=== PATIENT | female | born 1995 | race African-American/Black ===

== ENCOUNTER 2016-11-23 00:49 | Inpatient (IN) | payer OTHER ==
[~2016-11-23] VITALS: Ht 167.6 cm; Wt 67.6 kg
[~2016-11-23 00:49] MED LIST: ACET325T9 PO; AMOX1TAB61 PO; CIPR500T94 PO; DIPH25CA58 PO; FOLI1TAB16 PO; HYDR2TAB13 PO; HYDR4TAB; HYDR4TAB13 PO; HYDR500C3 PO; HYDR8TAB29 PO; IBUP-1007 PO; IBUP200T77 PO; METH10TA2 PO; METH5TAB2 PO; OXYC30TA PO; OXYC80TA16 PO; PRED-220 PO; ZOLP5TAB PO; ZOLP5TAB5
[2016-11-23] MEDS ORDERED: PROMETHAZINE 12.5 MG in IV NORMAL SALINE 50ML 50 ML IV PRN (01:30)
[2016-11-23] MEDS ORDERED: IV NORMAL SALINE 1000ML BAG 1,000 ML IV ONE (01:30)
--- NOTE | 2016-11-23 01:40 | PHYS DOC ---
Past Medical History Past Medical History: Sickle Cell Disease Additional Past Medical Histor: sickle cell anemia Past Surgical History: Alcohol Use: None Drug Use: None Adult General Chief Complaint Chief Complaint: PAIN CONTROL HPI HPI 21-year-old female who's having ongoing sickle cell pain for the last day area patient was recently admitted for sickle cell pain crisis and discharged several days ago. At that time she had anemia of sickle cell disease that required one unit of packed red blood cells. Currently the patient states she feels similar to her prior admission. She complains of generalized body aches. She denies any significant chest pain or shortness of breath. Patient does not follow up with a network systems operator. She has not yet found a network systems operator for her sickle cell pain. She does not have any other significant health problems. Currently she rates her pain a 10/10 on the pain scale. Pt is in no acute distress at this time. Review of Systems Review of Systems Constitutional: Denies fever or chills [] Eyes: Denies change in visual acuity, redness, or eye pain [] HENT: Denies nasal congestion or sore throat [] Respiratory: Denies cough or shortness of breath [] Cardiovascular: No additional information not addressed in HPI [] GI: Denies abdominal pain, nausea, vomiting, bloody stools or diarrhea [] : Denies dysuria or hematuria [] Musculoskeletal: Denies back pain, has joint pain [] Integument: Denies rash or skin lesions [] Neurologic: Denies headache, focal weakness or sensory changes [] Endocrine: Denies polyuria or polydipsia [] Current Medications Current Medications Current Medications Medications (Trade) Dose Ordered Sig/[facility] Start Time Stop Time Status Last Admin Dose Admin Hydromorphone HCl (Dilaudid) 1 mg Q2H 11/23/16 05:00 11/23/16 05:19 1 MG Hydromorphone HCl 1 mg 1 mg 1X ONCE 11/23/16 01:45 11/23/16 01:46 DC 11/23/16 02:18 1 MG Promethazine HCl (Phenergan Im) 12.5 mg 1X ONCE 11/23/16 02:15 11/23/16 02:16 DC 11/23/16 02:15 12.5 MG Promethazine HCl 12.5 mg/Sodium Chloride 50.5 ml @ 151.5 mls/ hr PRN Q6HRS PRN 11/23/16 01:30 Sodium Chloride (Iv Sodium Chloride 0.9% 1000ml Bag) 1,000 ml @ 1,000 mls/hr 1X ONCE 11/23/16 01:30 11/23/16 02:29 DC 11/23/16 01:50 1,000 MLS/HR Allergies Allergies Allergies Coded Allergies Type Severity Reaction Last Updated Verified acetaminophen Allergy Intermediate ITCHING 09/02/16 Yes I S O L A T I O N *CONTACT* Allergy Unknown 09/02/16 Yes Physical Exam Physical Exam Constitutional: Well developed, well nourished, no acute distress, non-toxic appearance. [] HENT: Normocephalic, atraumatic, bilateral external ears normal, oropharynx moist, no oral exudates, nose normal. [] Eyes: PERRLA, EOMI, conjunctiva normal, no discharge. [] Neck: Normal range of motion, no tenderness, supple, no stridor. [] Cardiovascular:Heart rate regular rhythm, no murmur [] Lungs & Thorax: Bilateral breath sounds clear to auscultation [] Abdomen: Bowel sounds normal, soft, no tenderness, no masses, no pulsatile masses. [] Skin: Warm, dry, no erythema, no rash. [] Back: No tenderness, no CVA tenderness. [] Extremities: No tenderness, no cyanosis, no clubbing, ROM intact, no edema. [] Neurologic: Alert and oriented X 3, normal motor function, normal sensory function, no focal deficits noted. [] Psychologic: Affect normal, judgement normal, mood normal. [] Current Patient Data Vital Signs Vital Signs Date Time Temp Pulse Resp B/P Pulse Ox O2 Delivery O2 Flow Rate FiO2 11/23/16 04:00 76 96 11/23/16 03:48 16 11/23/16 00:53 98.3 113/58 Room Air 98.3 Lab Values Laboratory Tests Test 11/23/16 02:40 White Blood Count 15.1x10^3/uL (4.0-11.0) H Red Blood Count 2.25x10^6/uL (3.50-5.40) L Hemoglobin 7.7g/dL (12.0-15.5) L Hematocrit 21.3% (36.0-47.0) L Mean Corpuscular Volume 95fL (79-100) Mean Corpuscular Hemoglobin 34pg (25-35) Mean Corpuscular Hemoglobin Concent 36g/dL (31-37) Red Cell Distribution Width 22.5% (11.5-14.5) H Platelet Count 341x10^3/uL (140-400) Neutrophils (%) (Auto) 51% (31-73) Lymphocytes (%) (Auto) 32% (24-48) Monocytes (%) (Auto) 13% (0-9) H Eosinophils (%) (Auto) 3% (0-3) Basophils (%) (Auto) 1% (0-3) Neutrophils # (Auto) 7.7x10^3uL (1.8-7.7) Lymphocytes # (Auto) 4.8x10^3/uL (1.0-4.8) Monocytes # (Auto) 2.0x10^3/uL (0.0-1.1) H Eosinophils # (Auto) 0.5x10^3/uL (0.0-0.7) Basophils # (Auto) 0.1x10^3/uL (0.0-0.2) Platelet Estimate Adequate (ADEQUATE) Giant Platelets Occ Polychromasia Mod Anisocytosis Mod Microcytosis Mod Sickle Cells Many Target Cells Few Reticulocyte Count (auto) 3.7% (0.5-2.5) H Sodium Level 141mmol/L (136-145) Potassium Level 4.3mmol/L (3.5-5.1) Chloride Level 108mmol/L (98-107) H Carbon Dioxide Level 26mmol/L (21-32) Anion Gap 7 (6-14) Blood Urea Nitrogen 5mg/dL (7-20) L Creatinine 0.5mg/dL (0.6-1.0) L Estimated GFR (Cockcroft-Gault) 185.0 Glucose Level 86mg/dL (70-99) Calcium Level 8.5mg/dL (8.5-10.1) Laboratory Tests 11/23/16 02:40 Laboratory Tests 11/23/16 02:40 EKG EKG [] Radiology/Procedures Radiology/Procedures [] Course & Med Decision Making Course & Med Decision Making Pertinent Labs and Imaging studies reviewed. (See chart for details) This 21-year-old female with ongoing sickle cell pain crisis will have blood work drawn to rule out any anemia. The patient will be given a dose of IV Dilaudid, IV fluid bolus, IV Phenergan and reassessed. If her pain is not controlled I will be admitting her again to the hospital pending her laboratory workup. Laboratory workup at this hospital stay was improved from previous lab draws that she had upon last admission. Her hemoglobin today is 7.7 and her reticulocyte count is 3.7. I discussed the need to admit her for sickle cell pain crisis that she has had no improvement after several doses of Dilaudid. Case was discussed the hospitalist, Dr. Mendoza, who agreed to admit for further evaluation and treatment. Dragon Disclaimer Dragon Disclaimer This electronic medical record was generated, in whole or in part, using a voice recognition dictation system. Departure Departure Impression: Primary Impression: Sickle cell pain crisis Admitting Physician: Tyrese Mendoza Condition: STABLE Referrals: NO PCP (PCP) LUIS ENRIQUE GARCIA DO Nov 23, 2016 01:40
[2016-11-23] MEDS ORDERED: HYDROMORPHONE 2 MG/ML VIAL. IV ONE ×2 (01:45→03:45)
[2016-11-23] MEDS ORDERED: PROMETHAZINE IM 25 MG/ML VIAL IM ONE (02:15)
[2016-11-23 02:54] LABS: BASO # 0.1 x10^3/uL (0.0-0.2); BASO % 1 % (0-3); EOS % 3 % (0-3); HEMATOCRIT 21.3 % (36.0-47.0); HEMOGLOBIN 7.7 g/dL (12.0-15.5); LYMPH # 4.8 x10^3/uL (1.0-4.8); LYMPH % 32 % (24-48); MEAN CORPUSCULAR HEMOGLOBIN 34 pg (25-35); MEAN CORPUSCULAR HGB CONC 36 g/dL (31-37); MEAN CORPUSCULAR VOLUME 95 fL (79-100); MONO % 13 % (0-9); NEUT % 51 % (31-73); PLATELET COUNT 341 x10^3/uL (140-400); RED BLOOD COUNT 2.25 x10^6/uL (3.50-5.40); RED CELL DISTRIBUTION WIDTH 22.5 % (11.5-14.5); WHITE BLOOD COUNT 15.1 x10^3/uL (4.0-11.0)
[2016-11-23 03:21] LABS: CALCIUM 8.5 mg/dL (8.5-10.1); CREATININE 0.5 mg/dL (0.6-1.0); POTASSIUM 4.3 mmol/L (3.5-5.1)
[2016-11-23] MEDS ORDERED: ACETAMINOPHEN 325 MG TABLET. PO PRN ×2 (05:15→22:15)
[2016-11-23] MEDS ORDERED: ONDANSETRON PF 4 MG/2 ML VIAL. IV PRN (05:15)
[2016-11-23] MEDS: HYDROMORPHONE 2 MG/ML VIAL. IV SCH ×10 (05:19→22:53)
[2016-11-23 05:22] LABS: PLT ESTIMATE ADEQUATE (ADEQUATE)
[2016-11-23 05:23] LABS: ANISOCYTOSIS MOD; MICROCYTOSIS MOD; POLYCHROMASIA MOD; SICKLE CELLS MANY; TARGET CELLS FEW
--- NOTE | 2016-11-23 06:11 | ACF ---
Admission Forms Criteria SICKLE CELL DISEASE Clinical Indications for Admission to Inpatient Care (Place 'X' for any and all applicable criteria): Admission is indicated for ANY ONE of the following(1)(2)(3)(4)(5): [X ]I. Inpatient admission required rather than observation care because of ANY ONE of the following: [ ]a) Altered mental status [ ]b) High fever or infection requiring inpatient admission as indicated by ANY ONE of the following: [ ]A. Appropriate outpatient observation care antimicrobial treatment unavailable, not effective, or not appropriate for infection [ ]B. Documented bacteremia [ ]C. Temp >104.9F (40.5C) (oral) [ ]D. Temp >103.1F (oral) or <96.8F(rectal) that does not respond to all emergency treatment measures [ ]c) Supplemental O2 or respiratory therapy for over 24 h that are performable only in acute inpatient setting [X ]d) Continuous parenteral narcoticsother major pain intervention for >24 h performable only in acute inpatient setting. [ ]e) Exchange transfusion [ ]f) Other condition, treatment or monitoring requiring inpatient admission [ ]II. Acute chest syndrome indicated by ALL of the following (10): [ ]a) New alveolar infiltrate involving at least one lung segment [ ]b) Associated pulmonary symptoms or findings as indicated by ANY ONE of the following: [ ]i) Chest pain [ ]ii) Hypoxemia [ ]iii) Tachypnea/dyspnea [ ]iv) Wheezing [ ]v) Cough [ ]vi) Sputum production [ ]III. Significant hypoxemia or acidosis (more severe than baseline) [ ]IV. Emergent surgery needed (eg, acute cholecystitis) [ ]V. -related complication(11) [ ]. Splenic or hepatic sequestration(12) [ ]VII. Aplastic crisis [ ]VIII. Priapism or other vascular complication(13) [ ]IX. Traumatic hyphema [A](14) [ ]X. Underlying condition requiring hospitalization (eg, osteomyelitis) [ ]XI. Signs or symptoms of central nervous system injury indicated by ANY ONE of the following: [ ]a) Stroke(9) [ ]b) Seizure [ ]c) Other significant central nervous system symptom or event [ ]XII. Acute renal failure Extended stay beyond goal length of stay may be needed for: [ ]a) Inadequate pain control [ ]b) Acute chest syndrome [ ]c) Sequestration or aplastic crisis (12) [ ]d) Pneumonia and asthma exacerbation [ ]e) Neurologic or vascular complications (25) [ ]f) Infection (eg, osteomyelitis) that requires ongoing treatment) The original [facility] content created by [facility] has been revised. The portions of the content which have been revised are identified through the use of italic text or in bold, and [facility] has neither reviewed nor approved the modified material. All other unmodified content is copyright [facility]. Please see references footnoted in the original [facility] edition 2016 Admission Criteria Met?: Yes YOKASTA MURRELL Nov 23, 2016 06:11
[2016-11-23] MEDS: IV NORMAL SALINE 1000ML BAG 1,000 ML IV SCH ×3 (09:43→22:53)
[2016-11-23 11:36] VITALS: BP 100/45
[2016-11-23 15:30] VITALS: BP 105/63
[2016-11-23] MEDS ORDERED: ZOLPIDEM 5 MG TABLET. PO PRN (19:30)
[2016-11-23 19:55] VITALS: BP 110/53
[2016-11-23] MEDS ORDERED: HYDROMORPHONE 4 MG TABLET. PO PRN (22:15)
[2016-11-23] MEDS: CEFTRIAXONE SODIUM 1 GM in IV NORMAL SALINE 50ML 50 ML IV SCH (22:50)
[2016-11-23 23:26] VITALS: BP 113/67
[2016-11-24] MEDS: DIPHENHYDRAMINE HCL 25 MG CAPSULE PO PRN ×2 (01:15→23:32)
[2016-11-24] MEDS: HYDROMORPHONE 2 MG/ML VIAL. IV SCH ×8 (01:17→15:00)
--- NOTE | 2016-11-24 02:28 | HP ---
ADMIT DATE: 11/23/2016 CHIEF COMPLAINT: Diffuse pain. HISTORY OF PRESENT ILLNESS: The patient is a pleasant middle-aged -[place] female who has sickle cell disease. She is well known to our service. She once again presents with her sickle cell crisis, has hemoglobin of 7.7. Retic count is high at 3.7. I have discussed the case with the ER physician. We are going to admit the patient, give her appropriate sickle cell crisis therapy. PAST MEDICAL HISTORY: Sickle cell disease, chronic pain, narcotic dependence. ALLERGIES: TYLENOL. FAMILY HISTORY: Sickle cell disease. SOCIAL HISTORY: She does not drink, smoke or take drugs. She is disabled. MEDICATIONS: Reviewed, please refer to the MRAD. REVIEW OF SYSTEMS: GENERAL: No history of weight change, weakness or fevers. She complains of diffuse pain. SKIN: No bruising, hair changes or rashes. EYES: No blurred, double or loss of vision. NOSE AND THROAT: No history of nosebleeds, hoarseness or sore throat. HEART: No history of palpitations, chest pain or shortness of breath on exertion. LUNGS: Denies cough, hemoptysis, wheezing or shortness of breath. GASTROINTESTINAL: Denies changes in appetite, nausea, vomiting, diarrhea or constipation. GENITOURINARY: No history of frequency, urgency, hesitancy or nocturia. NEUROLOGIC: Denies history of numbness, tingling, tremor or weakness. PSYCHIATRIC: No history of panic, anxiety or depression. ENDOCRINE: No history of heat or cold intolerance, polyuria or polydipsia. EXTREMITIES: Denies muscle weakness, joint pain, pain on walking or stiffness. PHYSICAL EXAMINATION: VITAL SIGNS: Temperature is afebrile, pulse 74, respirations 16, blood pressure 110/53. GENERAL: She is sleeping. She awakened. She is pleasant. HEART: Normal S1, S2. LUNGS: Clear. ABDOMEN: Soft, positive bowel sounds, tender. EXTREMITIES: Trace edema. SKIN: No rashes. PSYCHIATRIC: She is depressed. VASCULAR: Slow capillary refill. ENDOCRINE: No thyromegaly. LYMPHATICS: No cervical nodes. HEMATOPOIETIC: No bruising. LABORATORY DATA: White count 15, hemoglobin 7.7, platelets 341. Electrolytes: Sodium 141, potassium 4.3, chloride ____, bicarbonate 26, BUN 5, creatinine 0.5, glucose 86. ASSESSMENT AND PLAN: Sickle cell crisis. The patient has been admitted. We will give her vitamins, narcotics, IV fluids, p.r.n. oxygen, daily retic count. Continue her home medicines. Consult Dr. Brooks. OFELIA VAZQUEZ DO DR: KAILEY/rachel JOB#: [id number] / [id number]
[2016-11-24 03:21] VITALS: BP 106/67
[2016-11-24 07:03] VITALS: BP 94/49
[2016-11-24] MEDS: PREDNISONE 20 MG TABLET PO SCH (08:46)
[2016-11-24] MEDS: FOLIC ACID 1 MG TABLET PO SCH (08:46)
[2016-11-24] MEDS: HYDROXYUREA 500 MG CAPSULE PO SCH (08:54)
--- NOTE | 2016-11-24 08:57 | PDOC ---
Provider Note Provider Note onc consult dictated- [id number] SCD with repeated crises, 5 admits in last 3 month due to noncompliance, ran out of hydrea this time. Autoantibody devt from previous transfusions- Limit transfusions for hgb < 6 As retic count normalizes can DC NCM help with any interventions that can help limit admissions, ensure f/u. The hospital has become her PCP. RADHA ALSTON DO Nov 24, 2016 08:57
[2016-11-24 09:27] LABS: BASO # 0.1 x10^3/uL (0.0-0.2); BASO % 1 % (0-3); EOS % 3 % (0-3); HEMOGLOBIN 7.4 g/dL (12.0-15.5); LYMPH % 30 % (24-48); MEAN CORPUSCULAR HEMOGLOBIN 33 pg (25-35); MEAN CORPUSCULAR HGB CONC 35 g/dL (31-37); MEAN CORPUSCULAR VOLUME 94 fL (79-100); MONO % 12 % (0-9); NEUT % 54 % (31-73); PLATELET COUNT 377 x10^3/uL (140-400); RED BLOOD COUNT 2.23 x10^6/uL (3.50-5.40); WHITE BLOOD COUNT 13.3 x10^3/uL (4.0-11.0)
[2016-11-24] MEDS: IV NORMAL SALINE 1000ML BAG 1,000 ML IV SCH (09:30)
[2016-11-24 10:48] VITALS: BP 96/53
[2016-11-24] MEDS: HYDROMORPHONE STANDARD PCA 30 ML IV PRN (11:08)
--- NOTE | 2016-11-24 11:55 | PDOC ---
PROGRESS NOTES Chief Complaint Chief Complaint CC: Diffuse Pain 1. Sickle cell disease 2. Chronic pain 3. Narcotic dependence 4. Anemia History of Present Illness History of Present Illness Pt lying in bed today Pt takes Dilaudid at home, she says this is the only thing that helps her pain Pt said Dilaudid PURCHASING ANALYST is what controlled her pain during previous hospitalizations Discussed pain control and low Hgb with RN VSS Vitals Vitals Vital Signs Date Time Temp Pulse Resp B/P Pulse Ox O2 Delivery O2 Flow Rate FiO2 11/24/16 11:08 Room Air 11/24/16 10:48 98.1 89 17 96/53 95 98.1 Physical Exam General: Alert, Oriented X3 Heart: Regular rate, No murmurs Lungs: Clear, Other (No wheezing) Abdomen: Soft, No tenderness Extremities: No cyanosis, No edema Skin: No rashes, No breakdown Labs LABS Laboratory Tests Test 11/24/16 08:30 White Blood Count 13.3x10^3/uL (4.0-11.0) Red Blood Count 2.23x10^6/uL (3.50-5.40) Hemoglobin 7.4g/dL (12.0-15.5) Hematocrit 21.0% (36.0-47.0) Mean Corpuscular Volume 94fL (79-100) Mean Corpuscular Hemoglobin 33pg (25-35) Mean Corpuscular Hemoglobin Concent 35g/dL (31-37) Red Cell Distribution Width 22.0% (11.5-14.5) Platelet Count 377x10^3/uL (140-400) Neutrophils (%) (Auto) 54% (31-73) Lymphocytes (%) (Auto) 30% (24-48) Monocytes (%) (Auto) 12% (0-9) Eosinophils (%) (Auto) 3% (0-3) Basophils (%) (Auto) 1% (0-3) Neutrophils # (Auto) 7.2x10^3uL (1.8-7.7) Lymphocytes # (Auto) 4.0x10^3/uL (1.0-4.8) Monocytes # (Auto) 1.6x10^3/uL (0.0-1.1) Eosinophils # (Auto) 0.4x10^3/uL (0.0-0.7) Basophils # (Auto) 0.1x10^3/uL (0.0-0.2) Reticulocyte Count (auto) 6.3% (0.5-2.5) Ferritin 1224ng/mL (8-252) Review of Systems Review of Systems Complains of generalized pain Complains of weakness Complains of insomnia Assessment and Plan Assessmemt and Plan Problems Medical Problems: (1) Sickle cell pain crisis Status: Acute Assessment: CC: Diffuse Pain 1. Sickle cell disease 2. Chronic pain 3. Narcotic dependence Plan: Pain control with PURCHASING ANALYST Dilaudid Heme/Onc following - Possible DC as retic count normalizes Daily retic count Vitamins Continue fluids Start Ambien Monitor O2 sats Monitor Hgb level Recheck labs in am PTOT Appreciate subspecialty input Problems: Comment Review of Relevant I have reviewed the following items chris (where applicable) has been applied. Labs Laboratory Tests Test 11/23/16 02:40 11/24/16 08:30 White Blood Count 15.1x10^3/uL (4.0-11.0) 13.3x10^3/uL (4.0-11.0) Red Blood Count 2.25x10^6/uL (3.50-5.40) 2.23x10^6/uL (3.50-5.40) Hemoglobin 7.7g/dL (12.0-15.5) 7.4g/dL (12.0-15.5) Hematocrit 21.3% (36.0-47.0) 21.0% (36.0-47.0) Mean Corpuscular Volume 95fL (79-100) 94fL (79-100) Mean Corpuscular Hemoglobin 34pg (25-35) 33pg (25-35) Mean Corpuscular Hemoglobin Concent 36g/dL (31-37) 35g/dL (31-37) Red Cell Distribution Width 22.5% (11.5-14.5) 22.0% (11.5-14.5) Platelet Count 341x10^3/uL (140-400) 377x10^3/uL (140-400) Neutrophils (%) (Auto) 51% (31-73) 54% (31-73) Lymphocytes (%) (Auto) 32% (24-48) 30% (24-48) Monocytes (%) (Auto) 13% (0-9) 12% (0-9) Eosinophils (%) (Auto) 3% (0-3) 3% (0-3) Basophils (%) (Auto) 1% (0-3) 1% (0-3) Neutrophils # (Auto) 7.7x10^3uL (1.8-7.7) 7.2x10^3uL (1.8-7.7) Lymphocytes # (Auto) 4.8x10^3/uL (1.0-4.8) 4.0x10^3/uL (1.0-4.8) Monocytes # (Auto) 2.0x10^3/uL (0.0-1.1) 1.6x10^3/uL (0.0-1.1) Eosinophils # (Auto) 0.5x10^3/uL (0.0-0.7) 0.4x10^3/uL (0.0-0.7) Basophils # (Auto) 0.1x10^3/uL (0.0-0.2) 0.1x10^3/uL (0.0-0.2) Platelet Estimate Adequate (ADEQUATE) Giant Platelets Occ Polychromasia Mod Anisocytosis Mod Microcytosis Mod Sickle Cells Many Target Cells Few Reticulocyte Count (auto) 3.7% (0.5-2.5) 6.3% (0.5-2.5) Sodium Level 141mmol/L (136-145) Potassium Level 4.3mmol/L (3.5-5.1) Chloride Level 108mmol/L (98-107) Carbon Dioxide Level 26mmol/L (21-32) Anion Gap 7 (6-14) Blood Urea Nitrogen 5mg/dL (7-20) Creatinine 0.5mg/dL (0.6-1.0) Estimated GFR (Cockcroft-Gault) 185.0 Glucose Level 86mg/dL (70-99) Calcium Level 8.5mg/dL (8.5-10.1) Ferritin 1224ng/mL (8-252) Laboratory Tests Test 11/24/16 08:30 White Blood Count 13.3x10^3/uL (4.0-11.0) Red Blood Count 2.23x10^6/uL (3.50-5.40) Hemoglobin 7.4g/dL (12.0-15.5) Hematocrit 21.0% (36.0-47.0) Mean Corpuscular Volume 94fL (79-100) Mean Corpuscular Hemoglobin 33pg (25-35) Mean Corpuscular Hemoglobin Concent 35g/dL (31-37) Red Cell Distribution Width 22.0% (11.5-14.5) Platelet Count 377x10^3/uL (140-400) Neutrophils (%) (Auto) 54% (31-73) Lymphocytes (%) (Auto) 30% (24-48) Monocytes (%) (Auto) 12% (0-9) Eosinophils (%) (Auto) 3% (0-3) Basophils (%) (Auto) 1% (0-3) Neutrophils # (Auto) 7.2x10^3uL (1.8-7.7) Lymphocytes # (Auto) 4.0x10^3/uL (1.0-4.8) Monocytes # (Auto) 1.6x10^3/uL (0.0-1.1) Eosinophils # (Auto) 0.4x10^3/uL (0.0-0.7) Basophils # (Auto) 0.1x10^3/uL (0.0-0.2) Reticulocyte Count (auto) 6.3% (0.5-2.5) Ferritin 1224ng/mL (8-252) Medications Current Medications Hydromorphone HCl 1 mg 1 mg 1X ONCE IV Last administered on 11/23/16 02:18; Start 11/23/16 at 01:45; Stop 11/23/16 at 01:46; Status DC Promethazine HCl 12.5 mg/Sodium Chloride 50.5 ml @ 151.5 mls/ hr PRN Q6HRS PRN IV NAUSEA/VOMITING; Start 11/23/16 at 01:30 Sodium Chloride (Iv Sodium Chloride 0.9% 1000ml Bag) 1,000 ml @ 1,000 mls/hr 1X ONCE IV Last administered on 11/23/16 01:50; Start 11/23/16 at 01:30; Stop 11/23/16 at 02:29; Status DC Promethazine HCl (Phenergan Im) 12.5 mg 1X ONCE IM Last administered on 02:15; Start 11/23/16 at 02:15; Stop 11/23/16 at 02:16; Status DC Hydromorphone HCl (Dilaudid) 1 mg 1X ONCE IV Last administered on 11/23/16 03 :48; Start 11/23/16 at 03:45; Stop 11/23/16 at 03:46; Status DC Ondansetron HCl 4 mg 4 mg PRN Q8HRS PRN IV NAUSEA/VOMITING; Start 11/23/16 at 05:15; Stop 11/24/16 at 05:14; Status DC Sodium Chloride (Iv Sodium Chloride 0.9% 1000ml Bag) 1,000 ml @ 125 mls/hr Q8H IV Last administered on 11/23/16 22:53; Start 11/23/16 at 05:15; Stop at 05:14; Status DC Acetaminophen (Tylenol) 650 mg PRN Q4HRS PRN PO FEVER; Start 11/23/16 at 05:15 ; Stop 11/24/16 at 05:14; Status DC Hydromorphone HCl (Dilaudid) 1 mg Q2H IV Last administered on 11/24/16 08:47; Start 11/23/16 at 05:00 Zolpidem Tartrate (Ambien) 5 mg PRN QHS PRN PO sleep Last administered on 20:41; Start 11/23/16 at 19:30 Acetaminophen (Tylenol) 325 mg PRN QID PRN PO PAIN; Start 11/23/16 at 22:15 Diphenhydramine HCl (Benadryl) 50 mg PRN Q6HRS PRN PO ANXIETY / AGITATION Last administered on 11/24/16 01:15; Start 11/23/16 at 22:15 Folic Acid (Folic Acid) 1 mg DAILY PO Last administered on 11/24/16 08:46; Start 11/24/16 at 09:00 Hydromorphone HCl (Dilaudid) 4 mg PRN Q4HRS PRN PO PAIN; Start 11/23/16 at 22: 15 Hydroxyurea (Hydrea) 1,000 mg DAILY PO Last administered on 11/24/16 08:54; Start 11/24/16 at 09:00 Ibuprofen (Motrin) 200 mg PRN Q6HRS PRN PO INFLAMMATION; Start 11/23/16 at 22: 15 Prednisone 20 mg 20 mg DAILY PO Last administered on 11/24/16 08:46; Start at 09:00 Ceftriaxone Sodium 1 gm/ Sodium Chloride 50 ml @ 100 mls/hr Q24H IV Last administered on 11/23/16 22:50; Start 11/23/16 at 22:30 Sodium Chloride 1,000 ml @ 25 mls/hr Q24H IV ; Start 11/24/16 at 09:30 Hydromorphone HCl (Dilaudid Standard PURCHASING ANALYST) 30 ml @ 0 mls/hr CONT PRN PRN IV PROTOCOL Last administered on 11/24/16 11:08; Start 11/24/16 at 09:30 Active Scripts Active Dilaudid (Hydromorphone Hcl) 4 Mg Tablet 1 Tab PO Q4HRS PRN Tylenol (Acetaminophen) 325 Mg Tablet 2 Tab PO QID PRN Benadryl (Diphenhydramine Hcl) 25 Mg Capsule 50 Mg PO Q6HRS PRN Ambien (Zolpidem Tartrate) 5 Mg Tablet 1 Tab PO QHS PRN Prednisone 10 Mg Tablet 10 Mg PO UD Take 3 tablets by mouth daily for 3 days, then take 2 tablets by mouth daily for 3 days, then take 1 tablet by mouth daily for 3 days, then stop. Ibuprofen 200 Mg Tablet 200 Mg PO PRN Q6HRS PRN Folic Acid 1 Mg Tablet 1 Tab PO DAILY Hydroxyurea 500 Mg Capsule 1,000 Mg PO DAILY Vitals/I & O Vital Sign - Last 24 Hours 11/23/16 11/23/16 11/23/16 11/23/16 11:56 12:26 14:04 15:30 Temp 97.1 97.1 Pulse 85 Resp 17 B/P 105/63 Pulse Ox 96 96 96 94 O2 Delivery Room Air Room Air Room Air Room Air 11/23/16 11/23/16 11/23/16 11/23/16 16:39 18:32 19:55 20:20 Temp 97.9 97.9 Pulse 74 Resp 16 B/P 110/53 Pulse Ox 94 94 96 O2 Delivery Room Air Room Air Room Air Room Air 11/23/16 11/24/16 11/24/16 11/24/16 23:26 03:21 07:03 08:47 Temp 98.1 97.9 97.9 98.1 97.9 97.9 Pulse 83 77 78 Resp 16 18 17 B/P 113/67 106/67 94/49 Pulse Ox 93 96 95 O2 Delivery Room Air Room Air Room Air Room Air 11/24/16 11/24/16 10:48 11:08 Temp 98.1 98.1 Pulse 89 Resp 17 B/P 96/53 Pulse Ox 95 O2 Delivery Room Air Room Air Intake and Output 11/23/16 11/23/16 11/24/16 15:00 23:00 07:00 Intake Total 500 ml 540 ml Balance 500 ml 540 ml OFELIA VAZQUEZ III DO Nov 24, 2016 11:55
[2016-11-24] MEDS ORDERED: ZOLPIDEM 5 MG TABLET. PO PRN (12:00)
[2016-11-24 14:52] VITALS: BP 117/64
[2016-11-24 19:25] VITALS: BP 105/54
[2016-11-24] MEDS: CEFTRIAXONE SODIUM 1 GM in IV NORMAL SALINE 50ML 50 ML IV SCH (21:48)
[2016-11-24 23:13] VITALS: BP 110/59
--- NOTE | 2016-11-25 02:55 | CONS ---
DATE OF CONSULTATION: 11/24/2016 REFERRING PROVIDER: Dr. Mendoza. REASON FOR CONSULTATION: Sickle cell. HISTORY OF PRESENT ILLNESS: The patient is a 21-year-old female who has been admitted to the hospital now 5 times in the last 2 months. She has a history of sickle cell disease with pain crises when she runs out of pain medications are Hydrea, although she has an insurance, she does not seek the care of a PCP or outpatient subway operator in fact she has denied seen several different institutions in the [place] area. She again presented overnight with worsening diffuse pain. She has not had any fevers, chills, sore throat, cough, nausea, vomiting or diarrhea. She states that she ran out of Hydrea 1 week ago. Typically her hospital admissions are rather prolonged that she continues to have diffuse pain sometimes for up to two weeks. Her hemoglobin is roughly at her baseline at 7.7. Retic count 3.7. PAST MEDICAL HISTORY: Sickle cell disease, iron overload, transfuse and associated antibodies making finding compatible blood difficult. PAST SURGICAL HISTORY: . FAMILY HISTORY: Sickle cell disease in both her parents. SOCIAL HISTORY: She smokes 1 pack a day. ALLERGIES: TYLENOL. CURRENT MEDICATIONS: Prednisone, Hydrea, folic acid, Rocephin, ibuprofen p.r.n., Dilaudid p.r.n., Benadryl p.r.n., Ambien p.r.n., Dilaudid p.r.n., Compazine rather p.r.n. REVIEW OF SYSTEMS: Ten point review of systems completed and unremarkable right now with the exception of the diffuse arthralgias, which are typical for her during her admission. PHYSICAL EXAMINATION: VITAL SIGNS: Temperature 97.9, pulse 78, respiratory rate 17, blood pressure 94/49, 95% O2 on room air. GENERAL: She is alert and oriented. She is fatigued. She is not in any distress, this appears to be her baseline functional status compared to previous admission. HEENT: Extraocular muscles are intact. Sclerae are without icterus. Mucous membranes are dry. CARDIOVASCULAR: Heart is regular in rhythm and rate. LUNGS: Clear to auscultation bilaterally. ABDOMEN: Soft, nontender. EXTREMITIES: No edema. NEUROLOGIC: No focal deficits. IMAGING AND LABORATORY DATA: Labs appear at her baseline with CBC and retic count as above. BMP unremarkable. ASSESSMENT AND PLAN: The patient is a 21-year-old female with the following medical problems: 1. Sickle cell disease with noncompliance with Hydrea and pain medications as an outpatient. Despite having an insurance, she refuses to establish care with a PCP or subway operator and has refused to follow both in the [facility] and system. Our hospital has essentially become her primary care and when she runs out of pain medication, she returns with complications and for refills. I have asked the nurse case management assistance and possibly developing some sort of a better plan. She should continue on her Hydrea and folic acid. Her labs really do not appear that different from her baseline and hopefully this admission will be much shorter. I would recommend following her reticulocyte count and as it begins to normalize, we can plan for discharge. Please limit blood transfusions for unless her hemoglobin drops less than 6. 2. Iron overload. due to previous transfusions, repeat ferritin is pending. She would not be compliant with outpatient iron chelation therapy. 3. Medical noncompliance. Nurse case management consult as above. Although I doubt if she would see them, I would also recommend a psychiatric consult for depression or other reasons that seemed to contribute to her repeated noncompliance. 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 Last admission, we had special genotyping performed with the [facility]; however, it is difficult to obtain compatible units of blood for her. She also sometimes has mild transfusion reactions, therefore, it is imperative that we limit transfusions as the above. Thank you again for alerting us of her admission. RADHA ALSTON DO DR: Jose JOB#: [id number] / [id number] LINDA
[2016-11-25 03:20] VITALS: BP 112/69
[2016-11-25 05:56] LABS: BASO # 0.1 x10^3/uL (0.0-0.2); BASO % 1 % (0-3); EOS % 2 % (0-3); HEMOGLOBIN 7.2 g/dL (12.0-15.5); LYMPH # 4.8 x10^3/uL (1.0-4.8); LYMPH % 28 % (24-48); MEAN CORPUSCULAR HEMOGLOBIN 33 pg (25-35); MEAN CORPUSCULAR HGB CONC 35 g/dL (31-37); MEAN CORPUSCULAR VOLUME 95 fL (79-100); MONO % 12 % (0-9); NEUT % 58 % (31-73); PLATELET COUNT 414 x10^3/uL (140-400); RED BLOOD COUNT 2.17 x10^6/uL (3.50-5.40); RED CELL DISTRIBUTION WIDTH 22.3 % (11.5-14.5); WHITE BLOOD COUNT 17.4 x10^3/uL (4.0-11.0)
[2016-11-25 05:58] LABS: CREATININE 0.5 mg/dL (0.6-1.0); POTASSIUM 4.2 mmol/L (3.5-5.1)
[2016-11-25 06:43] LABS: HEMATOCRIT 20.5 % (36.0-47.0)
[2016-11-25 07:00] VITALS: BP 100/66
[2016-11-25] MEDS: PREDNISONE 20 MG TABLET PO SCH (09:04)
[2016-11-25] MEDS: FOLIC ACID 1 MG TABLET PO SCH (09:04)
--- NOTE | 2016-11-25 09:11 | PDOC ---
Subjective: Subjective: Onc f/u- SCD Pt with diffuse arthralgias, unchanged. No SOB, CP, abd pain. Concerned about sleep meds. Objective: Vital Signs: Vital Signs Date Time Temp Pulse Resp B/P Pulse Ox O2 Delivery O2 Flow Rate FiO2 11/25/16 07:00 98.5 72 18 100/66 96 Room Air 98.5 Physical Exam: Heart: Regular rate Extremities: No edema General: Alert, Oriented X3, Cooperative, No acute distress Lungs: Normal air movement Psych/Mental Status: Mental status NL, Mood NL Labs/Imaging: CBC stable, hgb 7.2 Retuc upt o 6.3 Ferritin 1200 Assessment/Plan A/P: 1. Sickle cell disease with noncompliance with Hydrea and pain medications as an outpatient. - Refuses to establish outpt care, comes to hospital when she runs out of meds - Continue hydrea, folic acid - Hold transfusions until hgb < 6 due to iron overload, autoantibodies causing difficulty finding blood and h/o transfusion reactions 2. Iron overload due to previous transfusions, - Ferritin 1200 - She would not be compliant with outpatient iron chelation therapy. 3. Medical noncompliance. Behavior, not financial 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 Limit transfusions as able. Ok to DC when retic count trends down. RADHA ALSTON DO Nov 25, 2016 09:11
[2016-11-25] MEDS: HYDROXYUREA 500 MG CAPSULE PO SCH (09:16)
[2016-11-25] MEDS: IV NORMAL SALINE 1000ML BAG 1,000 ML IV SCH ×2 (09:30→17:52)
[2016-11-25 10:45] VITALS: BP 111/64
--- NOTE | 2016-11-25 11:35 | PDOC ---
PROGRESS NOTES Chief Complaint Chief Complaint CC: Diffuse Pain 1. Sickle cell disease 2. Chronic pain 3. Narcotic dependence 4. Anemia History of Present Illness History of Present Illness Pt lying in bed today Pt says Dilaudid [employer] is not helping her pain at all, will increase dose Pt rates pain as 10/10 especially in her back Pt says she is unable to walk more than a few steps Discussed pain control and low Hgb with RN Pt denies opiate induced constipation Pt had difficulty sleeping last night Pt says she only got one 5mg Ambien last night even though the med orders indicate she can have two by an hour Called pharmacology to clarify that she can have a total of 10mg tonight. VSS Vitals Vitals Vital Signs Date Time Temp Pulse Resp B/P Pulse Ox O2 Delivery O2 Flow Rate FiO2 11/25/16 10:45 98.4 88 18 111/64 97 Room Air 98.4 Physical Exam General: Alert, Oriented X3, Cooperative, No acute distress Heart: Regular rate, No murmurs Lungs: Clear, Other (No wheezing) Abdomen: Soft, No tenderness Extremities: No edema Skin: No rashes, No breakdown Labs LABS Laboratory Tests Test 11/25/16 04:12 White Blood Count 17.4x10^3/uL (4.0-11.0) Red Blood Count 2.17x10^6/uL (3.50-5.40) Hemoglobin 7.2g/dL (12.0-15.5) Hematocrit 20.5% (36.0-47.0) Mean Corpuscular Volume 95fL (79-100) Mean Corpuscular Hemoglobin 33pg (25-35) Mean Corpuscular Hemoglobin Concent 35g/dL (31-37) Red Cell Distribution Width 22.3% (11.5-14.5) Platelet Count 414x10^3/uL (140-400) Neutrophils (%) (Auto) 58% (31-73) Lymphocytes (%) (Auto) 28% (24-48) Monocytes (%) (Auto) 12% (0-9) Eosinophils (%) (Auto) 2% (0-3) Basophils (%) (Auto) 1% (0-3) Neutrophils # (Auto) 10.1x10^3uL (1.8-7.7) Lymphocytes # (Auto) 4.8x10^3/uL (1.0-4.8) Monocytes # (Auto) 2.1x10^3/uL (0.0-1.1) Eosinophils # (Auto) 0.3x10^3/uL (0.0-0.7) Basophils # (Auto) 0.1x10^3/uL (0.0-0.2) Reticulocyte Count (auto) 4.1% (0.5-2.5) Sodium Level 141mmol/L (136-145) Potassium Level 4.2mmol/L (3.5-5.1) Chloride Level 108mmol/L (98-107) Carbon Dioxide Level 22mmol/L (21-32) Anion Gap 11 (6-14) Blood Urea Nitrogen 6mg/dL (7-20) Creatinine 0.5mg/dL (0.6-1.0) Estimated GFR (Cockcroft-Gault) 185.0 Glucose Level 75mg/dL (70-99) Calcium Level 9.0mg/dL (8.5-10.1) Review of Systems Review of Systems Complains of diffuse pain Complains of insomnia Assessment and Plan Assessmemt and Plan Problems Medical Problems: (1) Sickle cell pain crisis Status: Acute Assessment: CC: Diffuse Pain 1. Sickle cell disease 2. Chronic pain 3. Narcotic dependence 4. Anemia Plan: Increase dose of pain medication Ambien for insomnia Recheck retic count in am Heme/onc following - continue hydrea, folic acid, hold transfusions until hgb < 6, OK to DC when retic count trends down PTOT Recheck labs in am Continue home meds Problems: Comment Review of Relevant I have reviewed the following items chris (where applicable) has been applied. Labs Laboratory Tests Test 11/24/16 08:30 11/25/16 04:12 White Blood Count 13.3x10^3/uL (4.0-11.0) 17.4x10^3/uL (4.0-11.0) Red Blood Count 2.23x10^6/uL (3.50-5.40) 2.17x10^6/uL (3.50-5.40) Hemoglobin 7.4g/dL (12.0-15.5) 7.2g/dL (12.0-15.5) Hematocrit 21.0% (36.0-47.0) 20.5% (36.0-47.0) Mean Corpuscular Volume 94fL (79-100) 95fL (79-100) Mean Corpuscular Hemoglobin 33pg (25-35) 33pg (25-35) Mean Corpuscular Hemoglobin Concent 35g/dL (31-37) 35g/dL (31-37) Red Cell Distribution Width 22.0% (11.5-14.5) 22.3% (11.5-14.5) Platelet Count 377x10^3/uL (140-400) 414x10^3/uL (140-400) Neutrophils (%) (Auto) 54% (31-73) 58% (31-73) Lymphocytes (%) (Auto) 30% (24-48) 28% (24-48) Monocytes (%) (Auto) 12% (0-9) 12% (0-9) Eosinophils (%) (Auto) 3% (0-3) 2% (0-3) Basophils (%) (Auto) 1% (0-3) 1% (0-3) Neutrophils # (Auto) 7.2x10^3uL (1.8-7.7) 10.1x10^3uL (1.8-7.7) Lymphocytes # (Auto) 4.0x10^3/uL (1.0-4.8) 4.8x10^3/uL (1.0-4.8) Monocytes # (Auto) 1.6x10^3/uL (0.0-1.1) 2.1x10^3/uL (0.0-1.1) Eosinophils # (Auto) 0.4x10^3/uL (0.0-0.7) 0.3x10^3/uL (0.0-0.7) Basophils # (Auto) 0.1x10^3/uL (0.0-0.2) 0.1x10^3/uL (0.0-0.2) Reticulocyte Count (auto) 6.3% (0.5-2.5) 4.1% (0.5-2.5) Ferritin 1224ng/mL (8-252) Sodium Level 141mmol/L (136-145) Potassium Level 4.2mmol/L (3.5-5.1) Chloride Level 108mmol/L (98-107) Carbon Dioxide Level 22mmol/L (21-32) Anion Gap 11 (6-14) Blood Urea Nitrogen 6mg/dL (7-20) Creatinine 0.5mg/dL (0.6-1.0) Estimated GFR (Cockcroft-Gault) 185.0 Glucose Level 75mg/dL (70-99) Calcium Level 9.0mg/dL (8.5-10.1) Laboratory Tests Test 11/25/16 04:12 White Blood Count 17.4x10^3/uL (4.0-11.0) Red Blood Count 2.17x10^6/uL (3.50-5.40) Hemoglobin 7.2g/dL (12.0-15.5) Hematocrit 20.5% (36.0-47.0) Mean Corpuscular Volume 95fL (79-100) Mean Corpuscular Hemoglobin 33pg (25-35) Mean Corpuscular Hemoglobin Concent 35g/dL (31-37) Red Cell Distribution Width 22.3% (11.5-14.5) Platelet Count 414x10^3/uL (140-400) Neutrophils (%) (Auto) 58% (31-73) Lymphocytes (%) (Auto) 28% (24-48) Monocytes (%) (Auto) 12% (0-9) Eosinophils (%) (Auto) 2% (0-3) Basophils (%) (Auto) 1% (0-3) Neutrophils # (Auto) 10.1x10^3uL (1.8-7.7) Lymphocytes # (Auto) 4.8x10^3/uL (1.0-4.8) Monocytes # (Auto) 2.1x10^3/uL (0.0-1.1) Eosinophils # (Auto) 0.3x10^3/uL (0.0-0.7) Basophils # (Auto) 0.1x10^3/uL (0.0-0.2) Reticulocyte Count (auto) 4.1% (0.5-2.5) Sodium Level 141mmol/L (136-145) Potassium Level 4.2mmol/L (3.5-5.1) Chloride Level 108mmol/L (98-107) Carbon Dioxide Level 22mmol/L (21-32) Anion Gap 11 (6-14) Blood Urea Nitrogen 6mg/dL (7-20) Creatinine 0.5mg/dL (0.6-1.0) Estimated GFR (Cockcroft-Gault) 185.0 Glucose Level 75mg/dL (70-99) Calcium Level 9.0mg/dL (8.5-10.1) Medications Current Medications Hydromorphone HCl 1 mg 1 mg 1X ONCE IV Last administered on 11/23/16 02:18; Start 11/23/16 at 01:45; Stop 11/23/16 at 01:46; Status DC Promethazine HCl 12.5 mg/Sodium Chloride 50.5 ml @ 151.5 mls/ hr PRN Q6HRS PRN IV NAUSEA/VOMITING; Start 11/23/16 at 01:30 Sodium Chloride (Iv Sodium Chloride 0.9% 1000ml Bag) 1,000 ml @ 1,000 mls/hr 1X ONCE IV Last administered on 11/23/16 01:50; Start 11/23/16 at 01:30; Stop 11/23/16 at 02:29; Status DC Promethazine HCl (Phenergan Im) 12.5 mg 1X ONCE IM Last administered on 02:15; Start 11/23/16 at 02:15; Stop 11/23/16 at 02:16; Status DC Hydromorphone HCl (Dilaudid) 1 mg 1X ONCE IV Last administered on 11/23/16 03 :48; Start 11/23/16 at 03:45; Stop 11/23/16 at 03:46; Status DC Ondansetron HCl 4 mg 4 mg PRN Q8HRS PRN IV NAUSEA/VOMITING; Start 11/23/16 at 05:15; Stop 11/24/16 at 05:14; Status DC Sodium Chloride (Iv Sodium Chloride 0.9% 1000ml Bag) 1,000 ml @ 125 mls/hr Q8H IV Last administered on 11/23/16 22:53; Start 11/23/16 at 05:15; Stop at 05:14; Status DC Acetaminophen (Tylenol) 650 mg PRN Q4HRS PRN PO FEVER; Start 11/23/16 at 05:15 ; Stop 11/24/16 at 05:14; Status DC Hydromorphone HCl (Dilaudid) 1 mg Q2H IV Last administered on 11/24/16 08:47; Start 11/23/16 at 05:00; Stop 11/24/16 at 15:06; Status DC Zolpidem Tartrate (Ambien) 5 mg PRN QHS PRN PO sleep Last administered on 20:41; Start 11/23/16 at 19:30; Stop 11/24/16 at 15:12; Status DC Acetaminophen (Tylenol) 325 mg PRN QID PRN PO PAIN; Start 11/23/16 at 22:15 Diphenhydramine HCl (Benadryl) 50 mg PRN Q6HRS PRN PO ANXIETY / AGITATION Last administered on 11/24/16 23:32; Start 11/23/16 at 22:15 Folic Acid (Folic Acid) 1 mg DAILY PO Last administered on 11/25/16 09:04; Start 11/24/16 at 09:00 Hydromorphone HCl (Dilaudid) 4 mg PRN Q4HRS PRN PO PAIN; Start 11/23/16 at 22: 15; Stop 11/24/16 at 15:12; Status DC Hydroxyurea (Hydrea) 1,000 mg DAILY PO Last administered on 11/25/16 09:16; Start 11/24/16 at 09:00 Ibuprofen (Motrin) 200 mg PRN Q6HRS PRN PO INFLAMMATION; Start 11/23/16 at 22: 15 Prednisone 20 mg 20 mg DAILY PO Last administered on 11/25/16 09:04; Start at 09:00 Ceftriaxone Sodium 1 gm/ Sodium Chloride 50 ml @ 100 mls/hr Q24H IV Last administered on 11/24/16 21:48; Start 11/23/16 at 22:30 Sodium Chloride 1,000 ml @ 25 mls/hr Q24H IV ; Start 11/24/16 at 09:30 Hydromorphone HCl (Dilaudid Standard [employer]) 30 ml @ 0 mls/hr CONT PRN PRN IV PROTOCOL Last administered on 11/24/16 11:08; Start 11/24/16 at 09:30 Zolpidem Tartrate (Ambien) 5 mg PRN QHS PRN PO INSOMNIA Last administered on t 20:25; Start 11/24/16 at 12:00; Stop 11/25/16 at 08:23; Status DC Zolpidem Tartrate (Ambien) 5 mg PRN QHS PRN PO INSOMNIA, MAY REPEAT IN 1HR; Start 11/25/16 at 08:30 Active Scripts Active Dilaudid (Hydromorphone Hcl) 4 Mg Tablet 1 Tab PO Q4HRS PRN Tylenol (Acetaminophen) 325 Mg Tablet 2 Tab PO QID PRN Benadryl (Diphenhydramine Hcl) 25 Mg Capsule 50 Mg PO Q6HRS PRN Ambien (Zolpidem Tartrate) 5 Mg Tablet 1 Tab PO QHS PRN Prednisone 10 Mg Tablet 10 Mg PO UD Take 3 tablets by mouth daily for 3 days, then take 2 tablets by mouth daily for 3 days, then take 1 tablet by mouth daily for 3 days, then stop. Ibuprofen 200 Mg Tablet 200 Mg PO PRN Q6HRS PRN Folic Acid 1 Mg Tablet 1 Tab PO DAILY Hydroxyurea 500 Mg Capsule 1,000 Mg PO DAILY Vitals/I & O Vital Sign - Last 24 Hours 11/24/16 11/24/16 11/24/16 11/24/16 11:38 14:52 19:25 20:00 Temp 98.4 98.1 98.4 98.1 Pulse 88 78 Resp 17 16 B/P 117/64 105/54 Pulse Ox 96 95 O2 Delivery Room Air Room Air Room Air Room Air 11/24/16 11/25/16 11/25/16 11/25/16 23:13 03:20 07:00 10:45 Temp 98.2 98.1 98.5 98.4 98.2 98.1 98.5 98.4 Pulse 78 86 72 88 Resp 18 18 18 18 B/P 110/59 112/69 100/66 111/64 Pulse Ox 95 96 96 97 O2 Delivery Room Air Room Air Room Air Room Air Intake and Output 11/24/16 11/24/16 11/25/16 15:00 23:00 07:00 Intake Total 800 ml 1060 ml Output Total 3700 ml Balance 800 ml -2640 ml CASTLE,NIAL K III DO Nov 25, 2016 11:35
[2016-11-25] MEDS: HYDROMORPHONE STANDARD PCA 30 ML IV PRN (14:48)
[2016-11-25 15:00] VITALS: BP 121/80
[2016-11-25 19:10] VITALS: BP 103/48
[2016-11-25] MEDS: ZOLPIDEM 5 MG TABLET. PO PRN ×2 (20:01→21:00)
[2016-11-25] MEDS: CEFTRIAXONE SODIUM 1 GM in IV NORMAL SALINE 50ML 50 ML IV SCH (21:31)
[2016-11-25 23:10] VITALS: BP 112/79
[2016-11-26] MEDS: IBUPROFEN 200 MG TABLET PO PRN (05:55)
[2016-11-26 07:00] VITALS: BP 120/71
--- NOTE | 2016-11-26 08:59 | PDOC ---
Subjective: Subjective: Onc f/u- SCD Pt with increased pain overnight, states it started when IVF rate decreased. Slept better. Could not get labs drawn this AM. Arthralgias unchanged. Objective: Vital Signs: Vital Signs Date Time Temp Pulse Resp B/P Pulse Ox O2 Delivery O2 Flow Rate FiO2 11/26/16 07:00 98.1 69 18 120/71 96 Room Air 98.1 Physical Exam: Heart: Regular rate Extremities: No edema General: Alert, Oriented X3, Cooperative, No acute distress Lungs: Normal air movement Psych/Mental Status: Mental status NL, Mood NL Labs/Imaging: Not able to draw labs. Assessment/Plan A/P: 1. Sickle cell disease with noncompliance with Hydrea and pain medications as an outpatient. - Refuses to establish outpt care, comes to hospital when she runs out of meds - Continue hydrea, folic acid - Hold transfusions until hgb < 6 due to iron overload, autoantibodies causing difficulty finding blood and h/o transfusion reactions - Increased IVF back to 100 ml/hr. - Check labs tomorrow if possible; QOD is fine, not able to obtain labs today. 2. Iron overload due to previous transfusions, - Ferritin 1200 - She would not be compliant with outpatient iron chelation therapy. 3. Medical noncompliance. Behavior, not financial 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 Limit transfusions as able. Ok to DC when retic count trends down. I will see again on Thu. RADHA ALSTON DO Nov 26, 2016 08:59
[2016-11-26] MEDS: FOLIC ACID 1 MG TABLET PO SCH (09:08)
[2016-11-26] MEDS: PREDNISONE 20 MG TABLET PO SCH (09:08)
[2016-11-26] MEDS: HYDROXYUREA 500 MG CAPSULE PO SCH (09:20)
[2016-11-26 09:36] LABS: BASO # 0.1 x10^3/uL (0.0-0.2); BASO % 1 % (0-3); EOS % 2 % (0-3); HEMATOCRIT 21.7 % (36.0-47.0); HEMOGLOBIN 7.7 g/dL (12.0-15.5); LYMPH # 5.2 x10^3/uL (1.0-4.8); LYMPH % 26 % (24-48); MEAN CORPUSCULAR HEMOGLOBIN 33 pg (25-35); MEAN CORPUSCULAR HGB CONC 35 g/dL (31-37); MEAN CORPUSCULAR VOLUME 94 fL (79-100); MONO % 11 % (0-9); NEUT % 61 % (31-73); PLATELET COUNT 439 x10^3/uL (140-400); RED CELL DISTRIBUTION WIDTH 22.2 % (11.5-14.5); WHITE BLOOD COUNT 19.8 x10^3/uL (4.0-11.0)
[2016-11-26 09:56] LABS: CREATININE 0.6 mg/dL (0.6-1.0); GFR 149.9; POTASSIUM 4.2 mmol/L (3.5-5.1)
[2016-11-26 10:52] VITALS: BP 106/69
[2016-11-26] MEDS: HYDROMORPHONE STANDARD PCA 30 ML IV PRN ×2 (11:25→23:18)
[2016-11-26 11:59] LABS: % EOS 2 % (0-5); PLT ESTIMATE INCREASED (ADEQUATE)
[2016-11-26 12:00] LABS: POLYCHROMASIA PRESENT
[2016-11-26 12:01] LABS: ANISOCYTOSIS MOD; POIKILOCYTOSIS MARKED; SICKLE CELLS PRESENT; TARGET CELLS PRESENT
[2016-11-26 12:03] LABS: SCHISTOCYTES OCC
[2016-11-26 12:04] LABS: HOWELL-JOLLY BODIES PRESENT
[2016-11-26 12:05] LABS: SPHEROCYTES FEW
[2016-11-26 15:05] VITALS: BP 108/55
--- NOTE | 2016-11-26 15:24 | PDOC ---
PROGRESS NOTES Chief Complaint Chief Complaint CC: sickle cell crisis 1. Sickle cell disease, acute pain and disease 2. Chronic pain 3. Narcotic dependence and tolerance 4. Anemia 5. 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40) Hemoglobin 7.7g/dL (12.0-15.5) Hematocrit 21.7% (36.0-47.0) Mean Corpuscular Volume 94fL (79-100) Mean Corpuscular Hemoglobin 33pg (25-35) Mean Corpuscular Hemoglobin Concent 35g/dL (31-37) Red Cell Distribution Width 22.2% (11.5-14.5) Platelet Count 439x10^3/uL (140-400) Neutrophils (%) (Auto) 61% (31-73) Lymphocytes (%) (Auto) 26% (24-48) Monocytes (%) (Auto) 11% (0-9) Eosinophils (%) (Auto) 2% (0-3) Basophils (%) (Auto) 1% (0-3) Neutrophils # (Auto) 12.0x10^3uL (1.8-7.7) Lymphocytes # (Auto) 5.2x10^3/uL (1.0-4.8) Monocytes # (Auto) 2.1x10^3/uL (0.0-1.1) Eosinophils # (Auto) 0.3x10^3/uL (0.0-0.7) Basophils # (Auto) 0.1x10^3/uL (0.0-0.2) Segmented Neutrophils % 60% (35-66) Band Neutrophils % 5% (0-9) Lymphocytes % 23% (24-48) Monocytes % 10% (0-10) Eosinophils % 2% (0-5) Platelet Estimate Increased (ADEQUATE) Polychromasia Present Poikilocytosis Marked Anisocytosis Mod Spherocytes Few Sickle Cells Present Target Cells Present [employer] Bodies Present Schistocytes Occ Reticulocyte Count (auto) 5.3% (0.5-2.5) Sodium Level 143mmol/L (136-145) Potassium Level 4.2mmol/L (3.5-5.1) Chloride Level 107mmol/L (98-107) Carbon Dioxide Level 26mmol/L (21-32) Anion Gap 10 (6-14) Blood Urea Nitrogen 7mg/dL (7-20) Creatinine 0.6mg/dL (0.6-1.0) Estimated GFR (Cockcroft-Gault) 149.9 Glucose Level 87mg/dL (70-99) Calcium Level 9.0mg/dL (8.5-10.1) Review of Systems Review of Systems pain no n.v.'d Assessment and Plan Assessmemt and Plan Problems Medical Problems: (1) Sickle cell pain crisis Status: Acute Problems: Comment Review of Relevant I have reviewed the following items chris (where applicable) has been applied. Labs Laboratory Tests Test 11/25/16 04:12 11/26/16 09:10 White Blood Count 17.4x10^3/uL (4.0-11.0) 19.8x10^3/uL (4.0-11.0) Red Blood Count 2.17x10^6/uL (3.50-5.40) 2.30x10^6/uL (3.50-5.40) Hemoglobin 7.2g/dL (12.0-15.5) 7.7g/dL (12.0-15.5) Hematocrit 20.5% (36.0-47.0) 21.7% (36.0-47.0) Mean Corpuscular Volume 95fL (79-100) 94fL (79-100) Mean Corpuscular Hemoglobin 33pg (25-35) 33pg (25-35) Mean Corpuscular Hemoglobin Concent 35g/dL (31-37) 35g/dL (31-37) Red Cell Distribution Width 22.3% (11.5-14.5) 22.2% (11.5-14.5) Platelet Count 414x10^3/uL (140-400) 439x10^3/uL (140-400) Neutrophils (%) (Auto) 58% (31-73) 61% (31-73) Lymphocytes (%) (Auto) 28% (24-48) 26% (24-48) Monocytes (%) (Auto) 12% (0-9) 11% (0-9) Eosinophils (%) (Auto) 2% (0-3) 2% (0-3) Basophils (%) (Auto) 1% (0-3) 1% (0-3) Neutrophils # (Auto) 10.1x10^3uL (1.8-7.7) 12.0x10^3uL (1.8-7.7) Lymphocytes # (Auto) 4.8x10^3/uL (1.0-4.8) 5.2x10^3/uL (1.0-4.8) Monocytes # (Auto) 2.1x10^3/uL (0.0-1.1) 2.1x10^3/uL (0.0-1.1) Eosinophils # (Auto) 0.3x10^3/uL (0.0-0.7) 0.3x10^3/uL (0.0-0.7) Basophils # (Auto) 0.1x10^3/uL (0.0-0.2) 0.1x10^3/uL (0.0-0.2) Reticulocyte Count (auto) 4.1% (0.5-2.5) 5.3% (0.5-2.5) Sodium Level 141mmol/L (136-145) 143mmol/L (136-145) Potassium Level 4.2mmol/L (3.5-5.1) 4.2mmol/L (3.5-5.1) Chloride Level 108mmol/L (98-107) 107mmol/L (98-107) Carbon Dioxide Level 22mmol/L (21-32) 26mmol/L (21-32) Anion Gap 11 (6-14) 10 (6-14) Blood Urea Nitrogen 6mg/dL (7-20) 7mg/dL (7-20) Creatinine 0.5mg/dL (0.6-1.0) 0.6mg/dL (0.6-1.0) Estimated GFR (Cockcroft-Gault) 185.0 149.9 Glucose Level 75mg/dL (70-99) 87mg/dL (70-99) Calcium Level 9.0mg/dL (8.5-10.1) 9.0mg/dL (8.5-10.1) Segmented Neutrophils % 60% (35-66) Band Neutrophils % 5% (0-9) Lymphocytes % 23% (24-48) Monocytes % 10% (0-10) Eosinophils % 2% (0-5) Platelet Estimate Increased (ADEQUATE) Polychromasia Present Poikilocytosis Marked Anisocytosis Mod Spherocytes Few Sickle Cells Present Target Cells Present [employer] Bodies Present Schistocytes Occ Laboratory Tests Test 11/26/16 09:10 White Blood Count 19.8x10^3/uL (4.0-11.0) Red Blood Count 2.30x10^6/uL (3.50-5.40) Hemoglobin 7.7g/dL (12.0-15.5) Hematocrit 21.7% (36.0-47.0) Mean Corpuscular Volume 94fL (79-100) Mean Corpuscular Hemoglobin 33pg (25-35) Mean Corpuscular Hemoglobin Concent 35g/dL (31-37) Red Cell Distribution Width 22.2% (11.5-14.5) Platelet Count 439x10^3/uL (140-400) Neutrophils (%) (Auto) 61% (31-73) Lymphocytes (%) (Auto) 26% (24-48) Monocytes (%) (Auto) 11% (0-9) Eosinophils (%) (Auto) 2% (0-3) Basophils (%) (Auto) 1% (0-3) Neutrophils # (Auto) 12.0x10^3uL (1.8-7.7) Lymphocytes # (Auto) 5.2x10^3/uL (1.0-4.8) Monocytes # (Auto) 2.1x10^3/uL (0.0-1.1) Eosinophils # (Auto) 0.3x10^3/uL (0.0-0.7) Basophils # (Auto) 0.1x10^3/uL (0.0-0.2) Segmented Neutrophils % 60% (35-66) Band Neutrophils % 5% (0-9) Lymphocytes % 23% (24-48) Monocytes % 10% (0-10) Eosinophils % 2% (0-5) Platelet Estimate Increased (ADEQUATE) Polychromasia Present Poikilocytosis Marked Anisocytosis Mod Spherocytes Few Sickle Cells Present Target Cells Present [employer] Bodies Present Schistocytes Occ Reticulocyte Count (auto) 5.3% (0.5-2.5) Sodium Level 143mmol/L (136-145) Potassium Level 4.2mmol/L (3.5-5.1) Chloride Level 107mmol/L (98-107) Carbon Dioxide Level 26mmol/L (21-32) Anion Gap 10 (6-14) Blood Urea Nitrogen 7mg/dL (7-20) Creatinine 0.6mg/dL (0.6-1.0) Estimated GFR (Cockcroft-Gault) 149.9 Glucose Level 87mg/dL (70-99) Calcium Level 9.0mg/dL (8.5-10.1) Medications Current Medications Hydromorphone HCl 1 mg 1 mg 1X ONCE IV Last administered on 11/23/16 02:18; Start 11/23/16 at 01:45; Stop 11/23/16 at 01:46; Status DC Promethazine HCl 12.5 mg/Sodium Chloride 50.5 ml @ 151.5 mls/ hr PRN Q6HRS PRN IV NAUSEA/VOMITING; Start 11/23/16 at 01:30 Sodium Chloride (Iv Sodium Chloride 0.9% 1000ml Bag) 1,000 ml @ 1,000 mls/hr 1X ONCE IV Last administered on 11/23/16 01:50; Start 11/23/16 at 01:30; Stop 11/23/16 at 02:29; Status DC Promethazine HCl (Phenergan Im) 12.5 mg 1X ONCE IM Last administered on 02:15; Start 11/23/16 at 02:15; Stop 11/23/16 at 02:16; Status DC Hydromorphone HCl (Dilaudid) 1 mg 1X ONCE IV Last administered on 11/23/16 03 :48; Start 11/23/16 at 03:45; Stop 11/23/16 at 03:46; Status DC Ondansetron HCl 4 mg 4 mg PRN Q8HRS PRN IV NAUSEA/VOMITING; Start 11/23/16 at 05:15; Stop 11/24/16 at 05:14; Status DC Sodium Chloride (Iv Sodium Chloride 0.9% 1000ml Bag) 1,000 ml @ 125 mls/hr Q8H IV Last administered on 11/23/16 22:53; Start 11/23/16 at 05:15; Stop at 05:14; Status DC Acetaminophen (Tylenol) 650 mg PRN Q4HRS PRN PO FEVER; Start 11/23/16 at 05:15 ; Stop 11/24/16 at 05:14; Status DC Hydromorphone HCl (Dilaudid) 1 mg Q2H IV Last administered on 11/24/16 08:47; Start 11/23/16 at 05:00; Stop 11/24/16 at 15:06; Status DC Zolpidem Tartrate (Ambien) 5 mg PRN QHS PRN PO sleep Last administered on 20:41; Start 11/23/16 at 19:30; Stop 11/24/16 at 15:12; Status DC Acetaminophen (Tylenol) 325 mg PRN QID PRN PO PAIN; Start 11/23/16 at 22:15 Diphenhydramine HCl (Benadryl) 50 mg PRN Q6HRS PRN PO ANXIETY / AGITATION Last administered on 11/24/16 23:32; Start 11/23/16 at 22:15 Folic Acid (Folic Acid) 1 mg DAILY PO Last administered on 11/26/16 09:08; Start 11/24/16 at 09:00 Hydromorphone HCl (Dilaudid) 4 mg PRN Q4HRS PRN PO PAIN; Start 11/23/16 at 22: 15; Stop 11/24/16 at 15:12; Status DC Hydroxyurea (Hydrea) 1,000 mg DAILY PO Last administered on 11/26/16 09:20; Start 11/24/16 at 09:00 Ibuprofen (Motrin) 200 mg PRN Q6HRS PRN PO INFLAMMATION Last administered on 05:55; Start 11/23/16 at 22:15 Prednisone 20 mg 20 mg DAILY PO Last administered on 11/26/16 09:08; Start at 09:00 Ceftriaxone Sodium 1 gm/ Sodium Chloride 50 ml @ 100 mls/hr Q24H IV Last administered on 11/25/16 21:31; Start 11/23/16 at 22:30 Sodium Chloride 1,000 ml @ 100 mls/hr Q10H IV Last administered on 11/25/16 17:52; Start 11/24/16 at 09:30 Hydromorphone HCl (Dilaudid Standard BICYCLE INSPECTOR) 30 ml @ 0 mls/hr CONT PRN PRN IV PROTOCOL Last administered on 11/26/16 11:25; Start 11/24/16 at 09:30; Stop at 14:37; Status DC Zolpidem Tartrate (Ambien) 5 mg PRN QHS PRN PO INSOMNIA Last administered on 20:25; Start 11/24/16 at 12:00; Stop 11/25/16 at 08:23; Status DC Zolpidem Tartrate 5 mg 5 mg PRN QHS PRN PO INSOMNIA, MAY REPEAT IN 1HR Last administered on 11/25/16 21:00; Start 11/25/16 at 08:30 Hydromorphone HCl (Dilaudid Standard BICYCLE INSPECTOR) 30 ml @ 0 mls/hr CONT PRN PRN IV PROTOCOL; Start 11/26/16 at 14:45 Active Scripts Active Dilaudid (Hydromorphone Hcl) 4 Mg Tablet 1 Tab PO Q4HRS PRN Tylenol (Acetaminophen) 325 Mg Tablet 2 Tab PO QID PRN Benadryl (Diphenhydramine Hcl) 25 Mg Capsule 50 Mg PO Q6HRS PRN Ambien (Zolpidem Tartrate) 5 Mg Tablet 1 Tab PO QHS PRN Prednisone 10 Mg Tablet 10 Mg PO UD Take 3 tablets by mouth daily for 3 days, then take 2 tablets by mouth daily for 3 days, then take 1 tablet by mouth daily for 3 days, then stop. Ibuprofen 200 Mg Tablet 200 Mg PO PRN Q6HRS PRN Folic Acid 1 Mg Tablet 1 Tab PO DAILY Hydroxyurea 500 Mg Capsule 1,000 Mg PO DAILY Vitals/I & O Vital Sign - Last 24 Hours 11/25/16 11/25/16 11/25/16 11/26/16 19:10 20:00 23:10 07:00 Temp 99.0 98.5 98.1 99.0 98.5 98.1 Pulse 87 67 69 Resp 16 18 18 B/P 103/48 112/79 120/71 Pulse Ox 97 96 96 O2 Delivery Room Air Room Air Room Air Room Air 11/26/16 11/26/16 11/26/16 11/26/16 08:00 10:52 11:25 11:55 Temp 99.0 99.0 Pulse 76 Resp 18 18 B/P 106/69 Pulse Ox 98 98 O2 Delivery Room Air Room Air Room Air Room Air Intake and Output 11/25/16 11/25/16 11/26/16 14:59 22:59 06:59 Intake Total 800 ml 900 ml 1300 ml Output Total 5000 ml 1600 ml Balance 800 ml -4100 ml -300 ml LINDSEY PETTIT MD Nov 26, 2016 15:24
[2016-11-26] MEDS: IV NORMAL SALINE 1000ML BAG 1,000 ML IV SCH ×2 (17:38→19:30)
[2016-11-26 19:20] VITALS: BP 95/52
[2016-11-26] MEDS: ZOLPIDEM 5 MG TABLET. PO PRN ×2 (20:40→23:06)
[2016-11-26] MEDS: CEFTRIAXONE SODIUM 1 GM in IV NORMAL SALINE 50ML 50 ML IV SCH (23:09)
[2016-11-26 23:47] VITALS: BP 110/66
[2016-11-27 03:45] VITALS: BP 113/77
[2016-11-27] MEDS: IBUPROFEN 200 MG TABLET PO PRN (04:10)
[2016-11-27] MEDS: IV NORMAL SALINE 1000ML BAG 1,000 ML IV SCH ×4 (04:10→22:50)
[2016-11-27 07:00] VITALS: BP 107/61
[2016-11-27] MEDS: FOLIC ACID 1 MG TABLET PO SCH (08:48)
[2016-11-27] MEDS: PREDNISONE 20 MG TABLET PO SCH (08:48)
[2016-11-27] MEDS: HYDROXYUREA 500 MG CAPSULE PO SCH (08:55)
[2016-11-27 09:24] LABS: BASO # 0.1 x10^3/uL (0.0-0.2); BASO % 1 % (0-3); EOS % 3 % (0-3); LYMPH % 31 % (24-48); MEAN CORPUSCULAR HEMOGLOBIN 33 pg (25-35); MEAN CORPUSCULAR HGB CONC 35 g/dL (31-37); MEAN CORPUSCULAR VOLUME 95 fL (79-100); MONO % 11 % (0-9); NEUT % 55 % (31-73); PLATELET COUNT 412 x10^3/uL (140-400); RED BLOOD COUNT 2.08 x10^6/uL (3.50-5.40); RED CELL DISTRIBUTION WIDTH 22.4 % (11.5-14.5); WHITE BLOOD COUNT 16.2 x10^3/uL (4.0-11.0)
[2016-11-27 09:28] LABS: HEMOGLOBIN 6.9 g/dL (12.0-15.5)
[2016-11-27 09:29] LABS: HEMATOCRIT 19.7 % (36.0-47.0)
[2016-11-27 09:43] LABS: CALCIUM 8.8 mg/dL (8.5-10.1); CREATININE 0.6 mg/dL (0.6-1.0); GFR 149.9; POTASSIUM 4.1 mmol/L (3.5-5.1)
[2016-11-27 11:00] VITALS: BP 96/44
[2016-11-27] MEDS: HYDROMORPHONE STANDARD PCA 30 ML IV PRN (12:14)
--- NOTE | 2016-11-27 14:07 | PDOC ---
PROGRESS NOTES Chief Complaint Chief Complaint CC: sickle cell crisis 1. Sickle cell disease, acute pain and disease 2. Chronic pain 3. Narcotic dependence and tolerance 4. Anemia 5. 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 for her HAs been on STRANDING MACHINE OPERATOR HELPER x 3 days now Hgb 6.9, retic ct 5 (from 4) As per heme onc, would transfuse only if hgb < 6 - pt has very high ferritin- iron overload, fear of autoantibodies, etc PLAN: Recheck retic ct If lower and hgb stable then will dc home on PO home pain emds DOES NOT need bridging of patient assistant with oral pain meds (not working) HEavy discussion Signif ftime 30 mins in room Dw her complications of iron overload- understands dw case mx, insurance has denied in pt stay, will do peer to peer Stay necessitates IV p[ain meds, continuous Vitals Vitals Vital Signs Date Time Temp Pulse Resp B/P Pulse Ox O2 Delivery O2 Flow Rate FiO2 11/27/16 12:47 16 Room Air 11/27/16 11:00 98.1 77 96/44 100 98.1 Physical Exam General: Alert, Oriented X3, Cooperative, mild distress Heart: Regular rate Lungs: Clear, Other (No wheezing) Abdomen: Soft, No tenderness Extremities: No edema Skin: No rashes, No breakdown Labs LABS Laboratory Tests Test 11/27/16 09:00 White Blood Count 16.2x10^3/uL (4.0-11.0) Red Blood Count 2.08x10^6/uL (3.50-5.40) Hemoglobin 6.9g/dL (12.0-15.5) Hematocrit 19.7% (36.0-47.0) Mean Corpuscular Volume 95fL (79-100) Mean Corpuscular Hemoglobin 33pg (25-35) Mean Corpuscular Hemoglobin Concent 35g/dL (31-37) Red Cell Distribution Width 22.4% (11.5-14.5) Platelet Count 412x10^3/uL (140-400) Neutrophils (%) (Auto) 55% (31-73) Lymphocytes (%) (Auto) 31% (24-48) Monocytes (%) (Auto) 11% (0-9) Eosinophils (%) (Auto) 3% (0-3) Basophils (%) (Auto) 1% (0-3) Neutrophils # (Auto) 8.8x10^3uL (1.8-7.7) Lymphocytes # (Auto) 5.0x10^3/uL (1.0-4.8) Monocytes # (Auto) 1.8x10^3/uL (0.0-1.1) Eosinophils # (Auto) 0.5x10^3/uL (0.0-0.7) Basophils # (Auto) 0.1x10^3/uL (0.0-0.2) Sodium Level 142mmol/L (136-145) Potassium Level 4.1mmol/L (3.5-5.1) Chloride Level 107mmol/L (98-107) Carbon Dioxide Level 24mmol/L (21-32) Anion Gap 11 (6-14) Blood Urea Nitrogen 8mg/dL (7-20) Creatinine 0.6mg/dL (0.6-1.0) Estimated GFR (Cockcroft-Gault) 149.9 Glucose Level 88mg/dL (70-99) Calcium Level 8.8mg/dL (8.5-10.1) Review of Systems Review of Systems pain arthralgias, no CP, no SOA Assessment and Plan Assessmemt and Plan Problems Medical Problems: (1) Sickle cell pain crisis Status: Acute Problems: Comment Review of Relevant I have reviewed the following items chris (where applicable) has been applied. Labs Laboratory Tests Test 11/26/16 09:10 11/27/16 09:00 White Blood Count 19.8x10^3/uL (4.0-11.0) 16.2x10^3/uL (4.0-11.0) Red Blood Count 2.30x10^6/uL (3.50-5.40) 2.08x10^6/uL (3.50-5.40) Hemoglobin 7.7g/dL (12.0-15.5) 6.9g/dL (12.0-15.5) Hematocrit 21.7% (36.0-47.0) 19.7% (36.0-47.0) Mean Corpuscular Volume 94fL (79-100) 95fL (79-100) Mean Corpuscular Hemoglobin 33pg (25-35) 33pg (25-35) Mean Corpuscular Hemoglobin Concent 35g/dL (31-37) 35g/dL (31-37) Red Cell Distribution Width 22.2% (11.5-14.5) 22.4% (11.5-14.5) Platelet Count 439x10^3/uL (140-400) 412x10^3/uL (140-400) Neutrophils (%) (Auto) 61% (31-73) 55% (31-73) Lymphocytes (%) (Auto) 26% (24-48) 31% (24-48) Monocytes (%) (Auto) 11% (0-9) 11% (0-9) Eosinophils (%) (Auto) 2% (0-3) 3% (0-3) Basophils (%) (Auto) 1% (0-3) 1% (0-3) Neutrophils # (Auto) 12.0x10^3uL (1.8-7.7) 8.8x10^3uL (1.8-7.7) Lymphocytes # (Auto) 5.2x10^3/uL (1.0-4.8) 5.0x10^3/uL (1.0-4.8) Monocytes # (Auto) 2.1x10^3/uL (0.0-1.1) 1.8x10^3/uL (0.0-1.1) Eosinophils # (Auto) 0.3x10^3/uL (0.0-0.7) 0.5x10^3/uL (0.0-0.7) Basophils # (Auto) 0.1x10^3/uL (0.0-0.2) 0.1x10^3/uL (0.0-0.2) Segmented Neutrophils % 60% (35-66) Band Neutrophils % 5% (0-9) Lymphocytes % 23% (24-48) Monocytes % 10% (0-10) Eosinophils % 2% (0-5) Platelet Estimate Increased (ADEQUATE) Polychromasia Present Poikilocytosis Marked Anisocytosis Mod Spherocytes Few Sickle Cells Present Target Cells Present [place] Bodies Present Schistocytes Occ Reticulocyte Count (auto) 5.3% (0.5-2.5) Sodium Level 143mmol/L (136-145) 142mmol/L (136-145) Potassium Level 4.2mmol/L (3.5-5.1) 4.1mmol/L (3.5-5.1) Chloride Level 107mmol/L (98-107) 107mmol/L (98-107) Carbon Dioxide Level 26mmol/L (21-32) 24mmol/L (21-32) Anion Gap 10 (6-14) 11 (6-14) Blood Urea Nitrogen 7mg/dL (7-20) 8mg/dL (7-20) Creatinine 0.6mg/dL (0.6-1.0) 0.6mg/dL (0.6-1.0) Estimated GFR (Cockcroft-Gault) 149.9 149.9 Glucose Level 87mg/dL (70-99) 88mg/dL (70-99) Calcium Level 9.0mg/dL (8.5-10.1) 8.8mg/dL (8.5-10.1) Laboratory Tests Test 11/27/16 09:00 White Blood Count 16.2x10^3/uL (4.0-11.0) Red Blood Count 2.08x10^6/uL (3.50-5.40) Hemoglobin 6.9g/dL (12.0-15.5) Hematocrit 19.7% (36.0-47.0) Mean Corpuscular Volume 95fL (79-100) Mean Corpuscular Hemoglobin 33pg (25-35) Mean Corpuscular Hemoglobin Concent 35g/dL (31-37) Red Cell Distribution Width 22.4% (11.5-14.5) Platelet Count 412x10^3/uL (140-400) Neutrophils (%) (Auto) 55% (31-73) Lymphocytes (%) (Auto) 31% (24-48) Monocytes (%) (Auto) 11% (0-9) Eosinophils (%) (Auto) 3% (0-3) Basophils (%) (Auto) 1% (0-3) Neutrophils # (Auto) 8.8x10^3uL (1.8-7.7) Lymphocytes # (Auto) 5.0x10^3/uL (1.0-4.8) Monocytes # (Auto) 1.8x10^3/uL (0.0-1.1) Eosinophils # (Auto) 0.5x10^3/uL (0.0-0.7) Basophils # (Auto) 0.1x10^3/uL (0.0-0.2) Sodium Level 142mmol/L (136-145) Potassium Level 4.1mmol/L (3.5-5.1) Chloride Level 107mmol/L (98-107) Carbon Dioxide Level 24mmol/L (21-32) Anion Gap 11 (6-14) Blood Urea Nitrogen 8mg/dL (7-20) Creatinine 0.6mg/dL (0.6-1.0) Estimated GFR (Cockcroft-Gault) 149.9 Glucose Level 88mg/dL (70-99) Calcium Level 8.8mg/dL (8.5-10.1) Medications Current Medications Hydromorphone HCl 1 mg 1 mg 1X ONCE IV Last administered on 11/23/16 02:18; Start 11/23/16 at 01:45; Stop 11/23/16 at 01:46; Status DC Promethazine HCl 12.5 mg/Sodium Chloride 50.5 ml @ 151.5 mls/ hr PRN Q6HRS PRN IV NAUSEA/VOMITING; Start 11/23/16 at 01:30 Sodium Chloride (Iv Sodium Chloride 0.9% 1000ml Bag) 1,000 ml @ 1,000 mls/hr 1X ONCE IV Last administered on 11/23/16 01:50; Start 11/23/16 at 01:30; Stop 11/23/16 at 02:29; Status DC Promethazine HCl (Phenergan Im) 12.5 mg 1X ONCE IM Last administered on 02:15; Start 11/23/16 at 02:15; Stop 11/23/16 at 02:16; Status DC Hydromorphone HCl (Dilaudid) 1 mg 1X ONCE IV Last administered on 11/23/16 03 :48; Start 11/23/16 at 03:45; Stop 11/23/16 at 03:46; Status DC Ondansetron HCl 4 mg 4 mg PRN Q8HRS PRN IV NAUSEA/VOMITING; Start 11/23/16 at 05:15; Stop 11/24/16 at 05:14; Status DC Sodium Chloride (Iv Sodium Chloride 0.9% 1000ml Bag) 1,000 ml @ 125 mls/hr Q8H IV Last administered on 11/23/16 22:53; Start 11/23/16 at 05:15; Stop at 05:14; Status DC Acetaminophen (Tylenol) 650 mg PRN Q4HRS PRN PO FEVER; Start 11/23/16 at 05:15 ; Stop 11/24/16 at 05:14; Status DC Hydromorphone HCl (Dilaudid) 1 mg Q2H IV Last administered on 11/24/16 08:47; Start 11/23/16 at 05:00; Stop 11/24/16 at 15:06; Status DC Zolpidem Tartrate (Ambien) 5 mg PRN QHS PRN PO sleep Last administered on 20:41; Start 11/23/16 at 19:30; Stop 11/24/16 at 15:12; Status DC Acetaminophen (Tylenol) 325 mg PRN QID PRN PO PAIN; Start 11/23/16 at 22:15 Diphenhydramine HCl (Benadryl) 50 mg PRN Q6HRS PRN PO ANXIETY / AGITATION Last administered on 11/24/16 23:32; Start 11/23/16 at 22:15 Folic Acid (Folic Acid) 1 mg DAILY PO Last administered on 11/27/16 08:48; Start 11/24/16 at 09:00 Hydromorphone HCl (Dilaudid) 4 mg PRN Q4HRS PRN PO PAIN; Start 11/23/16 at 22: 15; Stop 11/24/16 at 15:12; Status DC Hydroxyurea (Hydrea) 1,000 mg DAILY PO Last administered on 11/27/16 08:55; Start 11/24/16 at 09:00 Ibuprofen (Motrin) 200 mg PRN Q6HRS PRN PO INFLAMMATION Last administered on 04:10; Start 11/23/16 at 22:15 Prednisone 20 mg 20 mg DAILY PO Last administered on 11/27/16 08:48; Start at 09:00 Ceftriaxone Sodium 1 gm/ Sodium Chloride 50 ml @ 100 mls/hr Q24H IV Last administered on 11/26/16 23:09; Start 11/23/16 at 22:30 Sodium Chloride 1,000 ml @ 125 mls/hr Q8H IV Last administered on 11/27/16 09 :30; Start 11/24/16 at 09:30 Hydromorphone HCl (Dilaudid Standard STRANDING MACHINE OPERATOR HELPER) 30 ml @ 0 mls/hr CONT PRN PRN IV PROTOCOL Last administered on 11/26/16 11:25; Start 11/24/16 at 09:30; Stop at 14:37; Status DC Zolpidem Tartrate (Ambien) 5 mg PRN QHS PRN PO INSOMNIA Last administered on 20:25; Start 11/24/16 at 12:00; Stop 11/25/16 at 08:23; Status DC Zolpidem Tartrate 5 mg 5 mg PRN QHS PRN PO INSOMNIA, MAY REPEAT IN 1HR Last administered on 11/26/16 23:06; Start 11/25/16 at 08:30 Hydromorphone HCl (Dilaudid Standard STRANDING MACHINE OPERATOR HELPER) 30 ml @ 0 mls/hr CONT PRN PRN IV PROTOCOL Last administered on 11/27/16 12:14; Start 11/26/16 at 14:45 Active Scripts Active Dilaudid (Hydromorphone Hcl) 4 Mg Tablet 1 Tab PO Q4HRS PRN Tylenol (Acetaminophen) 325 Mg Tablet 2 Tab PO QID PRN Benadryl (Diphenhydramine Hcl) 25 Mg Capsule 50 Mg PO Q6HRS PRN Ambien (Zolpidem Tartrate) 5 Mg Tablet 1 Tab PO QHS PRN Prednisone 10 Mg Tablet 10 Mg PO UD Take 3 tablets by mouth daily for 3 days, then take 2 tablets by mouth daily for 3 days, then take 1 tablet by mouth daily for 3 days, then stop. Ibuprofen 200 Mg Tablet 200 Mg PO PRN Q6HRS PRN Folic Acid 1 Mg Tablet 1 Tab PO DAILY Hydroxyurea 500 Mg Capsule 1,000 Mg PO DAILY Vitals/I & O Vital Sign - Last 24 Hours 11/26/16 11/26/16 11/26/16 11/26/16 15:05 19:20 20:00 23:18 Temp 98.1 98.1 98.1 98.1 Pulse 80 81 Resp 18 B/P 108/55 95/52 Pulse Ox 99 97 97 O2 Delivery Room Air Room Air Room Air Room Air 11/26/16 11/26/16 11/27/16 11/27/16 23:47 23:48 03:45 07:00 Temp 97.9 97.9 97.7 97.9 97.9 97.7 Pulse 69 91 77 Resp 16 B/P 110/66 113/77 107/61 Pulse Ox 99 99 99 95 O2 Delivery Room Air Room Air Room Air 11/27/16 11/27/16 11/27/16 11/27/16 08:00 11:00 12:14 12:47 Temp 98.1 98.1 Pulse 77 Resp B/P 96/44 Pulse Ox 100 O2 Delivery Room Air Room Air Room Air Room Air Intake and Output 11/26/16 11/26/16 11/27/16 15:00 23:00 07:00 Intake Total 740 ml 600 ml 800 ml Output Total 2000 ml 2300 ml Balance -1260 ml -1700 ml 800 ml JOHN HEWITT MD Nov 27, 2016 14:07
[2016-11-27 15:00] VITALS: BP 106/59
[2016-11-27 19:51] VITALS: BP 113/62
[2016-11-27] MEDS: ZOLPIDEM 5 MG TABLET. PO PRN ×2 (20:14→20:48)
[2016-11-27] MEDS: CEFTRIAXONE SODIUM 1 GM in IV NORMAL SALINE 50ML 50 ML IV SCH (22:50)
[2016-11-27 23:55] VITALS: BP 124/70
[2016-11-28] MEDS: HYDROMORPHONE STANDARD PCA 30 ML IV PRN ×3 (03:00→20:40)
[2016-11-28 03:28] VITALS: BP 115/61
[2016-11-28] MEDS: IV NORMAL SALINE 1000ML BAG 1,000 ML IV SCH ×5 (06:21→23:00)
[2016-11-28 07:00] VITALS: BP 104/58
[2016-11-28] MEDS: FOLIC ACID 1 MG TABLET PO SCH (08:47)
[2016-11-28] MEDS: PREDNISONE 20 MG TABLET PO SCH (08:47)
[2016-11-28] MEDS: HYDROXYUREA 500 MG CAPSULE PO SCH (08:50)
--- NOTE | 2016-11-28 08:58 | PDOC ---
Subjective: Subjective: Onc f/u- [facility] Pt reports sever pain in RLE. Becomes tearful, anxious but quickly calms with further discussion. (this has happened on previous admits). Discussed review of Dr. Cummins's note- Insurance denying admission. Reiterated that she needs to be managed as outpt and hospitalists are not responsible for giving her refills , which prompts her admission. She states no PCP wants to do her pain meds; agreed and stated that is why she needs to be seen in a pain clinic with her very high chronic needs, see if we can decrease. She voiced understanding. No new issues today. Objective: Vital Signs: Vital Signs Date Time Temp Pulse Resp B/P Pulse Ox O2 Delivery O2 Flow Rate FiO2 11/28/16 08:02 88 16 Room Air 11/28/16 07:00 98.8 104/58 98 98.8 Physical Exam: Heart: Regular rate, Normal S1 Extremities: No edema General: Alert, Oriented X3, Cooperative, No acute distress Lungs: Normal air movement Psych/Mental Status: Mental status NL, Mood NL Labs/Imaging: CBC pending Assessment/Plan A/P: 1. Sickle cell disease with noncompliance with Hydrea and pain medications as an outpatient. - Refuses to establish outpt care, comes to hospital when she runs out of meds. See extended documentation of discussion as above. - Continue hydrea, folic acid. Needs to be on as outpt to control anemia. Refuses to f/u with [facility]/ [facility] systems which includes me. - Hold transfusions until hgb < 6 due to iron overload and development of autoantibodies causing difficulty finding blood and h/o transfusion reactions - On IVF - QOD labs is fine. Her pain historically does not correlate with her hemoglobin. No transfusions needed this admit. - Retic count lower than previous admissions; may trend down further but ok to DC if pain stabilizes as well. 2. Iron overload due to previous transfusions, - Ferritin 1200 - She would not be compliant with outpatient iron chelation therapy. 3. Medical noncompliance. Behavior, not financial. Again encouraged outpt PCP and pain clinic at [facility]. Per Dr. Cummins's note, ins denying this admission. 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 Limit transfusions as able. Would DC when stable. Historically very difficult to control pain even with [facility] for up to 2 weeks. Again encouraged better outpt mgt. Will return Thursday. Dr. Brooks will be covering this weekend if acute issues occur. RADHA ALSTON DO Nov 28, 2016 08:58
[2016-11-28 09:10] LABS: BASO # 0.1 x10^3/uL (0.0-0.2); BASO % 1 % (0-3); EOS % 3 % (0-3); HEMOGLOBIN 7.1 g/dL (12.0-15.5); LYMPH # 5.9 x10^3/uL (1.0-4.8); LYMPH % 31 % (24-48); MEAN CORPUSCULAR HEMOGLOBIN 35 pg (25-35); MEAN CORPUSCULAR HGB CONC 36 g/dL (31-37); MEAN CORPUSCULAR VOLUME 97 fL (79-100); MONO % 12 % (0-9); NEUT % 54 % (31-73); PLATELET COUNT 464 x10^3/uL (140-400); RED BLOOD COUNT 2.07 x10^6/uL (3.50-5.40); WHITE BLOOD COUNT 19.2 x10^3/uL (4.0-11.0)
[2016-11-28 09:14] LABS: HEMATOCRIT 20.5 % (36.0-47.0)
[2016-11-28 09:19] LABS: CALCIUM 8.5 mg/dL (8.5-10.1); CREATININE 0.6 mg/dL (0.6-1.0); GFR 149.9; POTASSIUM 4.1 mmol/L (3.5-5.1)
[2016-11-28 11:00] VITALS: BP 110/62
--- NOTE | 2016-11-28 13:30 | PDOC ---
PROGRESS NOTES Chief Complaint Chief Complaint CC: sickle cell crisis 1. Sickle cell disease, acute pain and disease 2. Chronic pain 3. Narcotic dependence and tolerance 4. Anemia 5. noncompliance meds History of Present Illness History of Present Illness same Remains on MANAGER CALL pump\ BAsed on my experience with her, PO pain meds does not help but she is ok to transition to PO on day of dc, but while here she requires MANAGER CALL Discussed with peer to peer - now agreeable to inpt HGb 7.1 BUT RETIC is 10 (severely increased from 4) HArd stick, lost her gauge 24 PLAN: Ok for MID line Check PT/INT Recheck CBC emily - likely might go anemic bec of high retic ct Monitor retic ct Not ready for dc (very high retic) Transfuse if hgb < 6 Inc IVF to 200cc hr once midline in Dw RN and peer to peer Cont MANAGER CALL dilaudid Vitals Vitals Vital Signs Date Time Temp Pulse Resp B/P Pulse Ox O2 Delivery O2 Flow Rate FiO2 11/28/16 13:09 16 Room Air 11/28/16 11:00 98.5 89 110/62 97 98.5 Physical Exam General: Alert, Oriented X3, Cooperative, No acute distress Heart: Regular rate, Normal S1 Lungs: Clear, Other (No wheezing) Abdomen: Soft, No tenderness Extremities: No edema Skin: No rashes, No breakdown Labs LABS Laboratory Tests Test 11/28/16 08:50 11/28/16 08:58 White Blood Count 19.2x10^3/uL (4.0-11.0) Red Blood Count 2.07x10^6/uL (3.50-5.40) Hemoglobin 7.1g/dL (12.0-15.5) Hematocrit 20.5% (36.0-47.0) Mean Corpuscular Volume 97fL (79-100) Mean Corpuscular Hemoglobin 35pg (25-35) Mean Corpuscular Hemoglobin Concent 36g/dL (31-37) Red Cell Distribution Width 23.0% (11.5-14.5) Platelet Count 464x10^3/uL (140-400) Neutrophils (%) (Auto) 54% (31-73) Lymphocytes (%) (Auto) 31% (24-48) Monocytes (%) (Auto) 12% (0-9) Eosinophils (%) (Auto) 3% (0-3) Basophils (%) (Auto) 1% (0-3) Neutrophils # (Auto) 10.4x10^3uL (1.8-7.7) Lymphocytes # (Auto) 5.9x10^3/uL (1.0-4.8) Monocytes # (Auto) 2.3x10^3/uL (0.0-1.1) Eosinophils # (Auto) 0.5x10^3/uL (0.0-0.7) Basophils # (Auto) 0.1x10^3/uL (0.0-0.2) Reticulocyte Count (auto) 10.4% (0.5-2.5) Sodium Level 141mmol/L (136-145) Potassium Level 4.1mmol/L (3.5-5.1) Chloride Level 107mmol/L (98-107) Carbon Dioxide Level 25mmol/L (21-32) Anion Gap 9 (6-14) Blood Urea Nitrogen 10mg/dL (7-20) Creatinine 0.6mg/dL (0.6-1.0) Estimated GFR (Cockcroft-Gault) 149.9 Glucose Level 92mg/dL (70-99) Calcium Level 8.5mg/dL (8.5-10.1) Review of Systems Review of Systems arthralgias, intermitttent cp, no nausea, emesis, abd pain Assessment and Plan Assessmemt and Plan Problems Medical Problems: (1) Sickle cell pain crisis Status: Acute Problems: Comment Review of Relevant I have reviewed the following items chris (where applicable) has been applied. Labs Laboratory Tests Test 11/27/16 09:00 11/28/16 08:50 11/28/16 08:58 White Blood Count 16.2x10^3/uL (4.0-11.0) 19.2x10^3/uL (4.0-11.0) Red Blood Count 2.08x10^6/uL (3.50-5.40) 2.07x10^6/uL (3.50-5.40) Hemoglobin 6.9g/dL (12.0-15.5) 7.1g/dL (12.0-15.5) Hematocrit 19.7% (36.0-47.0) 20.5% (36.0-47.0) Mean Corpuscular Volume 95fL (79-100) 97fL (79-100) Mean Corpuscular Hemoglobin 33pg (25-35) 35pg (25-35) Mean Corpuscular Hemoglobin Concent 35g/dL (31-37) 36g/dL (31-37) Red Cell Distribution Width 22.4% (11.5-14.5) 23.0% (11.5-14.5) Platelet Count 412x10^3/uL (140-400) 464x10^3/uL (140-400) Neutrophils (%) (Auto) 55% (31-73) 54% (31-73) Lymphocytes (%) (Auto) 31% (24-48) 31% (24-48) Monocytes (%) (Auto) 11% (0-9) 12% (0-9) Eosinophils (%) (Auto) 3% (0-3) 3% (0-3) Basophils (%) (Auto) 1% (0-3) 1% (0-3) Neutrophils # (Auto) 8.8x10^3uL (1.8-7.7) 10.4x10^3uL (1.8-7.7) Lymphocytes # (Auto) 5.0x10^3/uL (1.0-4.8) 5.9x10^3/uL (1.0-4.8) Monocytes # (Auto) 1.8x10^3/uL (0.0-1.1) 2.3x10^3/uL (0.0-1.1) Eosinophils # (Auto) 0.5x10^3/uL (0.0-0.7) 0.5x10^3/uL (0.0-0.7) Basophils # (Auto) 0.1x10^3/uL (0.0-0.2) 0.1x10^3/uL (0.0-0.2) Sodium Level 142mmol/L (136-145) 141mmol/L (136-145) Potassium Level 4.1mmol/L (3.5-5.1) 4.1mmol/L (3.5-5.1) Chloride Level 107mmol/L (98-107) 107mmol/L (98-107) Carbon Dioxide Level 24mmol/L (21-32) 25mmol/L (21-32) Anion Gap 11 (6-14) 9 (6-14) Blood Urea Nitrogen 8mg/dL (7-20) 10mg/dL (7-20) Creatinine 0.6mg/dL (0.6-1.0) 0.6mg/dL (0.6-1.0) Estimated GFR (Cockcroft-Gault) 149.9 149.9 Glucose Level 88mg/dL (70-99) 92mg/dL (70-99) Calcium Level 8.8mg/dL (8.5-10.1) 8.5mg/dL (8.5-10.1) Reticulocyte Count (auto) 10.4% (0.5-2.5) Laboratory Tests Test 11/28/16 08:50 11/28/16 08:58 White Blood Count 19.2x10^3/uL (4.0-11.0) Red Blood Count 2.07x10^6/uL (3.50-5.40) Hemoglobin 7.1g/dL (12.0-15.5) Hematocrit 20.5% (36.0-47.0) Mean Corpuscular Volume 97fL (79-100) Mean Corpuscular Hemoglobin 35pg (25-35) Mean Corpuscular Hemoglobin Concent 36g/dL (31-37) Red Cell Distribution Width 23.0% (11.5-14.5) Platelet Count 464x10^3/uL (140-400) Neutrophils (%) (Auto) 54% (31-73) Lymphocytes (%) (Auto) 31% (24-48) Monocytes (%) (Auto) 12% (0-9) Eosinophils (%) (Auto) 3% (0-3) Basophils (%) (Auto) 1% (0-3) Neutrophils # (Auto) 10.4x10^3uL (1.8-7.7) Lymphocytes # (Auto) 5.9x10^3/uL (1.0-4.8) Monocytes # (Auto) 2.3x10^3/uL (0.0-1.1) Eosinophils # (Auto) 0.5x10^3/uL (0.0-0.7) Basophils # (Auto) 0.1x10^3/uL (0.0-0.2) Reticulocyte Count (auto) 10.4% (0.5-2.5) Sodium Level 141mmol/L (136-145) Potassium Level 4.1mmol/L (3.5-5.1) Chloride Level 107mmol/L (98-107) Carbon Dioxide Level 25mmol/L (21-32) Anion Gap 9 (6-14) Blood Urea Nitrogen 10mg/dL (7-20) Creatinine 0.6mg/dL (0.6-1.0) Estimated GFR (Cockcroft-Gault) 149.9 Glucose Level 92mg/dL (70-99) Calcium Level 8.5mg/dL (8.5-10.1) Medications Current Medications Hydromorphone HCl 1 mg 1 mg 1X ONCE IV Last administered on 11/23/16 02:18; Start 11/23/16 at 01:45; Stop 11/23/16 at 01:46; Status DC Promethazine HCl 12.5 mg/Sodium Chloride 50.5 ml @ 151.5 mls/ hr PRN Q6HRS PRN IV NAUSEA/VOMITING; Start 11/23/16 at 01:30 Sodium Chloride (Iv Sodium Chloride 0.9% 1000ml Bag) 1,000 ml @ 1,000 mls/hr 1X ONCE IV Last administered on 11/23/16 01:50; Start 11/23/16 at 01:30; Stop 11/23/16 at 02:29; Status DC Promethazine HCl (Phenergan Im) 12.5 mg 1X ONCE IM Last administered on 02:15; Start 11/23/16 at 02:15; Stop 11/23/16 at 02:16; Status DC Hydromorphone HCl (Dilaudid) 1 mg 1X ONCE IV Last administered on 11/23/16 03 :48; Start 11/23/16 at 03:45; Stop 11/23/16 at 03:46; Status DC Ondansetron HCl 4 mg 4 mg PRN Q8HRS PRN IV NAUSEA/VOMITING; Start 11/23/16 at 05:15; Stop 11/24/16 at 05:14; Status DC Sodium Chloride (Iv Sodium Chloride 0.9% 1000ml Bag) 1,000 ml @ 125 mls/hr Q8H IV Last administered on 11/23/16 22:53; Start 11/23/16 at 05:15; Stop at 05:14; Status DC Acetaminophen (Tylenol) 650 mg PRN Q4HRS PRN PO FEVER; Start 11/23/16 at 05:15 ; Stop 11/24/16 at 05:14; Status DC Hydromorphone HCl (Dilaudid) 1 mg Q2H IV Last administered on 11/24/16 08:47; Start 11/23/16 at 05:00; Stop 11/24/16 at 15:06; Status DC Zolpidem Tartrate (Ambien) 5 mg PRN QHS PRN PO sleep Last administered on 20:41; Start 11/23/16 at 19:30; Stop 11/24/16 at 15:12; Status DC Acetaminophen (Tylenol) 325 mg PRN QID PRN PO PAIN; Start 11/23/16 at 22:15 Diphenhydramine HCl (Benadryl) 50 mg PRN Q6HRS PRN PO ANXIETY / AGITATION Last administered on 11/24/16 23:32; Start 11/23/16 at 22:15 Folic Acid (Folic Acid) 1 mg DAILY PO Last administered on 11/28/16 08:47; Start 11/24/16 at 09:00 Hydromorphone HCl (Dilaudid) 4 mg PRN Q4HRS PRN PO PAIN; Start 11/23/16 at 22: 15; Stop 11/24/16 at 15:12; Status DC Hydroxyurea (Hydrea) 1,000 mg DAILY PO Last administered on 11/28/16 08:50; Start 11/24/16 at 09:00 Ibuprofen (Motrin) 200 mg PRN Q6HRS PRN PO INFLAMMATION Last administered on 04:10; Start 11/23/16 at 22:15 Prednisone 20 mg 20 mg DAILY PO Last administered on 11/28/16 08:47; Start at 09:00 Ceftriaxone Sodium 1 gm/ Sodium Chloride 50 ml @ 100 mls/hr Q24H IV Last administered on 11/27/16 22:50; Start 11/23/16 at 22:30 Sodium Chloride 1,000 ml @ 125 mls/hr Q8H IV Last administered on 11/28/16 08 :51; Start 11/24/16 at 09:30; Stop 11/28/16 at 12:53; Status DC Hydromorphone HCl (Dilaudid Standard MANAGER CALL) 30 ml @ 0 mls/hr CONT PRN PRN IV PROTOCOL Last administered on 11/26/16 11:25; Start 11/24/16 at 09:30; Stop at 14:37; Status DC Zolpidem Tartrate (Ambien) 5 mg PRN QHS PRN PO INSOMNIA Last administered on 20:25; Start 11/24/16 at 12:00; Stop 11/25/16 at 08:23; Status DC Zolpidem Tartrate 5 mg 5 mg PRN QHS PRN PO INSOMNIA, MAY REPEAT IN 1HR Last administered on 11/27/16 20:48; Start 11/25/16 at 08:30 Hydromorphone HCl 30 ml @ 0 mls/hr CONT PRN PRN IV PROTOCOL Last administered on 11/28/16 12:22; Start 11/26/16 at 14:45 Sodium Chloride (Iv Sodium Chloride 0.9% 1000ml Bag) 1,000 ml @ 200 mls/hr Q5H IV ; Start 11/28/16 at 13:00 Active Scripts Active Dilaudid (Hydromorphone Hcl) 4 Mg Tablet 1 Tab PO Q4HRS PRN Tylenol (Acetaminophen) 325 Mg Tablet 2 Tab PO QID PRN Benadryl (Diphenhydramine Hcl) 25 Mg Capsule 50 Mg PO Q6HRS PRN Ambien (Zolpidem Tartrate) 5 Mg Tablet 1 Tab PO QHS PRN Prednisone 10 Mg Tablet 10 Mg PO UD Take 3 tablets by mouth daily for 3 days, then take 2 tablets by mouth daily for 3 days, then take 1 tablet by mouth daily for 3 days, then stop. Ibuprofen 200 Mg Tablet 200 Mg PO PRN Q6HRS PRN Folic Acid 1 Mg Tablet 1 Tab PO DAILY Hydroxyurea 500 Mg Capsule 1,000 Mg PO DAILY Vitals/I & O Vital Sign - Last 24 Hours 11/27/16 11/27/16 11/27/16 11/27/16 15:00 19:51 20:00 23:55 Temp 97.9 98.1 99.3 97.9 98.1 99.3 Pulse 88 71 75 Resp 18 B/P 106/59 113/62 124/70 Pulse Ox 96 97 97 O2 Delivery Room Air Room Air Room Air Room Air 11/28/16 11/28/16 11/28/16 11/28/16 03:00 03:28 03:30 07:00 Temp 98.2 98.8 98.2 98.8 Pulse 83 91 Resp 18 B/P 115/61 104/58 Pulse Ox 97 95 95 98 O2 Delivery Room Air Room Air Room Air 11/28/16 11/28/16 11/28/16 11/28/16 07:51 08:02 11:00 12:22 Temp 98.5 98.5 Pulse 88 89 Resp 16 B/P 110/62 Pulse Ox 97 O2 Delivery Room Air Room Air Room Air Room Air 11/28/16 13:09 Resp 16 O2 Delivery Room Air Intake and Output 11/27/16 11/27/16 11/28/16 15:00 23:00 07:00 Intake Total 300 ml 1200 ml 1180 ml Output Total 1200 ml 2400 ml Balance 300 ml 0 ml -1220 ml JOHN HEWITT MD Nov 28, 2016 13:30
[2016-11-28] MEDS ORDERED: LIDOCAINE 1% / SOD BICARB 8.4% 20 ML VIAL. IJ ONE ×2 (13:57→15:00)
--- NOTE | 2016-11-28 14:50 | PDOC ---
Exam Power Line Lineman Power Line Lineman Umang Roller Print Tender Roller Print Tender F Ndumbu Pre-Procedure Diagnosis Pre-Procedure Diagnosis 21 YO female with Sickle Cell crisis. Picc requested for IVFs, IV analgesia, and IV Abx. Post-Procedure Diagnosis Post-Procedure Diagnosis Same Procedure Performed Procedure Performed Sono/fluoro guided Power Picc insertion Type of Anesthesia Type of Anesthesia Local Estimated Blood Loss EBL: Minimal Drain/Tubes Drains/Tubes Right brachial vein 5F 2L 39cm Power Picc Condition of Patient Condition of Patient Stable. No apparent complication. Disposition Disposition From to [facility]. OK to use Power Picc. Full report to follow. CHELE NGUYEN MD Nov 28, 2016 14:50
--- NOTE | 2016-11-28 15:10 | RAD ---
Ultrasound and fluoro guided power PICC placement Indication: 21-year-old female with recurrent sickle cell crisis. PICC insertion has been requested for IV antibiotics, hydration, and analgesics. Fluoro time: 0.3 minutes Kerma-Area Product: 0.3 Gycm2 Anesthesia: Local only Sterility: All elements of maximal sterile barrier technique were utilized, including cap, mask, sterile gown, sterile gloves, large sterile sheet, appropriate hand hygiene, and 2% chlorhexidine for cutaneous antisepsis Procedure: Informed consent was obtained from the patient. She was placed supine on the angiography table. Preliminary ultrasound examination of right upper arm revealed wide patency of right brachial vein, which was documented with a hard copy ultrasound image. Right upper arm was then prepped and draped in the usual sterile fashion, utilizing all elements of maximal sterile barrier technique, as described above. Using aseptic technique, local anesthesia, direct ultrasound guidance, and the micropuncture system, successful percutaneous entry was achieved into right brachial vein at the level of distal humerus. A 5 [place]ian dual lumen power PICC was trimmed to 39 cm in length, was inserted through a 5 [place]ian peel-away sheath, and was easily advanced centrally under fluoroscopic control. Tip of the power PICC was positioned at upper right atrium. This was documented with a single fluoroscopic spot image. The PICC was then demonstrated to flush and aspirate normally, and was secured at the skin exit site utilizing suture and sterile dressing. The patient tolerated the procedure well without apparent complication. Impression: Successful, uneventful ultrasound and fluoro guided placement of right brachial vein 5 [place]ian dual-lumen 39 cm power PICC, as described.
[2016-11-28 19:40] VITALS: BP 117/54
[2016-11-28] MEDS: ZOLPIDEM 5 MG TABLET. PO PRN ×2 (20:39→21:36)
[2016-11-28] MEDS: CEFTRIAXONE SODIUM 1 GM in IV NORMAL SALINE 50ML 50 ML IV SCH (21:37)
[2016-11-28 23:48] VITALS: BP 123/69
[2016-11-29] MEDS: IV NORMAL SALINE 1000ML BAG 1,000 ML IV SCH ×4 (04:35→21:35)
[2016-11-29] MEDS: HYDROMORPHONE STANDARD PCA 30 ML IV PRN ×3 (04:45→21:32)
[2016-11-29 06:57] LABS: BASO # 0.1 x10^3/uL (0.0-0.2); BASO % 1 % (0-3); EOS % 3 % (0-3); LYMPH # 5.3 x10^3/uL (1.0-4.8); LYMPH % 29 % (24-48); MEAN CORPUSCULAR HEMOGLOBIN 34 pg (25-35); MEAN CORPUSCULAR HGB CONC 35 g/dL (31-37); MEAN CORPUSCULAR VOLUME 99 fL (79-100); MONO % 11 % (0-9); NEUT % 56 % (31-73); PLATELET COUNT 395 x10^3/uL (140-400); RED BLOOD COUNT 1.86 x10^6/uL (3.50-5.40); RED CELL DISTRIBUTION WIDTH 23.5 % (11.5-14.5)
[2016-11-29 07:00] VITALS: BP 112/57
[2016-11-29 07:01] LABS: HEMATOCRIT 18.4 % (36.0-47.0); HEMOGLOBIN 6.4 g/dL (12.0-15.5)
[2016-11-29 07:09] LABS: CALCIUM 8.7 mg/dL (8.5-10.1); CREATININE 0.5 mg/dL (0.6-1.0); POTASSIUM 4.2 mmol/L (3.5-5.1)
[2016-11-29] MEDS: PREDNISONE 20 MG TABLET PO SCH (10:17)
[2016-11-29] MEDS: FOLIC ACID 1 MG TABLET PO SCH (10:17)
[2016-11-29] MEDS: HYDROXYUREA 500 MG CAPSULE PO SCH (10:35)
[2016-11-29 11:51] VITALS: BP 109/72
--- NOTE | 2016-11-29 14:46 | PDOC ---
PROGRESS NOTES Chief Complaint Chief Complaint CC: sickle cell crisis 1. Sickle cell disease, acute pain and disease 2. Chronic pain 3. Narcotic dependence and tolerance 4. Anemia 5. noncompliance meds History of Present Illness History of Present Illness hgb 6,4 Slightly sleepy today DId not touch lunch BUt she perks up and says food is not appetizing REtic ct even higher today 12 PLAn: TRansfsue only if Hgb < 6 (high ferritin already) RETic ct and Hh again emily MIght consider dec dilaudid assurance officer to half -- but that was the case earklier this week and they had to double the dose Now has a R MId line - no swelling, no pain STay necessitates IV dilaudid WEB GRAPHIC DESIGNER still Vitals Vitals Vital Signs Date Time Temp Pulse Resp B/P Pulse Ox O2 Delivery O2 Flow Rate FiO2 11/29/16 12:57 18 95 Room Air 11/29/16 11:51 98.2 80 109/72 98.2 Physical Exam General: Alert, Oriented X3, Cooperative, No acute distress Heart: Regular rate, Normal S1 Lungs: Clear, Other (No wheezing) Abdomen: Soft, No tenderness Extremities: No edema Skin: No rashes, No breakdown Labs LABS Laboratory Tests Test 11/29/16 06:20 White Blood Count 18.0x10^3/uL (4.0-11.0) Red Blood Count 1.86x10^6/uL (3.50-5.40) Hemoglobin 6.4g/dL (12.0-15.5) Hematocrit 18.4% (36.0-47.0) Mean Corpuscular Volume 99fL (79-100) Mean Corpuscular Hemoglobin 34pg (25-35) Mean Corpuscular Hemoglobin Concent 35g/dL (31-37) Red Cell Distribution Width 23.5% (11.5-14.5) Platelet Count 395x10^3/uL (140-400) Neutrophils (%) (Auto) 56% (31-73) Lymphocytes (%) (Auto) 29% (24-48) Monocytes (%) (Auto) 11% (0-9) Eosinophils (%) (Auto) 3% (0-3) Basophils (%) (Auto) 1% (0-3) Neutrophils # (Auto) 10.1x10^3uL (1.8-7.7) Lymphocytes # (Auto) 5.3x10^3/uL (1.0-4.8) Monocytes # (Auto) 2.0x10^3/uL (0.0-1.1) Eosinophils # (Auto) 0.5x10^3/uL (0.0-0.7) Basophils # (Auto) 0.1x10^3/uL (0.0-0.2) Reticulocyte Count (auto) 12.1% (0.5-2.5) Sodium Level 140mmol/L (136-145) Potassium Level 4.2mmol/L (3.5-5.1) Chloride Level 107mmol/L (98-107) Carbon Dioxide Level 24mmol/L (21-32) Anion Gap 9 (6-14) Blood Urea Nitrogen 6mg/dL (7-20) Creatinine 0.5mg/dL (0.6-1.0) Estimated GFR (Cockcroft-Gault) 185.0 Glucose Level 86mg/dL (70-99) Calcium Level 8.7mg/dL (8.5-10.1) Review of Systems Review of Systems legs hurt - has the legs elevated on bed than her head Assessment and Plan Assessmemt and Plan Problems Medical Problems: (1) Sickle cell pain crisis Status: Acute Problems: Comment Review of Relevant I have reviewed the following items chris (where applicable) has been applied. Labs Laboratory Tests Test 11/28/16 08:50 11/28/16 08:58 11/29/16 06:20 White Blood Count 19.2x10^3/uL (4.0-11.0) 18.0x10^3/uL (4.0-11.0) Red Blood Count 2.07x10^6/uL (3.50-5.40) 1.86x10^6/uL (3.50-5.40) Hemoglobin 7.1g/dL (12.0-15.5) 6.4g/dL (12.0-15.5) Hematocrit 20.5% (36.0-47.0) 18.4% (36.0-47.0) Mean Corpuscular Volume 97fL (79-100) 99fL (79-100) Mean Corpuscular Hemoglobin 35pg (25-35) 34pg (25-35) Mean Corpuscular Hemoglobin Concent 36g/dL (31-37) 35g/dL (31-37) Red Cell Distribution Width 23.0% (11.5-14.5) 23.5% (11.5-14.5) Platelet Count 464x10^3/uL (140-400) 395x10^3/uL (140-400) Neutrophils (%) (Auto) 54% (31-73) 56% (31-73) Lymphocytes (%) (Auto) 31% (24-48) 29% (24-48) Monocytes (%) (Auto) 12% (0-9) 11% (0-9) Eosinophils (%) (Auto) 3% (0-3) 3% (0-3) Basophils (%) (Auto) 1% (0-3) 1% (0-3) Neutrophils # (Auto) 10.4x10^3uL (1.8-7.7) 10.1x10^3uL (1.8-7.7) Lymphocytes # (Auto) 5.9x10^3/uL (1.0-4.8) 5.3x10^3/uL (1.0-4.8) Monocytes # (Auto) 2.3x10^3/uL (0.0-1.1) 2.0x10^3/uL (0.0-1.1) Eosinophils # (Auto) 0.5x10^3/uL (0.0-0.7) 0.5x10^3/uL (0.0-0.7) Basophils # (Auto) 0.1x10^3/uL (0.0-0.2) 0.1x10^3/uL (0.0-0.2) Reticulocyte Count (auto) 10.4% (0.5-2.5) 12.1% (0.5-2.5) Sodium Level 141mmol/L (136-145) 140mmol/L (136-145) Potassium Level 4.1mmol/L (3.5-5.1) 4.2mmol/L (3.5-5.1) Chloride Level 107mmol/L (98-107) 107mmol/L (98-107) Carbon Dioxide Level 25mmol/L (21-32) 24mmol/L (21-32) Anion Gap 9 (6-14) 9 (6-14) Blood Urea Nitrogen 10mg/dL (7-20) 6mg/dL (7-20) Creatinine 0.6mg/dL (0.6-1.0) 0.5mg/dL (0.6-1.0) Estimated GFR (Cockcroft-Gault) 149.9 185.0 Glucose Level 92mg/dL (70-99) 86mg/dL (70-99) Calcium Level 8.5mg/dL (8.5-10.1) 8.7mg/dL (8.5-10.1) Laboratory Tests Test 11/29/16 06:20 White Blood Count 18.0x10^3/uL (4.0-11.0) Red Blood Count 1.86x10^6/uL (3.50-5.40) Hemoglobin 6.4g/dL (12.0-15.5) Hematocrit 18.4% (36.0-47.0) Mean Corpuscular Volume 99fL (79-100) Mean Corpuscular Hemoglobin 34pg (25-35) Mean Corpuscular Hemoglobin Concent 35g/dL (31-37) Red Cell Distribution Width 23.5% (11.5-14.5) Platelet Count 395x10^3/uL (140-400) Neutrophils (%) (Auto) 56% (31-73) Lymphocytes (%) (Auto) 29% (24-48) Monocytes (%) (Auto) 11% (0-9) Eosinophils (%) (Auto) 3% (0-3) Basophils (%) (Auto) 1% (0-3) Neutrophils # (Auto) 10.1x10^3uL (1.8-7.7) Lymphocytes # (Auto) 5.3x10^3/uL (1.0-4.8) Monocytes # (Auto) 2.0x10^3/uL (0.0-1.1) Eosinophils # (Auto) 0.5x10^3/uL (0.0-0.7) Basophils # (Auto) 0.1x10^3/uL (0.0-0.2) Reticulocyte Count (auto) 12.1% (0.5-2.5) Sodium Level 140mmol/L (136-145) Potassium Level 4.2mmol/L (3.5-5.1) Chloride Level 107mmol/L (98-107) Carbon Dioxide Level 24mmol/L (21-32) Anion Gap 9 (6-14) Blood Urea Nitrogen 6mg/dL (7-20) Creatinine 0.5mg/dL (0.6-1.0) Estimated GFR (Cockcroft-Gault) 185.0 Glucose Level 86mg/dL (70-99) Calcium Level 8.7mg/dL (8.5-10.1) Medications Current Medications Hydromorphone HCl 1 mg 1 mg 1X ONCE IV Last administered on 11/23/16 02:18; Start 11/23/16 at 01:45; Stop 11/23/16 at 01:46; Status DC Promethazine HCl 12.5 mg/Sodium Chloride 50.5 ml @ 151.5 mls/ hr PRN Q6HRS PRN IV NAUSEA/VOMITING; Start 11/23/16 at 01:30 Sodium Chloride (Iv Sodium Chloride 0.9% 1000ml Bag) 1,000 ml @ 1,000 mls/hr 1X ONCE IV Last administered on 11/23/16 01:50; Start 11/23/16 at 01:30; Stop 11/23/16 at 02:29; Status DC Promethazine HCl (Phenergan Im) 12.5 mg 1X ONCE IM Last administered on 02:15; Start 11/23/16 at 02:15; Stop 11/23/16 at 02:16; Status DC Hydromorphone HCl (Dilaudid) 1 mg 1X ONCE IV Last administered on 11/23/16 03 :48; Start 11/23/16 at 03:45; Stop 11/23/16 at 03:46; Status DC Ondansetron HCl 4 mg 4 mg PRN Q8HRS PRN IV NAUSEA/VOMITING; Start 11/23/16 at 05:15; Stop 11/24/16 at 05:14; Status DC Sodium Chloride (Iv Sodium Chloride 0.9% 1000ml Bag) 1,000 ml @ 125 mls/hr Q8H IV Last administered on 11/23/16 22:53; Start 11/23/16 at 05:15; Stop at 05:14; Status DC Acetaminophen (Tylenol) 650 mg PRN Q4HRS PRN PO FEVER; Start 11/23/16 at 05:15 ; Stop 11/24/16 at 05:14; Status DC Hydromorphone HCl (Dilaudid) 1 mg Q2H IV Last administered on 11/24/16 08:47; Start 11/23/16 at 05:00; Stop 11/24/16 at 15:06; Status DC Zolpidem Tartrate (Ambien) 5 mg PRN QHS PRN PO sleep Last administered on 20:41; Start 11/23/16 at 19:30; Stop 11/24/16 at 15:12; Status DC Acetaminophen (Tylenol) 325 mg PRN QID PRN PO PAIN; Start 11/23/16 at 22:15 Diphenhydramine HCl (Benadryl) 50 mg PRN Q6HRS PRN PO ANXIETY / AGITATION Last administered on 11/24/16 23:32; Start 11/23/16 at 22:15 Folic Acid (Folic Acid) 1 mg DAILY PO Last administered on 11/29/16 10:17; Start 11/24/16 at 09:00 Hydromorphone HCl (Dilaudid) 4 mg PRN Q4HRS PRN PO PAIN; Start 11/23/16 at 22: 15; Stop 11/24/16 at 15:12; Status DC Hydroxyurea (Hydrea) 1,000 mg DAILY PO Last administered on 11/29/16 10:35; Start 11/24/16 at 09:00 Ibuprofen (Motrin) 200 mg PRN Q6HRS PRN PO INFLAMMATION Last administered on 04:10; Start 11/23/16 at 22:15 Prednisone 20 mg 20 mg DAILY PO Last administered on 11/29/16 10:17; Start at 09:00 Ceftriaxone Sodium 1 gm/ Sodium Chloride 50 ml @ 100 mls/hr Q24H IV Last administered on 11/28/16 21:37; Start 11/23/16 at 22:30 Sodium Chloride 1,000 ml @ 125 mls/hr Q8H IV Last administered on 11/28/16 08 :51; Start 11/24/16 at 09:30; Stop 11/28/16 at 12:53; Status DC Hydromorphone HCl (Dilaudid Standard WEB GRAPHIC DESIGNER) 30 ml @ 0 mls/hr CONT PRN PRN IV PROTOCOL Last administered on 11/26/16 11:25; Start 11/24/16 at 09:30; Stop at 14:37; Status DC Zolpidem Tartrate (Ambien) 5 mg PRN QHS PRN PO INSOMNIA Last administered on 20:25; Start 11/24/16 at 12:00; Stop 11/25/16 at 08:23; Status DC Zolpidem Tartrate 5 mg 5 mg PRN QHS PRN PO INSOMNIA, MAY REPEAT IN 1HR Last administered on 11/28/16 21:36; Start 11/25/16 at 08:30 Hydromorphone HCl 30 ml @ 0 mls/hr CONT PRN PRN IV PROTOCOL Last administered on 11/29/16 12:27; Start 11/26/16 at 14:45 Sodium Chloride (Iv Sodium Chloride 0.9% 1000ml Bag) 1,000 ml @ 200 mls/hr Q5H IV Last administered on 11/29/16 10:16; Start 11/28/16 at 13:00 Lidocaine/Sodium Bicarbonate 20 ml 20 ml STK-MED ONCE IJ ; Start 11/28/16 at 13: 57; Stop 11/28/16 at 13:58; Status DC Heparin Sodium/ Sodium Chloride 500 ml @ As Directed STK-MED ONCE .ROUTE ; Start 11/28/16 at 14:00; Stop 11/28/16 at 14:01; Status DC Lidocaine/Sodium Bicarbonate (Buffered Lidocaine 1%) 3 ml 1X ONCE IJ Last administered on 11/28/16 14:55; Start 11/28/16 at 15:00; Stop 11/28/16 at 15:01 ; Status DC Heparin Sodium/ Sodium Chloride 60 unit 1X ONCE IV Last administered on 14:55; Start 11/28/16 at 15:00; Stop 11/28/16 at 15:01; Status DC Active Scripts Active Dilaudid (Hydromorphone Hcl) 4 Mg Tablet 1 Tab PO Q4HRS PRN Tylenol (Acetaminophen) 325 Mg Tablet 2 Tab PO QID PRN Benadryl (Diphenhydramine Hcl) 25 Mg Capsule 50 Mg PO Q6HRS PRN Ambien (Zolpidem Tartrate) 5 Mg Tablet 1 Tab PO QHS PRN Prednisone 10 Mg Tablet 10 Mg PO UD Take 3 tablets by mouth daily for 3 days, then take 2 tablets by mouth daily for 3 days, then take 1 tablet by mouth daily for 3 days, then stop. Ibuprofen 200 Mg Tablet 200 Mg PO PRN Q6HRS PRN Folic Acid 1 Mg Tablet 1 Tab PO DAILY Hydroxyurea 500 Mg Capsule 1,000 Mg PO DAILY Vitals/I & O Vital Sign - Last 24 Hours 11/28/16 11/28/16 11/28/16 11/28/16 19:40 20:00 20:40 23:48 Temp 97.7 97.5 97.7 97.5 Pulse 78 68 Resp 16 18 16 B/P 117/54 123/69 Pulse Ox 95 95 96 O2 Delivery Room Air Room Air Room Air Room Air 11/29/16 11/29/16 11/29/16 11/29/16 02:53 04:45 07:00 08:00 Temp 98.1 98.1 Pulse 74 Resp 16 B/P 112/57 Pulse Ox 96 95 O2 Delivery Room Air Room Air Room Air Room Air 11/29/16 11/29/16 11/29/16 11:51 12:27 12:57 Temp 98.2 98.2 Pulse 80 Resp 16 18 18 B/P 109/72 Pulse Ox 95 95 O2 Delivery Room Air Room Air Room Air Intake and Output 11/28/16 11/28/16 11/29/16 15:00 23:00 07:00 Intake Total 350 ml 710 ml Output Total 800 ml 4700 ml Balance -450 ml -3990 ml JOHN HWEITT MD Nov 29, 2016 14:46
[2016-11-29 15:00] VITALS: BP 105/64
[2016-11-29 19:20] VITALS: BP 117/68
[2016-11-29] MEDS: ZOLPIDEM 5 MG TABLET. PO PRN ×2 (20:08→21:01)
[2016-11-29 23:25] VITALS: BP 110/70
[2016-11-30] VITALS (11 sets, daily range): BP systolic 106–127; BP diastolic 56–75
[2016-11-30] MEDS: DIPHENHYDRAMINE HCL 25 MG CAPSULE PO PRN ×2 (00:08→23:16)
[2016-11-30 06:54] LABS: BASO # 0.1 x10^3/uL (0.0-0.2); BASO % 1 % (0-3); EOS % 3 % (0-3); LYMPH # 4.2 x10^3/uL (1.0-4.8); LYMPH % 28 % (24-48); MEAN CORPUSCULAR HEMOGLOBIN 35 pg (25-35); MEAN CORPUSCULAR HGB CONC 35 g/dL (31-37); MEAN CORPUSCULAR VOLUME 101 fL (79-100); MONO % 13 % (0-9); NEUT % 55 % (31-73); PLATELET COUNT 377 x10^3/uL (140-400); RED BLOOD COUNT 1.81 x10^6/uL (3.50-5.40); RED CELL DISTRIBUTION WIDTH 25.4 % (11.5-14.5); WHITE BLOOD COUNT 14.9 x10^3/uL (4.0-11.0)
[2016-11-30 06:57] LABS: HEMATOCRIT 18.2 % (36.0-47.0); HEMOGLOBIN 6.3 g/dL (12.0-15.5)
[2016-11-30 07:14] LABS: CALCIUM 8.7 mg/dL (8.5-10.1); CREATININE 0.5 mg/dL (0.6-1.0); POTASSIUM 4.2 mmol/L (3.5-5.1)
[2016-11-30] MEDS: IV NORMAL SALINE 1000ML BAG 1,000 ML IV SCH ×5 (08:59→23:59)
[2016-11-30] MEDS: FOLIC ACID 1 MG TABLET PO SCH (09:03)
[2016-11-30] MEDS: PREDNISONE 20 MG TABLET PO SCH (09:03)
[2016-11-30] MEDS: HYDROXYUREA 500 MG CAPSULE PO SCH (09:07)
[2016-11-30] MEDS: HYDROMORPHONE STANDARD PCA 30 ML IV PRN ×2 (09:07→23:21)
[2016-11-30] MEDS ORDERED: MAGNESIUM HYDROXIDE 2,400 MG/30 ML ORAL.SUSP. PO PRN (10:00)
[2016-11-30] MEDS: DOCUSATE SODIUM 100 MG CAPSULE PO SCH (10:56)
[2016-11-30] MEDS: POLYETHYLENE GLYCOL 3350 17 GM PACKET. PO SCH (10:56)
--- NOTE | 2016-11-30 11:24 | PDOC ---
PROGRESS NOTES Chief Complaint Chief Complaint 1. Sickle cell disease, acute pain and disease 2. Chronic pain 3. Narcotic dependence and tolerance 4. Anemia 5. noncompliance meds History of Present Illness History of Present Illness Hgb lower today at 6.[address] higher today at 14 200cc /hr IVF running Legs elevated bec of pain LAst BM 4 days ago PLAn: in the light of further dec hgb and inc retic, despite high ferritin levels, will transfuse 1 pRBC HH and retic ct again emily, Cont IVF at 200 and NURSES EDUCATOR dilaudid Add bowel regimen Dw RN and pt Vitals Vitals Vital Signs Date Time Temp Pulse Resp B/P Pulse Ox O2 Delivery O2 Flow Rate FiO2 11/30/16 11:21 98.0 78 18 119/69 98 Room Air 98.0 Physical Exam General: Alert, Oriented X3, Cooperative, No acute distress Heart: Regular rate, Normal S1 Lungs: Clear, Other (No wheezing) Abdomen: Soft, No tenderness Extremities: No edema Skin: No rashes, No breakdown Labs LABS Laboratory Tests Test 11/30/16 06:30 White Blood Count 14.9x10^3/uL (4.0-11.0) Red Blood Count 1.81x10^6/uL (3.50-5.40) Hemoglobin 6.3g/dL (12.0-15.5) Hematocrit 18.2% (36.0-47.0) Mean Corpuscular Volume 101fL (79-100) Mean Corpuscular Hemoglobin 35pg (25-35) Mean Corpuscular Hemoglobin Concent 35g/dL (31-37) Red Cell Distribution Width 25.4% (11.5-14.5) Platelet Count 377x10^3/uL (140-400) Neutrophils (%) (Auto) 55% (31-73) Lymphocytes (%) (Auto) 28% (24-48) Monocytes (%) (Auto) 13% (0-9) Eosinophils (%) (Auto) 3% (0-3) Basophils (%) (Auto) 1% (0-3) Neutrophils # (Auto) 8.3x10^3uL (1.8-7.7) Lymphocytes # (Auto) 4.2x10^3/uL (1.0-4.8) Monocytes # (Auto) 1.9x10^3/uL (0.0-1.1) Eosinophils # (Auto) 0.5x10^3/uL (0.0-0.7) Basophils # (Auto) 0.1x10^3/uL (0.0-0.2) Reticulocyte Count (auto) 14.5% (0.5-2.5) Sodium Level 145mmol/L (136-145) Potassium Level 4.2mmol/L (3.5-5.1) Chloride Level 112mmol/L (98-107) Carbon Dioxide Level 24mmol/L (21-32) Anion Gap 9 (6-14) Blood Urea Nitrogen 9mg/dL (7-20) Creatinine 0.5mg/dL (0.6-1.0) Estimated GFR (Cockcroft-Gault) 185.0 Glucose Level 87mg/dL (70-99) Calcium Level 8.7mg/dL (8.5-10.1) Review of Systems Review of Systems leg pains, no soa, no CP Assessment and Plan Assessmemt and Plan Problems Medical Problems: (1) Sickle cell pain crisis Status: Acute Problems: Comment Review of Relevant I have reviewed the following items chris (where applicable) has been applied. Labs Laboratory Tests Test 11/29/16 06:20 11/30/16 06:30 White Blood Count 18.0x10^3/uL (4.0-11.0) 14.9x10^3/uL (4.0-11.0) Red Blood Count 1.86x10^6/uL (3.50-5.40) 1.81x10^6/uL (3.50-5.40) Hemoglobin 6.4g/dL (12.0-15.5) 6.3g/dL (12.0-15.5) Hematocrit 18.4% (36.0-47.0) 18.2% (36.0-47.0) Mean Corpuscular Volume 99fL (79-100) 101fL (79-100) Mean Corpuscular Hemoglobin 34pg (25-35) 35pg (25-35) Mean Corpuscular Hemoglobin Concent 35g/dL (31-37) 35g/dL (31-37) Red Cell Distribution Width 23.5% (11.5-14.5) 25.4% (11.5-14.5) Platelet Count 395x10^3/uL (140-400) 377x10^3/uL (140-400) Neutrophils (%) (Auto) 56% (31-73) 55% (31-73) Lymphocytes (%) (Auto) 29% (24-48) 28% (24-48) Monocytes (%) (Auto) 11% (0-9) 13% (0-9) Eosinophils (%) (Auto) 3% (0-3) 3% (0-3) Basophils (%) (Auto) 1% (0-3) 1% (0-3) Neutrophils # (Auto) 10.1x10^3uL (1.8-7.7) 8.3x10^3uL (1.8-7.7) Lymphocytes # (Auto) 5.3x10^3/uL (1.0-4.8) 4.2x10^3/uL (1.0-4.8) Monocytes # (Auto) 2.0x10^3/uL (0.0-1.1) 1.9x10^3/uL (0.0-1.1) Eosinophils # (Auto) 0.5x10^3/uL (0.0-0.7) 0.5x10^3/uL (0.0-0.7) Basophils # (Auto) 0.1x10^3/uL (0.0-0.2) 0.1x10^3/uL (0.0-0.2) Reticulocyte Count (auto) 12.1% (0.5-2.5) 14.5% (0.5-2.5) Sodium Level 140mmol/L (136-145) 145mmol/L (136-145) Potassium Level 4.2mmol/L (3.5-5.1) 4.2mmol/L (3.5-5.1) Chloride Level 107mmol/L (98-107) 112mmol/L (98-107) Carbon Dioxide Level 24mmol/L (21-32) 24mmol/L (21-32) Anion Gap 9 (6-14) 9 (6-14) Blood Urea Nitrogen 6mg/dL (7-20) 9mg/dL (7-20) Creatinine 0.5mg/dL (0.6-1.0) 0.5mg/dL (0.6-1.0) Estimated GFR (Cockcroft-Gault) 185.0 185.0 Glucose Level 86mg/dL (70-99) 87mg/dL (70-99) Calcium Level 8.7mg/dL (8.5-10.1) 8.7mg/dL (8.5-10.1) Laboratory Tests Test 11/30/16 06:30 White Blood Count 14.9x10^3/uL (4.0-11.0) Red Blood Count 1.81x10^6/uL (3.50-5.40) Hemoglobin 6.3g/dL (12.0-15.5) Hematocrit 18.2% (36.0-47.0) Mean Corpuscular Volume 101fL (79-100) Mean Corpuscular Hemoglobin 35pg (25-35) Mean Corpuscular Hemoglobin Concent 35g/dL (31-37) Red Cell Distribution Width 25.4% (11.5-14.5) Platelet Count 377x10^3/uL (140-400) Neutrophils (%) (Auto) 55% (31-73) Lymphocytes (%) (Auto) 28% (24-48) Monocytes (%) (Auto) 13% (0-9) Eosinophils (%) (Auto) 3% (0-3) Basophils (%) (Auto) 1% (0-3) Neutrophils # (Auto) 8.3x10^3uL (1.8-7.7) Lymphocytes # (Auto) 4.2x10^3/uL (1.0-4.8) Monocytes # (Auto) 1.9x10^3/uL (0.0-1.1) Eosinophils # (Auto) 0.5x10^3/uL (0.0-0.7) Basophils # (Auto) 0.1x10^3/uL (0.0-0.2) Reticulocyte Count (auto) 14.5% (0.5-2.5) Sodium Level 145mmol/L (136-145) Potassium Level 4.2mmol/L (3.5-5.1) Chloride Level 112mmol/L (98-107) Carbon Dioxide Level 24mmol/L (21-32) Anion Gap 9 (6-14) Blood Urea Nitrogen 9mg/dL (7-20) Creatinine 0.5mg/dL (0.6-1.0) Estimated GFR (Cockcroft-Gault) 185.0 Glucose Level 87mg/dL (70-99) Calcium Level 8.7mg/dL (8.5-10.1) Medications Current Medications Hydromorphone HCl 1 mg 1 mg 1X ONCE IV Last administered on 11/23/16 02:18; Start 11/23/16 at 01:45; Stop 11/23/16 at 01:46; Status DC Promethazine HCl 12.5 mg/Sodium Chloride 50.5 ml @ 151.5 mls/ hr PRN Q6HRS PRN IV NAUSEA/VOMITING; Start 11/23/16 at 01:30 Sodium Chloride (Iv Sodium Chloride 0.9% 1000ml Bag) 1,000 ml @ 1,000 mls/hr 1X ONCE IV Last administered on 11/23/16 01:50; Start 11/23/16 at 01:30; Stop 11/23/16 at 02:29; Status DC Promethazine HCl (Phenergan Im) 12.5 mg 1X ONCE IM Last administered on 02:15; Start 11/23/16 at 02:15; Stop 11/23/16 at 02:16; Status DC Hydromorphone HCl (Dilaudid) 1 mg 1X ONCE IV Last administered on 11/23/16 03 :48; Start 11/23/16 at 03:45; Stop 11/23/16 at 03:46; Status DC Ondansetron HCl 4 mg 4 mg PRN Q8HRS PRN IV NAUSEA/VOMITING; Start 11/23/16 at 05:15; Stop 11/24/16 at 05:14; Status DC Sodium Chloride (Iv Sodium Chloride 0.9% 1000ml Bag) 1,000 ml @ 125 mls/hr Q8H IV Last administered on 11/23/16 22:53; Start 11/23/16 at 05:15; Stop at 05:14; Status DC Acetaminophen (Tylenol) 650 mg PRN Q4HRS PRN PO FEVER; Start 11/23/16 at 05:15 ; Stop 11/24/16 at 05:14; Status DC Hydromorphone HCl (Dilaudid) 1 mg Q2H IV Last administered on 11/24/16 08:47; Start 11/23/16 at 05:00; Stop 11/24/16 at 15:06; Status DC Zolpidem Tartrate (Ambien) 5 mg PRN QHS PRN PO sleep Last administered on 20:41; Start 11/23/16 at 19:30; Stop 11/24/16 at 15:12; Status DC Acetaminophen (Tylenol) 325 mg PRN QID PRN PO PAIN; Start 11/23/16 at 22:15 Diphenhydramine HCl (Benadryl) 50 mg PRN Q6HRS PRN PO ANXIETY / AGITATION Last administered on 11/30/16 00:08; Start 11/23/16 at 22:15 Folic Acid (Folic Acid) 1 mg DAILY PO Last administered on 11/30/16 09:03; Start 11/24/16 at 09:00 Hydromorphone HCl (Dilaudid) 4 mg PRN Q4HRS PRN PO PAIN; Start 11/23/16 at 22: 15; Stop 11/24/16 at 15:12; Status DC Hydroxyurea (Hydrea) 1,000 mg DAILY PO Last administered on 11/30/16 09:07; Start 11/24/16 at 09:00 Ibuprofen (Motrin) 200 mg PRN Q6HRS PRN PO INFLAMMATION Last administered on 04:10; Start 11/23/16 at 22:15 Prednisone 20 mg 20 mg DAILY PO Last administered on 11/30/16 09:03; Start at 09:00 Ceftriaxone Sodium 1 gm/ Sodium Chloride 50 ml @ 100 mls/hr Q24H IV Last administered on 11/28/16 21:37; Start 11/23/16 at 22:30; Stop 11/29/16 at 14:45 ; Status DC Sodium Chloride 1,000 ml @ 125 mls/hr Q8H IV Last administered on 11/28/16 08 :51; Start 11/24/16 at 09:30; Stop 11/28/16 at 12:53; Status DC Hydromorphone HCl (Dilaudid Standard NURSES EDUCATOR) 30 ml @ 0 mls/hr CONT PRN PRN IV PROTOCOL Last administered on 11/26/16 11:25; Start 11/24/16 at 09:30; Stop at 14:37; Status DC Zolpidem Tartrate (Ambien) 5 mg PRN QHS PRN PO INSOMNIA Last administered on 20:25; Start 11/24/16 at 12:00; Stop 11/25/16 at 08:23; Status DC Zolpidem Tartrate 5 mg 5 mg PRN QHS PRN PO INSOMNIA, MAY REPEAT IN 1HR Last administered on 11/29/16 21:01; Start 11/25/16 at 08:30 Hydromorphone HCl 30 ml @ 0 mls/hr CONT PRN PRN IV PROTOCOL Last administered on 11/30/16 09:07; Start 11/26/16 at 14:45 Sodium Chloride (Iv Sodium Chloride 0.9% 1000ml Bag) 1,000 ml @ 200 mls/hr Q5H IV Last administered on 11/30/16 08:59; Start 11/28/16 at 13:00 Lidocaine/Sodium Bicarbonate 20 ml 20 ml STK-MED ONCE IJ ; Start 11/28/16 at 13: 57; Stop 11/28/16 at 13:58; Status DC Heparin Sodium/ Sodium Chloride 500 ml @ As Directed STK-MED ONCE .ROUTE ; Start 11/28/16 at 14:00; Stop 11/28/16 at 14:01; Status DC Lidocaine/Sodium Bicarbonate (Buffered Lidocaine 1%) 3 ml 1X ONCE IJ Last administered on 11/28/16 14:55; Start 11/28/16 at 15:00; Stop 11/28/16 at 15:01 ; Status DC Heparin Sodium/ Sodium Chloride 60 unit 1X ONCE IV Last administered on 14:55; Start 11/28/16 at 15:00; Stop 11/28/16 at 15:01; Status DC Docusate Sodium (Colace) 100 mg DAILY PO Last administered on 11/30/16 10:56; Start 11/30/16 at 10:00 Polyethylene Glycol (miraLAX PACKET) 17 gm DAILY PO Last administered on 10:56; Start 11/30/16 at 10:00 Magnesium Hydroxide (Milk Of Magnesia) 2,400 mg PRN DAILY PRN PO CONSTIPATION; Start 11/30/16 at 10:00 Active Scripts Active Dilaudid (Hydromorphone Hcl) 4 Mg Tablet 1 Tab PO Q4HRS PRN Tylenol (Acetaminophen) 325 Mg Tablet 2 Tab PO QID PRN Benadryl (Diphenhydramine Hcl) 25 Mg Capsule 50 Mg PO Q6HRS PRN Ambien (Zolpidem Tartrate) 5 Mg Tablet 1 Tab PO QHS PRN Prednisone 10 Mg Tablet 10 Mg PO UD Take 3 tablets by mouth daily for 3 days, then take 2 tablets by mouth daily for 3 days, then take 1 tablet by mouth daily for 3 days, then stop. Ibuprofen 200 Mg Tablet 200 Mg PO PRN Q6HRS PRN Folic Acid 1 Mg Tablet 1 Tab PO DAILY Hydroxyurea 500 Mg Capsule 1,000 Mg PO DAILY Vitals/I & O Vital Sign - Last 24 Hours 11/29/16 11/29/16 11/29/16 11/29/16 11:51 12:27 15:00 19:20 Temp 98.2 98.4 98.4 98.2 98.4 98.4 Pulse 80 77 92 Resp 16 18 16 16 B/P 109/72 105/64 117/68 Pulse Ox 95 95 97 O2 Delivery Room Air Room Air Room Air Room Air 11/29/16 11/29/16 11/29/16 11/30/16 20:10 21:32 23:25 03:20 Temp 98.2 98.2 Pulse 61 69 Resp 18 16 16 B/P 110/70 127/61 Pulse Ox 96 96 93 O2 Delivery Room Air Room Air Room Air Room Air 11/30/16 11/30/16 11/30/16 11/30/16 07:00 08:00 09:07 09:37 Temp 97.9 97.9 Pulse 63 Resp 17 16 16 B/P 112/71 Pulse Ox 98 98 98 O2 Delivery Room Air Room Air Room Air Room Air 11/30/16 11:21 Temp 98.0 98.0 Pulse 78 Resp 18 B/P 119/69 Pulse Ox 98 O2 Delivery Room Air Intake and Output 11/29/16 11/29/16 11/30/16 15:00 23:00 07:00 Intake Total 950 ml Output Total 900 ml 4200 ml Balance -900 ml 950 ml -4200 ml JOHN HEWITT MD Nov 30, 2016 11:24
[2016-11-30] MEDS: IBUPROFEN 200 MG TABLET PO PRN (16:38)
[2016-11-30] MEDS: ZOLPIDEM 5 MG TABLET. PO PRN ×2 (20:11→21:11)
[2016-12-01 03:20] VITALS: BP 122/77
[2016-12-01] MEDS: IV NORMAL SALINE 1000ML BAG 1,000 ML IV SCH ×5 (05:17→20:08)
[2016-12-01 06:40] LABS: CALCIUM 8.5 mg/dL (8.5-10.1); CREATININE 0.5 mg/dL (0.6-1.0)
[2016-12-01 07:00] VITALS: BP 115/74
[2016-12-01 07:09] LABS: BASO # 0.1 x10^3/uL (0.0-0.2); BASO % 1 % (0-3); EOS % 4 % (0-3); HEMOGLOBIN 7.1 g/dL (12.0-15.5); LYMPH % 35 % (24-48); MEAN CORPUSCULAR HEMOGLOBIN 34 pg (25-35); MEAN CORPUSCULAR HGB CONC 34 g/dL (31-37); MEAN CORPUSCULAR VOLUME 99 fL (79-100); MONO % 12 % (0-9); NEUT % 48 % (31-73); PLATELET COUNT 329 x10^3/uL (140-400); RED CELL DISTRIBUTION WIDTH 25.2 % (11.5-14.5); WHITE BLOOD COUNT 14.2 x10^3/uL (4.0-11.0)
[2016-12-01 07:18] LABS: HEMATOCRIT 20.7 % (36.0-47.0)
--- NOTE | 2016-12-01 08:49 | PDOC ---
Subjective: Subjective: Onc fu- SCD Pt with less pain today. No SOB, chest pain. Leg pain resolved. Feels like she may be able to leave tomorrow. Hgb improved. Objective: Vital Signs: Vital Signs Date Time Temp Pulse Resp B/P Pulse Ox O2 Delivery O2 Flow Rate FiO2 12/01/16 07:00 97.9 51 18 115/74 94 Room Air 97.9 Physical Exam: Heart: Regular rate Extremities: No edema General: Alert, Oriented X3, Cooperative, No acute distress Lungs: Normal air movement Psych/Mental Status: Mental status NL, Mood NL, Other (calm) Labs/Imaging: Hgb up to 7.1 from 6.3 yesterday Retic count improved from 14 to 8.2 Assessment/Plan A/P: 1. Sickle cell disease with noncompliance with Hydrea and pain medications as an outpatient. - Historically has refused to establish outpt care, comes to hospital when she runs out of meds. Have again encouraged her to establish with someone as outp for ongoing refills. - Continue hydrea, folic acid. - Limit transfusions ideally until hgb near 6 or symptomatic with retic count increasing due to iron overload and development of autoantibodies causing difficulty finding blood and h/o transfusion reactions - S/p transfusion 11/30 with improvement of sx and retic count today. 2. Iron overload due to previous transfusions, - Ferritin 1200 - She would not be compliant with outpatient iron chelation therapy. 3. Medical noncompliance. Behavior, not financial. Again encouraged outpt PCP and pain clinic at [facility]. 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 Limit transfusions as able. Pt feels she may be ready to DC tomorrow. Labs improving. Ok to DC from onc standpoint. RADHA ALSTON DO Dec 01, 2016 08:49
[2016-12-01] MEDS: POLYETHYLENE GLYCOL 3350 17 GM PACKET. PO SCH (09:00)
[2016-12-01] MEDS: FOLIC ACID 1 MG TABLET PO SCH (09:56)
[2016-12-01] MEDS: HYDROXYUREA 500 MG CAPSULE PO SCH (10:01)
[2016-12-01] MEDS: DOCUSATE SODIUM 100 MG CAPSULE PO SCH (10:05)
[2016-12-01] MEDS: PREDNISONE 20 MG TABLET PO SCH (10:05)
[2016-12-01 10:57] VITALS: BP 120/72
[2016-12-01] MEDS: HYDROMORPHONE STANDARD PCA 30 ML IV PRN ×2 (11:17→22:01)
[2016-12-01] MEDS: MORPHINE ER 30 MG TABLET.ER PO SCH ×3 (12:30→22:00)
--- NOTE | 2016-12-01 12:34 | PDOC ---
PROGRESS NOTES Chief Complaint Chief Complaint 1. Sickle cell disease, acute pain and disease 2. Chronic pain 3. Narcotic dependence and tolerance 4. Anemia 5. noncompliance meds History of Present Illness History of Present Illness hgb 7.1 s./p [address] better also today feels ok PLAn: Recheck labs emily If not worse and pt feeling better dc emily Stay still necessitates IV tube cleaner dilaudid -- will stop on day of dc Needs rx of pain meds I will start PO pain emds today Vitals Vitals Vital Signs Date Time Temp Pulse Resp B/P Pulse Ox O2 Delivery O2 Flow Rate FiO2 12/01/16 11:17 18 95 Room Air 12/01/16 10:57 98.3 61 120/72 98.3 Physical Exam General: Alert, Oriented X3, Cooperative, No acute distress Heart: Regular rate Lungs: Clear, Other (No wheezing) Abdomen: Soft, No tenderness Extremities: No edema Skin: No rashes, No breakdown Labs LABS Laboratory Tests Test 12/01/16 06:20 White Blood Count 14.2x10^3/uL (4.0-11.0) Red Blood Count 2.10x10^6/uL (3.50-5.40) Hemoglobin 7.1g/dL (12.0-15.5) Hematocrit 20.7% (36.0-47.0) Mean Corpuscular Volume 99fL (79-100) Mean Corpuscular Hemoglobin 34pg (25-35) Mean Corpuscular Hemoglobin Concent 34g/dL (31-37) Red Cell Distribution Width 25.2% (11.5-14.5) Platelet Count 329x10^3/uL (140-400) Neutrophils (%) (Auto) 48% (31-73) Lymphocytes (%) (Auto) 35% (24-48) Monocytes (%) (Auto) 12% (0-9) Eosinophils (%) (Auto) 4% (0-3) Basophils (%) (Auto) 1% (0-3) Neutrophils # (Auto) 6.8x10^3uL (1.8-7.7) Lymphocytes # (Auto) 5.0x10^3/uL (1.0-4.8) Monocytes # (Auto) 1.6x10^3/uL (0.0-1.1) Eosinophils # (Auto) 0.6x10^3/uL (0.0-0.7) Basophils # (Auto) 0.1x10^3/uL (0.0-0.2) Reticulocyte Count (auto) 8.2% (0.5-2.5) Sodium Level 141mmol/L (136-145) Potassium Level 4.0mmol/L (3.5-5.1) Chloride Level 109mmol/L (98-107) Carbon Dioxide Level 24mmol/L (21-32) Anion Gap 8 (6-14) Blood Urea Nitrogen 7mg/dL (7-20) Creatinine 0.5mg/dL (0.6-1.0) Estimated GFR (Cockcroft-Gault) 185.0 Glucose Level 86mg/dL (70-99) Calcium Level 8.5mg/dL (8.5-10.1) Review of Systems Review of Systems pain stable, no soa, no cp Assessment and Plan Assessmemt and Plan Problems Medical Problems: (1) Sickle cell pain crisis Status: Acute Problems: Comment Review of Relevant I have reviewed the following items chris (where applicable) has been applied. Labs Laboratory Tests Test 11/30/16 06:30 12/01/16 06:20 White Blood Count 14.9x10^3/uL (4.0-11.0) 14.2x10^3/uL (4.0-11.0) Red Blood Count 1.81x10^6/uL (3.50-5.40) 2.10x10^6/uL (3.50-5.40) Hemoglobin 6.3g/dL (12.0-15.5) 7.1g/dL (12.0-15.5) Hematocrit 18.2% (36.0-47.0) 20.7% (36.0-47.0) Mean Corpuscular Volume 101fL (79-100) 99fL (79-100) Mean Corpuscular Hemoglobin 35pg (25-35) 34pg (25-35) Mean Corpuscular Hemoglobin Concent 35g/dL (31-37) 34g/dL (31-37) Red Cell Distribution Width 25.4% (11.5-14.5) 25.2% (11.5-14.5) Platelet Count 377x10^3/uL (140-400) 329x10^3/uL (140-400) Neutrophils (%) (Auto) 55% (31-73) 48% (31-73) Lymphocytes (%) (Auto) 28% (24-48) 35% (24-48) Monocytes (%) (Auto) 13% (0-9) 12% (0-9) Eosinophils (%) (Auto) 3% (0-3) 4% (0-3) Basophils (%) (Auto) 1% (0-3) 1% (0-3) Neutrophils # (Auto) 8.3x10^3uL (1.8-7.7) 6.8x10^3uL (1.8-7.7) Lymphocytes # (Auto) 4.2x10^3/uL (1.0-4.8) 5.0x10^3/uL (1.0-4.8) Monocytes # (Auto) 1.9x10^3/uL (0.0-1.1) 1.6x10^3/uL (0.0-1.1) Eosinophils # (Auto) 0.5x10^3/uL (0.0-0.7) 0.6x10^3/uL (0.0-0.7) Basophils # (Auto) 0.1x10^3/uL (0.0-0.2) 0.1x10^3/uL (0.0-0.2) Reticulocyte Count (auto) 14.5% (0.5-2.5) 8.2% (0.5-2.5) Sodium Level 145mmol/L (136-145) 141mmol/L (136-145) Potassium Level 4.2mmol/L (3.5-5.1) 4.0mmol/L (3.5-5.1) Chloride Level 112mmol/L (98-107) 109mmol/L (98-107) Carbon Dioxide Level 24mmol/L (21-32) 24mmol/L (21-32) Anion Gap 9 (6-14) 8 (6-14) Blood Urea Nitrogen 9mg/dL (7-20) 7mg/dL (7-20) Creatinine 0.5mg/dL (0.6-1.0) 0.5mg/dL (0.6-1.0) Estimated GFR (Cockcroft-Gault) 185.0 185.0 Glucose Level 87mg/dL (70-99) 86mg/dL (70-99) Calcium Level 8.7mg/dL (8.5-10.1) 8.5mg/dL (8.5-10.1) Laboratory Tests Test 12/01/16 06:20 White Blood Count 14.2x10^3/uL (4.0-11.0) Red Blood Count 2.10x10^6/uL (3.50-5.40) Hemoglobin 7.1g/dL (12.0-15.5) Hematocrit 20.7% (36.0-47.0) Mean Corpuscular Volume 99fL (79-100) Mean Corpuscular Hemoglobin 34pg (25-35) Mean Corpuscular Hemoglobin Concent 34g/dL (31-37) Red Cell Distribution Width 25.2% (11.5-14.5) Platelet Count 329x10^3/uL (140-400) Neutrophils (%) (Auto) 48% (31-73) Lymphocytes (%) (Auto) 35% (24-48) Monocytes (%) (Auto) 12% (0-9) Eosinophils (%) (Auto) 4% (0-3) Basophils (%) (Auto) 1% (0-3) Neutrophils # (Auto) 6.8x10^3uL (1.8-7.7) Lymphocytes # (Auto) 5.0x10^3/uL (1.0-4.8) Monocytes # (Auto) 1.6x10^3/uL (0.0-1.1) Eosinophils # (Auto) 0.6x10^3/uL (0.0-0.7) Basophils # (Auto) 0.1x10^3/uL (0.0-0.2) Reticulocyte Count (auto) 8.2% (0.5-2.5) Sodium Level 141mmol/L (136-145) Potassium Level 4.0mmol/L (3.5-5.1) Chloride Level 109mmol/L (98-107) Carbon Dioxide Level 24mmol/L (21-32) Anion Gap 8 (6-14) Blood Urea Nitrogen 7mg/dL (7-20) Creatinine 0.5mg/dL (0.6-1.0) Estimated GFR (Cockcroft-Gault) 185.0 Glucose Level 86mg/dL (70-99) Calcium Level 8.5mg/dL (8.5-10.1) Medications Current Medications Hydromorphone HCl 1 mg 1 mg 1X ONCE IV Last administered on 11/23/16 02:18; Start 11/23/16 at 01:45; Stop 11/23/16 at 01:46; Status DC Promethazine HCl 12.5 mg/Sodium Chloride 50.5 ml @ 151.5 mls/ hr PRN Q6HRS PRN IV NAUSEA/VOMITING; Start 11/23/16 at 01:30 Sodium Chloride (Iv Sodium Chloride 0.9% 1000ml Bag) 1,000 ml @ 1,000 mls/hr 1X ONCE IV Last administered on 11/23/16 01:50; Start 11/23/16 at 01:30; Stop 11/23/16 at 02:29; Status DC Promethazine HCl (Phenergan Im) 12.5 mg 1X ONCE IM Last administered on 02:15; Start 11/23/16 at 02:15; Stop 11/23/16 at 02:16; Status DC Hydromorphone HCl (Dilaudid) 1 mg 1X ONCE IV Last administered on 11/23/16 03 :48; Start 11/23/16 at 03:45; Stop 11/23/16 at 03:46; Status DC Ondansetron HCl 4 mg 4 mg PRN Q8HRS PRN IV NAUSEA/VOMITING; Start 11/23/16 at 05:15; Stop 11/24/16 at 05:14; Status DC Sodium Chloride (Iv Sodium Chloride 0.9% 1000ml Bag) 1,000 ml @ 125 mls/hr Q8H IV Last administered on 11/23/16 22:53; Start 11/23/16 at 05:15; Stop at 05:14; Status DC Acetaminophen (Tylenol) 650 mg PRN Q4HRS PRN PO FEVER; Start 11/23/16 at 05:15 ; Stop 11/24/16 at 05:14; Status DC Hydromorphone HCl (Dilaudid) 1 mg Q2H IV Last administered on 11/24/16 08:47; Start 11/23/16 at 05:00; Stop 11/24/16 at 15:06; Status DC Zolpidem Tartrate (Ambien) 5 mg PRN QHS PRN PO sleep Last administered on 20:41; Start 11/23/16 at 19:30; Stop 11/24/16 at 15:12; Status DC Acetaminophen (Tylenol) 325 mg PRN QID PRN PO PAIN; Start 11/23/16 at 22:15 Diphenhydramine HCl (Benadryl) 50 mg PRN Q6HRS PRN PO ANXIETY / AGITATION Last administered on 11/30/16 23:16; Start 11/23/16 at 22:15 Folic Acid (Folic Acid) 1 mg DAILY PO Last administered on 12/01/16 09:56; Start 11/24/16 at 09:00 Hydromorphone HCl (Dilaudid) 4 mg PRN Q4HRS PRN PO PAIN; Start 11/23/16 at 22: 15; Stop 11/24/16 at 15:12; Status DC Hydroxyurea (Hydrea) 1,000 mg DAILY PO Last administered on 12/01/16 10:01; Start 11/24/16 at 09:00 Ibuprofen (Motrin) 200 mg PRN Q6HRS PRN PO INFLAMMATION Last administered on 16:38; Start 11/23/16 at 22:15 Prednisone 20 mg 20 mg DAILY PO Last administered on 12/01/16 10:05; Start at 09:00 Ceftriaxone Sodium 1 gm/ Sodium Chloride 50 ml @ 100 mls/hr Q24H IV Last administered on 11/28/16 21:37; Start 11/23/16 at 22:30; Stop 11/29/16 at 14:45 ; Status DC Sodium Chloride 1,000 ml @ 125 mls/hr Q8H IV Last administered on 11/28/16 08 :51; Start 11/24/16 at 09:30; Stop 11/28/16 at 12:53; Status DC Hydromorphone HCl (Dilaudid Standard [employer]FU[employer]) 30 ml @ 0 mls/hr CONT PRN PRN IV PROTOCOL Last administered on 11/26/16 11:25; Start 11/24/16 at 09:30; Stop at 14:37; Status DC Zolpidem Tartrate (Ambien) 5 mg PRN QHS PRN PO INSOMNIA Last administered on 20:25; Start 11/24/16 at 12:00; Stop 11/25/16 at 08:23; Status DC Zolpidem Tartrate 5 mg 5 mg PRN QHS PRN PO INSOMNIA, MAY REPEAT IN 1HR Last administered on 11/30/16 21:11; Start 11/25/16 at 08:30 Hydromorphone HCl 30 ml @ 0 mls/hr CONT PRN PRN IV PROTOCOL Last administered on 12/01/16 11:17; Start 11/26/16 at 14:45 Sodium Chloride (Iv Sodium Chloride 0.9% 1000ml Bag) 1,000 ml @ 200 mls/hr Q5H IV Last administered on 12/01/16 10:05; Start 11/28/16 at 13:00 Lidocaine/Sodium Bicarbonate 20 ml 20 ml STK-MED ONCE IJ ; Start 11/28/16 at 13: 57; Stop 11/28/16 at 13:58; Status DC Heparin Sodium/ Sodium Chloride 500 ml @ As Directed STK-MED ONCE .ROUTE ; Start 11/28/16 at 14:00; Stop 11/28/16 at 14:01; Status DC Lidocaine/Sodium Bicarbonate (Buffered Lidocaine 1%) 3 ml 1X ONCE IJ Last administered on 11/28/16 14:55; Start 11/28/16 at 15:00; Stop 11/28/16 at 15:01 ; Status DC Heparin Sodium/ Sodium Chloride 60 unit 1X ONCE IV Last administered on 14:55; Start 11/28/16 at 15:00; Stop 11/28/16 at 15:01; Status DC Docusate Sodium (Colace) 100 mg DAILY PO Last administered on 12/01/16 10:05; Start 11/30/16 at 10:00 Polyethylene Glycol (miraLAX PACKET) 17 gm DAILY PO Last administered on 10:56; Start 11/30/16 at 10:00 Magnesium Hydroxide (Milk Of Magnesia) 2,400 mg PRN DAILY PRN PO CONSTIPATION; Start 11/30/16 at 10:00 Active Scripts Active Dilaudid (Hydromorphone Hcl) 4 Mg Tablet 1 Tab PO Q4HRS PRN Tylenol (Acetaminophen) 325 Mg Tablet 2 Tab PO QID PRN Benadryl (Diphenhydramine Hcl) 25 Mg Capsule 50 Mg PO Q6HRS PRN Ambien (Zolpidem Tartrate) 5 Mg Tablet 1 Tab PO QHS PRN Prednisone 10 Mg Tablet 10 Mg PO UD Take 3 tablets by mouth daily for 3 days, then take 2 tablets by mouth daily for 3 days, then take 1 tablet by mouth daily for 3 days, then stop. Ibuprofen 200 Mg Tablet 200 Mg PO PRN Q6HRS PRN Folic Acid 1 Mg Tablet 1 Tab PO DAILY Hydroxyurea 500 Mg Capsule 1,000 Mg PO DAILY Vitals/I & O Vital Sign - Last 24 Hours 11/30/16 11/30/16 11/30/16 11/30/16 15:00 16:30 16:47 17:15 Temp 97.5 98.1 97.9 97.9 97.5 98.1 97.9 97.9 Pulse 90 73 77 73 Resp B/P 121/67 111/67 120/61 106/73 Pulse Ox 97 O2 Delivery Room Air 11/30/16 11/30/16 11/30/16 11/30/16 17:30 18:45 19:35 20:00 Temp 98.2 98.4 98.1 98.2 98.4 98.1 Pulse 76 69 88 Resp B/P 118/68 112/75 115/72 Pulse Ox 99 O2 Delivery Room Air Room Air 11/30/16 11/30/16 11/30/16 12/01/16 23:20 23:21 23:51 03:20 Temp 98.1 97.9 98.1 97.9 Pulse 54 75 Resp B/P 110/56 122/77 Pulse Ox 100 96 96 98 O2 Delivery Room Air Room Air Room Air Room Air 12/01/16 12/01/16 12/01/16 12/01/16 07:00 08:00 10:57 11:17 Temp 97.9 98.3 97.9 98.3 Pulse 51 61 Resp 18 18 18 B/P 115/74 120/72 Pulse Ox 94 95 95 O2 Delivery Room Air Room Air Room Air Room Air Intake and Output 11/30/16 11/30/16 12/01/16 15:00 23:00 07:00 Intake Total 308 ml Output Total 800 ml 2800 ml Balance -492 ml -2800 ml JOHN HEWITT MD Dec 01, 2016 12:34
[2016-12-01] MEDS ORDERED: HYDROMORPHONE 4 MG TABLET. PO PRN (12:45)
[2016-12-01 15:05] VITALS: BP 118/70
[2016-12-01 19:36] VITALS: BP 123/65
[2016-12-01] MEDS: ZOLPIDEM 5 MG TABLET. PO PRN (20:08)
[2016-12-01] MEDS ORDERED: ZOLPIDEM 5 MG TABLET. PO ONE (21:15)
[2016-12-01 23:33] VITALS: BP 129/69
[2016-12-02] MEDS: IV NORMAL SALINE 1000ML BAG 1,000 ML IV SCH ×3 (01:06→10:58)
[2016-12-02 06:44] LABS: HEMATOCRIT 21.7 % (36.0-47.0); HEMOGLOBIN 7.4 g/dL (12.0-15.5)
[2016-12-02 06:56] LABS: RETIC COUNT 5.3 % (0.5-2.5)
[2016-12-02 07:00] VITALS: BP 134/70
[2016-12-02] MEDS: DOCUSATE SODIUM 100 MG CAPSULE PO SCH (08:43)
[2016-12-02] MEDS: PREDNISONE 20 MG TABLET PO SCH (08:44)
[2016-12-02] MEDS: MORPHINE ER 30 MG TABLET.ER PO SCH (08:44)
[2016-12-02] MEDS: FOLIC ACID 1 MG TABLET PO SCH (08:44)
[2016-12-02] MEDS: POLYETHYLENE GLYCOL 3350 17 GM PACKET. PO SCH (08:44)
[2016-12-02] MEDS: HYDROXYUREA 500 MG CAPSULE PO SCH (08:53)
--- NOTE | 2016-12-02 09:13 | PDOC ---
Subjective: Subjective: Heme f/u- SCD with crisis Pt reports she is stable for DC today. Pain controlled. She will call her insurance to see who takes her insurance for PCP f/u and pain mgt. No SOB, CP, leg pain today. Objective: Vital Signs: Vital Signs Date Time Temp Pulse Resp B/P Pulse Ox O2 Delivery O2 Flow Rate FiO2 12/02/16 08:44 18 98 Room Air 12/02/16 07:00 97.5 53 134/70 97.5 Physical Exam: Extremities: No edema General: Alert, Oriented X3, Cooperative, No acute distress Lungs: Normal air movement Psych/Mental Status: Mental status NL, Mood NL Labs/Imaging: Hgb 7.4 (stable) Retic dwon from 8.2 to 5.3 Assessment/Plan A/P: 1. Sickle cell disease with noncompliance with Hydrea and pain medications as an outpatient. - Historically has refused to establish outpt care, comes to hospital when she runs out of meds. Have again encouraged her to establish with someone as outp for ongoing refills. She will call her insurance to see what providers she can see. - Continue hydrea, folic acid as outpt. - Limit transfusions ideally until hgb near 6 or symptomatic with retic count increasing due to iron overload and development of autoantibodies causing difficulty finding blood and h/o transfusion reactions - S/p transfusion 11/30 with improvement of sx and retic count. 2. Iron overload due to previous transfusions, - Ferritin 1200 - She would not be compliant with outpatient iron chelation therapy. 3. Medical noncompliance. Behavior, not financial. Again encouraged outpt PCP and pain clinic at [facility]. 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 Limit transfusions as able. Plan: - Ok to DC on folate and hydrea as before - Please provide 30 day rx; she is aware she needs to set up f/u with PCP in the future for ongoing meds and [facility] pain clinic for detox/ pain med mgt. RADHA ALSTON DO Dec 02, 2016 09:13
[2016-12-02 11:00] VITALS: BP 122/71
[2016-12-02] MEDS: HYDROMORPHONE STANDARD PCA 30 ML IV PRN (11:26)
[2016-12-02] MEDS ORDERED: METH10TA2 PO (13:57)
[2016-12-02] MEDS ORDERED: OXYC10TA PO (13:57)
--- NOTE | 2016-12-02 14:01 | PDOC3 ---
Discharge Summary Visit Information Date of Admission: Nov 23, 2016 Date of Discharge: Dec 02, 2016 Admitting Diagnosis Comment: 1. Sickle cell disease, acute pain and disease 2. Chronic pain 3. Narcotic dependence and tolerance 4. Anemia 5. noncompliance meds Final Diagnosis Problems Medical Problems: (1) Sickle cell anemia Status: Acute (2) Sickle cell pain crisis Status: Acute Brief Hospital Course Allergies Allergies Coded Allergies Type Severity Reaction Last Updated Verified acetaminophen Allergy Intermediate ITCHING 09/02/16 Yes I S O L A T I O N *CONTACT* Allergy Unknown 09/02/16 Yes Vital Signs Vital Signs Date Time Temp Pulse Resp B/P Pulse Ox O2 Delivery O2 Flow Rate FiO2 12/02/16 12:44 18 98 Room Air 12/02/16 11:00 98.5 87 122/71 98.5 Lab Results Laboratory Tests Test 12/01/16 06:20 12/02/16 06:00 White Blood Count 14.2x10^3/uL (4.0-11.0) Red Blood Count 2.10x10^6/uL (3.50-5.40) Hemoglobin 7.1g/dL (12.0-15.5) 7.4g/dL (12.0-15.5) Hematocrit 20.7% (36.0-47.0) 21.7% (36.0-47.0) Mean Corpuscular Volume 99fL (79-100) Mean Corpuscular Hemoglobin 34pg (25-35) Mean Corpuscular Hemoglobin Concent 34g/dL (31-37) 34g/dL (31-37) Red Cell Distribution Width 25.2% (11.5-14.5) Platelet Count 329x10^3/uL (140-400) Neutrophils (%) (Auto) 48% (31-73) Lymphocytes (%) (Auto) 35% (24-48) Monocytes (%) (Auto) 12% (0-9) Eosinophils (%) (Auto) 4% (0-3) Basophils (%) (Auto) 1% (0-3) Neutrophils # (Auto) 6.8x10^3uL (1.8-7.7) Lymphocytes # (Auto) 5.0x10^3/uL (1.0-4.8) Monocytes # (Auto) 1.6x10^3/uL (0.0-1.1) Eosinophils # (Auto) 0.6x10^3/uL (0.0-0.7) Basophils # (Auto) 0.1x10^3/uL (0.0-0.2) Reticulocyte Count (auto) 8.2% (0.5-2.5) 5.3% (0.5-2.5) Sodium Level 141mmol/L (136-145) Potassium Level 4.0mmol/L (3.5-5.1) Chloride Level 109mmol/L (98-107) Carbon Dioxide Level 24mmol/L (21-32) Anion Gap 8 (6-14) Blood Urea Nitrogen 7mg/dL (7-20) Creatinine 0.5mg/dL (0.6-1.0) Estimated GFR (Cockcroft-Gault) 185.0 Glucose Level 86mg/dL (70-99) Calcium Level 8.5mg/dL (8.5-10.1) Laboratory Tests Test 12/02/16 06:00 Hemoglobin 7.4g/dL (12.0-15.5) Hematocrit 21.7% (36.0-47.0) Mean Corpuscular Hemoglobin Concent 34g/dL (31-37) Reticulocyte Count (auto) 5.3% (0.5-2.5) Brief Hospital Course Ms. Gabriel is a 21 old AA female with sickle cell came in with crisis, Retic ct highest was 14, HEme onc advises no BT unless hgb < 6 bec of high ferritin levels (iron overload),. eventually needed few units bec retic ct cont to be high and hgb dropping at low 6,. After BT, hgb [address] down to 5. Ready for dc. 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 Mccurdy in last admit and hydroxyurea 1000 mg PO qD Pt seen and examined [place] 35 mins Discharge Information Condition at Discharge: Improved, Stable Disposition/Orders: D/C to Home Scheduled Folic Acid (Folic Acid) 1 TAB PO DAILY Hydroxyurea (Hydroxyurea) 1,000 MG PO DAILY Prednisone (Prednisone) 10 MG PO UD Scheduled PRN Acetaminophen (Tylenol) 2 TAB PO QID PRN PRN PAIN Diphenhydramine Hcl (Benadryl) 50 MG PO Q6HRS PRN PRN ANXIETY / AGITATION Hydromorphone Hcl (Dilaudid) 1 TAB PO Q4HRS PRN PRN PAIN Ibuprofen (Ibuprofen) 200 MG PO PRN Q6HRS PRN PRN INFLAMMATION Zolpidem Tartrate (Ambien) 1 TAB PO QHS PRN PRN sleep JOHN HEWITT MD Dec 02, 2016 14:01
== END 2016-12-02 16:30 | disposition home or self-care (01) | DRG 812 ==
LOC: ER 00:49 → ED HOLD 05:02 → 6 SOUTH 10:50
PROVIDERS: ADMIT Internal Medicine; ATTEND Internal Medicine
PROC: 02H633Z Insertion of Infusion Device into Right Atrium, Percutaneous Approach (ICD-10-PCS; 2016-11-28)
PROC: B2141ZZ Fluoroscopy of Right Heart using Low Osmolar Contrast (ICD-10-PCS; 2016-11-28)
PROC: B244ZZZ Ultrasonography of Right Heart (ICD-10-PCS; 2016-11-28)
PROC: 30233N1 Transfusion of Nonautologous Red Blood Cells into Peripheral Vein, Percutaneous Approach (ICD-10-PCS; principal; 2016-11-30)
DX: D57.00 Hb-SS disease with crisis, unspecified (principal); F11.20 Opioid dependence, uncomplicated; F17.210 Nicotine dependence, cigarettes, uncomplicated; F41.9 Anxiety disorder, unspecified; G47.00 Insomnia, unspecified; G89.29 Other chronic pain; Z91.19 Patient's noncompliance with other medical treatment and regimen; Z88.1 Allergy status to other antibiotic agents
CPT/HCPCS: 36415; 36569; 76937; 77001; 80048; 82728; 85007; 85014; 85018; 85027; 85045; 86850; 86900; 86901; 86902; 86922; 96361; 96372; 96374; 96376; C1751; C1892; J0696; J1170; J2550; J7030; J7512; P9016; Q0163; 99285-25

== ENCOUNTER 2016-12-22 15:45 | Emergency (ER) | payer OTHER ==
[~2016-12-22] VITALS: Ht 170.2 cm; Wt 59.9 kg
[~2016-12-22 15:45] MED LIST changes: +OXYC10TA PO
[2016-12-22 15:56] VITALS: BP 111/63
[2016-12-22] MEDS ORDERED: IV NORMAL SALINE 1000ML BAG 1,000 ML IV ONE (16:15)
[2016-12-22] MEDS ORDERED: ONDANSETRON PF 4 MG/2 ML VIAL. IV ONE (16:15)
[2016-12-22] MEDS ORDERED: HYDROMORPHONE 2 MG/ML VIAL. IV ONE (16:15)
[2016-12-22] MEDS ORDERED: HYDROMORPHONE 2 MG/ML VIAL. IM ONE (17:00)
[2016-12-22] MEDS ORDERED: OXYC-323 PO (17:28)
--- NOTE | 2016-12-22 17:28 | PHYS DOC ---
Past Medical History Past Medical History: Sickle Cell Disease Additional Past Medical Histor: sickle cell anemia Past Surgical History: Alcohol Use: None Drug Use: None Adult General Chief Complaint Chief Complaint: PAIN CONTROL HPI HPI 21-year-old female with history of sickle cell disease presents with lower leg pain that she states is typical of her previous sickle pain. She denies any fever chills or sweats. She's not had any chest pain or shortness of breath. She denies hemoptysis. She has not recently been sick. She does states she's had a mild headache that she describes as a tension headache. She denies any lateralizing neurologic weakness. [] Review of Systems Review of Systems Constitutional: Denies fever or chills [] Eyes: Denies change in visual acuity, redness, or eye pain [] HENT: Denies nasal congestion or sore throat [] Respiratory: Denies cough or shortness of breath [] Cardiovascular: No additional information not addressed in HPI [] GI: Denies abdominal pain, nausea, vomiting, bloody stools or diarrhea [] : Denies dysuria or hematuria [] Musculoskeletal: Lower surety pain as described above Integument: Denies rash or skin lesions [] Neurologic: Denies headache, focal weakness or sensory changes [] Endocrine: Denies polyuria or polydipsia [] Current Medications Current Medications Current Medications Medications (Trade) Dose Ordered Sig/Vanessa Start Time Stop Time Status Last Admin Dose Admin Hydromorphone HCl (Dilaudid) 2 mg 1X ONCE 12/22/16 17:00 12/22/16 17:01 DC 12/22/16 17:00 2 MG Ondansetron HCl (Zofran) 4 mg 1X ONCE 12/22/16 16:15 12/22/16 16:16 DC Sodium Chloride (Iv Sodium Chloride 0.9% 1000ml Bag) 1,000 ml @ 1,000 mls/hr 1X ONCE 12/22/16 16:15 12/22/16 17:14 DC Allergies Allergies Allergies Coded Allergies Type Severity Reaction Last Updated Verified acetaminophen Allergy Intermediate ITCHING 09/02/16 Yes I S O L A T I O N *CONTACT* Allergy Unknown 09/02/16 Yes Physical Exam Physical Exam Constitutional: Well developed, well nourished, no acute distress, non-toxic appearance. [] HENT: Normocephalic, atraumatic, bilateral external ears normal, oropharynx moist, no oral exudates, nose normal. [] Eyes: PERRLA, EOMI, conjunctiva normal, no discharge. [] Neck: Normal range of motion, no tenderness, supple, no stridor. [] Cardiovascular:Heart rate regular rhythm, no murmur [] Lungs & Thorax: Bilateral breath sounds clear to auscultation [] Abdomen: Bowel sounds normal, soft, no tenderness, no masses, no pulsatile masses. [] Skin: Warm, dry, no erythema, no rash. [] Back: No tenderness, no CVA tenderness. [] Extremities: No tenderness, no cyanosis, no clubbing, ROM intact, no edema. [] Neurologic: Alert and oriented X 3, normal motor function, normal sensory function, no focal deficits noted. [] Psychologic: Affect normal, judgement normal, mood normal. [] Current Patient Data Vital Signs Vital Signs Date Time Temp Pulse Resp B/P Pulse Ox O2 Delivery O2 Flow Rate FiO2 12/22/16 15:56 98.5 98 18 100 Room Air 98.5 EKG EKG [] Radiology/Procedures Radiology/Procedures [] Course & Med Decision Making Course & Med Decision Making Pertinent Labs and Imaging studies reviewed. (See chart for details) [ED course: Evaluation reveals a 21-year-old female who really did not look to be in much distress at all. She was given an IM shot of medication here to help alleviate her symptoms. Multiple attempts at IV were unsuccessful. Patient felt much better after the IM shot of medication.] Dragon Disclaimer Dragon Disclaimer This electronic medical record was generated, in whole or in part, using a voice recognition dictation system. Departure Departure Impression: Primary Impression: Sickle cell pain crisis Disposition: HOME, SELF-CARE Condition: STABLE Referrals: NO PCP (PCP) Patient Instructions: Sickle Cell Pain Crisis Additional Instructions: Thank you for allowing us to participate in your care today. Followup with your primary care physician in 3 days if your symptoms do not improve. Return to the emergency department you have any new or concerning findings. This should be evaluated by the primary care physician and any necessary consulting services for continued management within a few days after discharge. Return to emergency room if you have any new or concerning symptoms including but not limited to fever, chills, nausea, vomiting, intractable pain, any new rashes, chest pain, shortness of air, uncontrolled bleeding, difficulty breathing, and/or vision loss. You may have been prescribed medication that can change in your level of thinking and ability to operate machinery. These medications include hydrocodone and Ativan. Also, Benadryl has been known to do this as well. Be sure to check with your pharmacist and ask if the medications you've prescribed can affect your level of consciousness. I recommend not operating heavy machinery or driving while on medication such as these. Scripts Oxycodone/Apap 5-325 (Percocet 5-325 Mg Tablet)1 Each Tablet1 Tab PO PRN Q6HRS PRN PAIN #14 TAB Prov:BORIS BARRERA DO 12/22/16 BORIS BARRERA DO Dec 22, 2016 17:28
[2016-12-22 17:35] LABS: BASO # 0.1 x10^3/uL (0.0-0.2); BASO % 1 % (0-3); EOS % 3 % (0-3); HEMOGLOBIN 7.1 g/dL (12.0-15.5); LYMPH # 3.9 x10^3/uL (1.0-4.8); LYMPH % 23 % (24-48); MEAN CORPUSCULAR HEMOGLOBIN 35 pg (25-35); MEAN CORPUSCULAR HGB CONC 35 g/dL (31-37); MEAN CORPUSCULAR VOLUME 101 fL (79-100); MONO % 12 % (0-9); NEUT % 61 % (31-73); PLATELET COUNT 413 x10^3/uL (140-400); RED BLOOD COUNT 2.02 x10^6/uL (3.50-5.40); RED CELL DISTRIBUTION WIDTH 21.8 % (11.5-14.5); RETIC COUNT 5.9 % (0.5-2.5); WHITE BLOOD COUNT 16.6 x10^3/uL (4.0-11.0)
[2016-12-22 17:37] LABS: HEMATOCRIT 20.4 % (36.0-47.0)
[2016-12-22 17:44] LABS: CALCIUM 9.2 mg/dL (8.5-10.1); GFR 83.1; POTASSIUM 4.3 mmol/L (3.5-5.1)
[2016-12-22 18:43] LABS: OVALOCYTES OCC; PLT ESTIMATE INCREASED (ADEQUATE); SCHISTOCYTES FEW; STOMATOCYTES OCC
[2016-12-22 18:44] LABS: HYPOCHROMIA SLIGHT; SICKLE CELLS MOD
== END 2016-12-22 17:36 | disposition home or self-care (01) ==
LOC: ER 15:45
DX: D57.00 Hb-SS disease with crisis, unspecified (principal); G44.209 Tension-type headache, unspecified, not intractable; Z88.6 Allergy status to analgesic agent; Z91.041 Radiographic dye allergy status
CPT/HCPCS: 36415; 80048; 85007; 85027; 85045; 96372; 99284; J1170

== ENCOUNTER 2016-12-30 10:05 | Inpatient (IN) | payer OTHER ==
[~2016-12-30] VITALS: Ht 170.2 cm; Wt 60.4 kg
[~2016-12-30 10:05] MED LIST changes: +OXYC-323 PO
[2016-12-30] MEDS ORDERED: HYDROMORPHONE 2 MG/ML VIAL. IM ONE (10:15)
[2016-12-30] MEDS ORDERED: ONDANSETRON PF 4 MG/2 ML VIAL. IV ONE (11:00)
[2016-12-30] MEDS ORDERED: HYDROMORPHONE 2 MG/ML VIAL. IV ONE ×2 (11:00→11:45)
[2016-12-30] MEDS ORDERED: IV NORMAL SALINE 1000ML BAG 1,000 ML IV ONE (11:00)
[2016-12-30 11:21] LABS: CALCIUM 8.8 mg/dL (8.5-10.1); CREATININE 0.7 mg/dL (0.6-1.0); GFR 125.5; POTASSIUM 3.3 mmol/L (3.5-5.1)
--- NOTE | 2016-12-30 11:37 | PHYS DOC ---
Past Medical History Past Medical History: Sickle Cell Disease Additional Past Medical Histor: sickle cell anemia Past Surgical History: Alcohol Use: None Drug Use: None Adult General Chief Complaint Chief Complaint: PAIN CONTROL HPI HPI 21-year-old female with known history of sickle cell disease with no current primary care doctor presenting with significant pain in her usual pain pattern that she has. She is in no acute distress upon arrival. She states she has been unable to acquire primary care doctor and does not take any medications. She states she is normally prescribed oral Dilaudid. Patient was recently seen one week prior for her symptoms and prescribed Review of Systems Review of Systems Constitutional: Denies fever or chills [] Eyes: Denies change in visual acuity, redness, or eye pain [] HENT: Denies nasal congestion or sore throat [] Respiratory: Denies cough or shortness of breath [] Cardiovascular: No additional information not addressed in HPI [] GI: Denies abdominal pain, nausea, vomiting, bloody stools or diarrhea [] : Denies dysuria or hematuria [] Musculoskeletal: Denies back pain or joint pain [] Integument: Denies rash or skin lesions [] Neurologic: Denies headache, focal weakness or sensory changes [] Endocrine: Denies polyuria or polydipsia [] Current Medications Current Medications Current Medications Medications (Trade) Dose Ordered Sig/[facility] Start Time Stop Time Status Last Admin Dose Admin Hydromorphone HCl (Dilaudid) 1 mg PRN Q2HR PRN 12/30/16 13:45 Ondansetron HCl (Zofran) 4 mg 1X ONCE 12/30/16 11:00 12/30/16 11:01 DC 12/30/16 10:52 4 MG Ondansetron HCl 4 mg 4 mg PRN Q8HRS PRN 12/30/16 13:45 12/31/16 13:44 Sodium Chloride (Iv Sodium Chloride 0.9% 1000ml Bag) 1,000 ml @ 125 mls/hr Q8H 12/30/16 13:31 12/31/16 13:30 Allergies Allergies Allergies Coded Allergies Type Severity Reaction Last Updated Verified acetaminophen Allergy Intermediate ITCHING 09/02/16 Yes Physical Exam Physical Exam Constitutional: Well developed, well nourished, no acute distress, non-toxic appearance. [] HENT: Normocephalic, atraumatic, bilateral external ears normal, oropharynx moist, no oral exudates, nose normal. [] Eyes: PERRLA, EOMI, conjunctiva normal, no discharge. [] Neck: Normal range of motion, no tenderness, supple, no stridor. [] Cardiovascular:Heart rate regular rhythm, no murmur [] Lungs & Thorax: Bilateral breath sounds clear to auscultation [] Abdomen: Bowel sounds normal, soft, no tenderness, no masses, no pulsatile masses. [] Skin: Warm, dry, no erythema, no rash. [] Back: No tenderness, no CVA tenderness. [] Extremities: No tenderness, no cyanosis, no clubbing, ROM intact, no edema. [] Neurologic: Alert and oriented X 3, normal motor function, normal sensory function, no focal deficits noted. [] Psychologic: Affect normal, judgement normal, mood normal. [] Current Patient Data Vital Signs Vital Signs Date Time Temp Pulse Resp B/P Pulse Ox O2 Delivery O2 Flow Rate FiO2 12/30/16 10:05 97.9 90 18 113/69 97 Room Air 97.9 Lab Values Laboratory Tests Test 12/30/16 10:35 White Blood Count 14.7x10^3/uL (4.0-11.0) H Red Blood Count 2.01x10^6/uL (3.50-5.40) L Hemoglobin 7.4g/dL (12.0-15.5) L Hematocrit 21.3% (36.0-47.0) L Mean Corpuscular Volume 106fL (79-100) H Mean Corpuscular Hemoglobin 37pg (25-35) H Mean Corpuscular Hemoglobin Concent 35g/dL (31-37) Red Cell Distribution Width 22.9% (11.5-14.5) H Platelet Count 386x10^3/uL (140-400) Neutrophils (%) (Auto) 50% (31-73) Lymphocytes (%) (Auto) 35% (24-48) Monocytes (%) (Auto) 11% (0-9) H Eosinophils (%) (Auto) 3% (0-3) Basophils (%) (Auto) 1% (0-3) Neutrophils # (Auto) 7.3x10^3uL (1.8-7.7) Lymphocytes # (Auto) 5.2x10^3/uL (1.0-4.8) H Monocytes # (Auto) 1.7x10^3/uL (0.0-1.1) H Eosinophils # (Auto) 0.5x10^3/uL (0.0-0.7) Basophils # (Auto) 0.1x10^3/uL (0.0-0.2) Platelet Estimate Adequate (ADEQUATE) Polychromasia Present Poikilocytosis Present Anisocytosis Present Microcytosis Present Macrocytosis Present Sickle Cells Present Ovalocytes Present [place] Bodies Present Reticulocyte Count (auto) 8.3% (0.5-2.5) H Sodium Level 143mmol/L (136-145) Potassium Level 3.3mmol/L (3.5-5.1) L Chloride Level 107mmol/L (98-107) Carbon Dioxide Level 23mmol/L (21-32) Anion Gap 13 (6-14) Blood Urea Nitrogen 6mg/dL (7-20) L Creatinine 0.7mg/dL (0.6-1.0) Estimated GFR (Cockcroft-Gault) 125.5 Glucose Level 94mg/dL (70-99) Calcium Level 8.8mg/dL (8.5-10.1) Laboratory Tests 12/30/16 10:35 Laboratory Tests 12/30/16 10:35 EKG EKG [] Radiology/Procedures Radiology/Procedures [] Course & Med Decision Making Course & Med Decision Making Pertinent Labs and Imaging studies reviewed. (See chart for details) 21-year-old female who's having significant sickle cell pain that she typically has was given 2 doses of Dilaudid in the department and still saying she has severe pain requesting admission. Patient does not have any follow-up for her sickle cell disease. Her hemoglobin today is 7.4 which is about baseline for her. Her reticulocyte count is also approximately what it has been in the past. I counseled her at length that we'll need a close follow-up for her symptoms but I'm willing to admit her for continued pain control at this time. She'll be continued to be given fluids and Dilaudid. Dragon Disclaimer Dragon Disclaimer This electronic medical record was generated, in whole or in part, using a voice recognition dictation system. Departure Departure Impression: Primary Impression: Sickle cell pain crisis Disposition: ADMITTED INPATIENT Admitting Physician: Lucrecia Lema Condition: STABLE Referrals: NO PCP (PCP) LUIS ENRIQUE GARCIA DO Dec 30, 2016 11:37
[2016-12-30 12:21] LABS: PLT ESTIMATE ADEQUATE (ADEQUATE)
[2016-12-30 12:22] LABS: ANISOCYTOSIS PRESENT; MICROCYTOSIS PRESENT; POIKILOCYTOSIS PRESENT; POLYCHROMASIA PRESENT
[2016-12-30 12:23] LABS: HOWELL-JOLLY BODIES PRESENT; OVALOCYTES PRESENT; SICKLE CELLS PRESENT
[2016-12-30 12:24] LABS: BASO # 0.1 x10^3/uL (0.0-0.2); BASO % 1 % (0-3); EOS % 3 % (0-3); HEMATOCRIT 21.3 % (36.0-47.0); HEMOGLOBIN 7.4 g/dL (12.0-15.5); LYMPH # 5.2 x10^3/uL (1.0-4.8); LYMPH % 35 % (24-48); MEAN CORPUSCULAR HEMOGLOBIN 37 pg (25-35); MEAN CORPUSCULAR HGB CONC 35 g/dL (31-37); MEAN CORPUSCULAR VOLUME 106 fL (79-100); MONO % 11 % (0-9); NEUT % 50 % (31-73); PLATELET COUNT 386 x10^3/uL (140-400); RED BLOOD COUNT 2.01 x10^6/uL (3.50-5.40); RED CELL DISTRIBUTION WIDTH 22.9 % (11.5-14.5); WHITE BLOOD COUNT 14.7 x10^3/uL (4.0-11.0)
[2016-12-30 13:16] LABS: RETIC COUNT 8.3 % (0.5-2.5)
[2016-12-30] MEDS ORDERED: IV NORMAL SALINE 1000ML BAG 1,000 ML IV SCH (13:31)
[2016-12-30] MEDS ORDERED: ONDANSETRON PF 4 MG/2 ML VIAL. IV PRN (13:45)
[2016-12-30] MEDS ORDERED: OXYCODONE/APAP 10/325 TABLET. PO PRN (14:15)
--- NOTE | 2016-12-30 14:22 | ACF ---
Admission Forms Criteria PAIN MANAGEMENT [facility] Clinical Indications for Admission to Inpatient Care (Place 'X' for any and all applicable criteria): Hospital admission is needed for appropriate care of the patient because of ANY ONE of the following are present (1)(2)(3)(4)(5): [X]I. Severe pain requiring acute inpatient management as indicated by ALL of the following (2)(5)(10): [X]a) Continuous or frequent (eg, every 2 to 4 hours) parenteral analgesics required [A] [X]b) Necessity (ie, alternative approaches not effective) for analgesic regimen that can only be performed or initiated in inpatient setting [ ]II. Pain causing debilitation to the point of inability to function or be supported at any other level of care [ ]III. Severe side effects from pain medications as indicated by ANY ONE of the following (12)(13)(14)(15): [ ]a) Uncontrollable seizures [ ]b) Cardiac arrhythmias [ ]c) Severe volume depletion [ ]d) Vomiting that is uncontrollable at any other level of care [ ]e) Altered mental status (Dianne coma scale score less than 13) [ ]f) Obstipation with inadequate GI function to maintain nutrition [ ]g) Dehydration that is severe or persistent The original [employer] content created by [employer] has been revised. The portions of the content which have been revised are identified through the use of italic text or in bold, and [employer] has neither reviewed nor approved the modified material. All other unmodified content is copyright [employer]. Please see references footnoted in the original [employer] edition 2016 Admission Criteria Met?: Yes HILTON RODRIGUEZ Dec 30, 2016 14:22
[2016-12-30 15:00] VITALS: BP 96/42
[2016-12-30] MEDS: MORPHINE ER 15 MG TABLET.ER PO SCH ×2 (15:42→20:43)
--- NOTE | 2016-12-30 16:53 | PDOC1 ---
History and Physical Date of Admission Date of Admission DATE: 12/30/16 TIME: 16:40 Identification/Chief Complaint Chief Complaint pain Source Source: Chart review, Patient History of Present Illness History of Present Illness Landy is a 21-year-old female well known here. Juanitot admits for Sickle cell pain, pain crisis, unable to est. primary care, or find anyone to follow with. She lives near [facility], comes here by ambulance. She refuses to do to [facility] for clinic percocets 5 from prior admit ran out this AM. then sever pain, she requests dilaudid for pain. 07/21 pain reported Past Medical History Cardiovascular: No pertinent hx Pulmonary: No pertinent hx GI: No pertinent hx Heme/Onc: No pertinent hx, Sickle cell disease Musculoskeletal: low back pain ENT: No pertinent hx Renal/: No pertinent hx Past Surgical History Past Surgical History: Family History Family History: No Significant Social History Smoke: No ALCOHOL: none Drugs: None Current Problem List Problem List Problems Medical Problems: (1) Sickle cell pain crisis Status: Acute Problems: Current Medications Current Medications Current Medications Hydromorphone HCl (Dilaudid) 2 mg 1X ONCE IM ; Start 12/30/16 at 10:15; Stop at 10:16; Status DC Hydromorphone HCl (Dilaudid) 1 mg 1X ONCE IV Last administered on 12/30/16 10 :51; Start 12/30/16 at 11:00; Stop 12/30/16 at 11:01; Status DC Ondansetron HCl 4 mg 4 mg 1X ONCE IV Last administered on 12/30/16 10:52; Start 12/30/16 at 11:00; Stop 12/30/16 at 11:01; Status DC Sodium Chloride (Iv Sodium Chloride 0.9% 1000ml Bag) 1,000 ml @ 1,000 mls/hr 1X ONCE IV Last administered on 12/30/16 10:52; Start 12/30/16 at 11:00; Stop 12/30/16 at 11:59; Status DC Hydromorphone HCl (Dilaudid) 1 mg 1X ONCE IV Last administered on 12/30/16 11 :58; Start 12/30/16 at 11:45; Stop 12/30/16 at 11:46; Status DC Ondansetron HCl 4 mg 4 mg PRN Q8HRS PRN IV NAUSEA/VOMITING; Start 12/30/16 at 13:45; Stop 12/31/16 at 13:44 Sodium Chloride (Iv Sodium Chloride 0.9% 1000ml Bag) 1,000 ml @ 125 mls/hr Q8H IV Last administered on 12/30/16 15:43; Start 12/30/16 at 13:31; Stop at 13:30 Hydromorphone HCl (Dilaudid) 1 mg PRN Q2HR PRN IV PAIN; Start 12/30/16 at 13:45 Morphine Sulfate (Ms Contin) 15 mg BID PO Last administered on 12/30/16 15:42 ; Start 12/30/16 at 14:15 Oxycodone/ Acetaminophen (Percocet 10/325) 1 tab PRN Q4HRS PRN PO pain; Start 12/30/16 at 14:15 Active Scripts Active Percocet 5-325 Mg Tablet (Oxycodone/Acetaminophen) 1 Each Tablet 1 Tab PO PRN Q6HRS PRN Oxycodone Hcl 10 Mg Tablet 1 Tab PO QID Methadone Hcl 10 Mg Tablet 1 Tab PO TID Dilaudid (Hydromorphone Hcl) 4 Mg Tablet 1 Tab PO Q4HRS PRN Tylenol (Acetaminophen) 325 Mg Tablet 2 Tab PO QID PRN Benadryl (Diphenhydramine Hcl) 25 Mg Capsule 50 Mg PO Q6HRS PRN Ambien (Zolpidem Tartrate) 5 Mg Tablet 1 Tab PO QHS PRN Prednisone 10 Mg Tablet 10 Mg PO UD Take 3 tablets by mouth daily for 3 days, then take 2 tablets by mouth daily for 3 days, then take 1 tablet by mouth daily for 3 days, then stop. Ibuprofen 200 Mg Tablet 200 Mg PO PRN Q6HRS PRN Folic Acid 1 Mg Tablet 1 Tab PO DAILY Hydroxyurea 500 Mg Capsule 1,000 Mg PO DAILY Allergies Allergies: Coded Allergies: acetaminophen (Verified Allergy, Intermediate, ITCHING, 09/02/16) ROS General: YES: Appetite, Fatigue, Malaise, No: Chills, Night Sweats, Other PSYCHOLOGICAL ROS: YES: Irritablity Eyes: No Blurry vision, No Decreased vision, No Double vision, No Dry eyes, No Excessive tearing, No Eye Pain, No Itchy Eyes, No Loss of vision, No Other, No Photophobia, No Scotomata, No Uses contacts, No Uses glasses HEENT: YES: Heacaches Respiratory: No: Cough, Hemoptysis, Orthopnea, Other, Pleuritic Pain, SOB with excertion, Shortness of breath, Sputum Changes, Stridor, Tachypnea, Wheezing Cardiovascular: No Chest Pain, No Edema, No Lt Headedness, No Orthopnea, No Other, No Palpitations, No Paroxysmal Noc. Dyspnea Gastrointestinal: No Abdominal Pain, No Constipation, No Diarrhea, No Hematochezia, No Melena, No Nausea, No Other, No Vomiting Genitourinary: No , No , No , No , No , No , No , No Discharge, No Dysuria, No Flank Pain, No Frequency, No Hematuria, No Incontinence, No Other, No Pain, No Retention, No Urgency Musculoskeletal: Yes Joint Pain, Yes Muscle Pain, Yes Pain In: Neurological: No Behavorial Changes, No Bowel/Bladder ControlChng, No Confusion , No Dizziness, No Gait Disturbance, No Headaches, No Impaired Coord/balance, No Memory Loss, No Numbness/Tingling, No Other, No Seizures, No Speech Problems , No Tremors, No Visual Changes, No Weakness Skin: Yes Dry Skin, No Acne, No Eczema, No Hair Changes, No Lumps, No Mole Changes, No Mottling, No Nail Changes, No Other, No Pruritus, No Rash, No Skin Lesion Changes Physical Exam General: Alert, Cooperative, moderate distress, Other (pain, wincing) HEENT: EOMI, Mucous membr. moist/pink Lungs: Clear to auscultation, Normal air movement Heart: S1S2, no murmurs Abdomen: Normal bowel sounds, Soft (tender, diffuse), Other Rectal Exam: not examined Extremities: No clubbing, No edema Skin: No rashes, No breakdown Neuro: Normal speech, Normal tone, Sensation intact Psych/Mental Status: Mood NL Vitals Vitals Vital Signs Date Time Temp Pulse Resp B/P Pulse Ox O2 Delivery O2 Flow Rate FiO2 12/30/16 16:06 Room Air 12/30/16 15:00 97.8 62 16 96/42 99 97.8 Labs Labs Laboratory Tests Test 12/30/16 10:35 White Blood Count 14.7x10^3/uL (4.0-11.0) Red Blood Count 2.01x10^6/uL (3.50-5.40) Hemoglobin 7.4g/dL (12.0-15.5) Hematocrit 21.3% (36.0-47.0) Mean Corpuscular Volume 106fL (79-100) Mean Corpuscular Hemoglobin 37pg (25-35) Mean Corpuscular Hemoglobin Concent 35g/dL (31-37) Red Cell Distribution Width 22.9% (11.5-14.5) Platelet Count 386x10^3/uL (140-400) Neutrophils (%) (Auto) 50% (31-73) Lymphocytes (%) (Auto) 35% (24-48) Monocytes (%) (Auto) 11% (0-9) Eosinophils (%) (Auto) 3% (0-3) Basophils (%) (Auto) 1% (0-3) Neutrophils # (Auto) 7.3x10^3uL (1.8-7.7) Lymphocytes # (Auto) 5.2x10^3/uL (1.0-4.8) Monocytes # (Auto) 1.7x10^3/uL (0.0-1.1) Eosinophils # (Auto) 0.5x10^3/uL (0.0-0.7) Basophils # (Auto) 0.1x10^3/uL (0.0-0.2) Platelet Estimate Adequate (ADEQUATE) Polychromasia Present Poikilocytosis Present Anisocytosis Present Microcytosis Present Macrocytosis Present Sickle Cells Present Ovalocytes Present Shelby-Marvin Bodies Present Reticulocyte Count (auto) 8.3% (0.5-2.5) Sodium Level 143mmol/L (136-145) Potassium Level 3.3mmol/L (3.5-5.1) Chloride Level 107mmol/L (98-107) Carbon Dioxide Level 23mmol/L (21-32) Anion Gap 13 (6-14) Blood Urea Nitrogen 6mg/dL (7-20) Creatinine 0.7mg/dL (0.6-1.0) Estimated GFR (Cockcroft-Gault) 125.5 Glucose Level 94mg/dL (70-99) Calcium Level 8.8mg/dL (8.5-10.1) Laboratory Tests Test 12/30/16 10:35 White Blood Count 14.7x10^3/uL (4.0-11.0) Red Blood Count 2.01x10^6/uL (3.50-5.40) Hemoglobin 7.4g/dL (12.0-15.5) Hematocrit 21.3% (36.0-47.0) Mean Corpuscular Volume 106fL (79-100) Mean Corpuscular Hemoglobin 37pg (25-35) Mean Corpuscular Hemoglobin Concent 35g/dL (31-37) Red Cell Distribution Width 22.9% (11.5-14.5) Platelet Count 386x10^3/uL (140-400) Neutrophils (%) (Auto) 50% (31-73) Lymphocytes (%) (Auto) 35% (24-48) Monocytes (%) (Auto) 11% (0-9) Eosinophils (%) (Auto) 3% (0-3) Basophils (%) (Auto) 1% (0-3) Neutrophils # (Auto) 7.3x10^3uL (1.8-7.7) Lymphocytes # (Auto) 5.2x10^3/uL (1.0-4.8) Monocytes # (Auto) 1.7x10^3/uL (0.0-1.1) Eosinophils # (Auto) 0.5x10^3/uL (0.0-0.7) Basophils # (Auto) 0.1x10^3/uL (0.0-0.2) Platelet Estimate Adequate (ADEQUATE) Polychromasia Present Poikilocytosis Present Anisocytosis Present Microcytosis Present Macrocytosis Present Sickle Cells Present Ovalocytes Present Shelby-Marvin Bodies Present Reticulocyte Count (auto) 8.3% (0.5-2.5) Sodium Level 143mmol/L (136-145) Potassium Level 3.3mmol/L (3.5-5.1) Chloride Level 107mmol/L (98-107) Carbon Dioxide Level 23mmol/L (21-32) Anion Gap 13 (6-14) Blood Urea Nitrogen 6mg/dL (7-20) Creatinine 0.7mg/dL (0.6-1.0) Estimated GFR (Cockcroft-Gault) 125.5 Glucose Level 94mg/dL (70-99) Calcium Level 8.8mg/dL (8.5-10.1) VTE Prophylaxis Ordered VTE Prophylaxis Devices: Yes VTE Pharmacological Prophylaxi: Yes Assessment/Plan Assessment/Plan acute on chronic pain sickle cell disease pain crisis, acute on chronic narcotic tolerance and dependence SIRS, not infectious, reactive leukocytosis, hypokalemia, no primary care, lack of compliance to est. followup Patient seems precontemplation on behavior that would be more productive on avoiding the hospital. 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
[2016-12-30] MEDS ORDERED: DOCUSATE SODIUM 100 MG CAPSULE PO PRN (17:00)
[2016-12-30] MEDS ORDERED: MAGNESIUM SULFATE 2GM 50 ML IV ONE (17:00)
[2016-12-30] MEDS ORDERED: ACETAMINOPHEN 325 MG TABLET. PO PRN (17:00)
[2016-12-30] MEDS ORDERED: POLYETHYLENE GLYCOL 3350 17 GM PACKET. PO PRN (17:00)
[2016-12-30] MEDS ORDERED: POTASSIUM CHLORIDE 20 MEQ TABLET.ER. PO ONE (17:00)
[2016-12-30] MEDS ORDERED: DIPHENHYDRAMINE HCL 25 MG CAPSULE PO PRN (17:00)
[2016-12-30] MEDS: IV 1/2 NORMAL SALINE 1,000 ML IV SCH (17:36)
[2016-12-30] MEDS: HYDROMORPHONE 2 MG/ML VIAL. IV PRN ×3 (17:38→23:58)
[2016-12-30 19:30] VITALS: BP 110/78
[2016-12-30] MEDS: ENOXAPARIN 40 MG/0.4 ML DISP.SYRIN. SQ SCH (20:42)
[2016-12-30] MEDS: ZOLPIDEM 5 MG TABLET. PO PRN ×2 (20:43→21:50)
[2016-12-31] MEDS: IBUPROFEN 200 MG TABLET PO PRN ×2 (00:51→17:02)
[2016-12-31] MEDS: IV 1/2 NORMAL SALINE 1,000 ML IV SCH ×4 (00:51→16:54)
[2016-12-31] MEDS: HYDROMORPHONE 2 MG/ML VIAL. IV PRN ×3 (02:09→06:23)
[2016-12-31 03:30] VITALS: BP 113/68
[2016-12-31 07:19] VITALS: BP 104/69
[2016-12-31] MEDS ORDERED: POTASSIUM CHLORIDE 20 MEQ TABLET.ER. PO SCH (08:00)
[2016-12-31] MEDS: FOLIC ACID 1 MG TABLET PO SCH (09:06)
[2016-12-31] MEDS: HYDROXYUREA 500 MG CAPSULE PO SCH (09:07)
[2016-12-31] MEDS: MORPHINE ER 15 MG TABLET.ER PO SCH (09:09)
[2016-12-31] MEDS: HYDROMORPHONE 4 MG TABLET. PO PRN ×3 (10:32→19:59)
[2016-12-31 10:34] LABS: BASO # 0.1 x10^3/uL (0.0-0.2); BASO % 1 % (0-3); EOS % 3 % (0-3); LYMPH # 4.7 x10^3/uL (1.0-4.8); LYMPH % 27 % (24-48); MEAN CORPUSCULAR HEMOGLOBIN 38 pg (25-35); MEAN CORPUSCULAR HGB CONC 36 g/dL (31-37); MEAN CORPUSCULAR VOLUME 105 fL (79-100); MONO % 9 % (0-9); NEUT % 62 % (31-73); PLATELET COUNT 308 x10^3/uL (140-400); RED BLOOD COUNT 1.79 x10^6/uL (3.50-5.40); RED CELL DISTRIBUTION WIDTH 24.1 % (11.5-14.5); WHITE BLOOD COUNT 17.6 x10^3/uL (4.0-11.0)
[2016-12-31 10:36] LABS: HEMATOCRIT 18.8 % (36.0-47.0); HEMOGLOBIN 6.8 g/dL (12.0-15.5)
[2016-12-31 10:51] VITALS: BP 104/63
[2016-12-31 10:51] LABS: ALBUMIN 3.4 g/dL (3.4-5.0); ALBUMIN/GLOBULIN RATIO 0.9 (1.0-1.7); CALCIUM 8.7 mg/dL (8.5-10.1); CREATININE 0.6 mg/dL (0.6-1.0); GFR 149.9; TOTAL PROTEIN 7.2 g/dL (6.4-8.2)
[2016-12-31 10:53] LABS: POTASSIUM 4.3 mmol/L (3.5-5.1)
--- NOTE | 2016-12-31 12:18 | PDOC ---
PROGRESS NOTES Chief Complaint Chief Complaint acute on chronic sickle cell anemia pain sickle cell disease narcotic tolerance and dependence SIRS, not infectious, reactive leukocytosis, hypokalemia, plan: pt has insurance, comes to this hosp just for pain management. She SHOULD have a PCP, but likely refused find one. and comes here every month at least just for iv pain meds. i talked to her insurance before, pt would not take any help from anyone. She said she is taking FA and hydryurea tho. will cont dialudid po, decrease iv to q4h. dc other pain meds since pt said not helping any way. cont ivf discussed with SW and foster care case manager no transfusion till hb <6 dvt ppx History of Present Illness History of Present Illness pain all the time, this is pt baseline Hb 6.8, also her baseline Vitals Vitals Vital Signs Date Time Temp Pulse Resp B/P Pulse Ox O2 Delivery O2 Flow Rate FiO2 12/31/16 10:51 97.9 79 18 104/63 96 Room Air 97.9 Physical Exam General: Alert, Cooperative, moderate distress, Other (pain, wincing) Heart: Regular rate Lungs: Clear, Other Abdomen: Normal bowel sounds, Soft (tender, diffuse), Other Extremities: No clubbing, No edema Skin: No rashes, No breakdown Labs LABS Laboratory Tests Test 12/31/16 10:00 White Blood Count 17.6x10^3/uL (4.0-11.0) Red Blood Count 1.79x10^6/uL (3.50-5.40) Hemoglobin 6.8g/dL (12.0-15.5) Hematocrit 18.8% (36.0-47.0) Mean Corpuscular Volume 105fL (79-100) Mean Corpuscular Hemoglobin 38pg (25-35) Mean Corpuscular Hemoglobin Concent 36g/dL (31-37) Red Cell Distribution Width 24.1% (11.5-14.5) Platelet Count 308x10^3/uL (140-400) Neutrophils (%) (Auto) 62% (31-73) Lymphocytes (%) (Auto) 27% (24-48) Monocytes (%) (Auto) 9% (0-9) Eosinophils (%) (Auto) 3% (0-3) Basophils (%) (Auto) 1% (0-3) Neutrophils # (Auto) 10.8x10^3uL (1.8-7.7) Lymphocytes # (Auto) 4.7x10^3/uL (1.0-4.8) Monocytes # (Auto) 1.5x10^3/uL (0.0-1.1) Eosinophils # (Auto) 0.4x10^3/uL (0.0-0.7) Basophils # (Auto) 0.1x10^3/uL (0.0-0.2) Reticulocyte Count (auto) 14.0% (0.5-2.5) Sodium Level 140mmol/L (136-145) Potassium Level 4.3mmol/L (3.5-5.1) Chloride Level 106mmol/L (98-107) Carbon Dioxide Level 26mmol/L (21-32) Anion Gap 8 (6-14) Blood Urea Nitrogen 4mg/dL (7-20) Creatinine 0.6mg/dL (0.6-1.0) Estimated GFR (Cockcroft-Gault) 149.9 BUN/Creatinine Ratio 7 (6-20) Glucose Level 105mg/dL (70-99) Calcium Level 8.7mg/dL (8.5-10.1) Total Bilirubin 2.0mg/dL (0.2-1.0) Aspartate Amino Transf (AST/SGOT) 23U/L (15-37) Alanine Aminotransferase (ALT/SGPT) 13U/L (14-59) Alkaline Phosphatase 86U/L (46-116) Total Protein 7.2g/dL (6.4-8.2) Albumin 3.4g/dL (3.4-5.0) Albumin/Globulin Ratio 0.9 (1.0-1.7) Review of Systems Review of Systems no fever, chills, sob or chest pain Assessment and Plan Assessmemt and Plan Problems Medical Problems: (1) Sickle cell pain crisis Status: Acute Problems: Comment Review of Relevant I have reviewed the following items chris (where applicable) has been applied. Labs Laboratory Tests Test 12/30/16 10:35 12/31/16 10:00 White Blood Count 14.7x10^3/uL (4.0-11.0) 17.6x10^3/uL (4.0-11.0) Red Blood Count 2.01x10^6/uL (3.50-5.40) 1.79x10^6/uL (3.50-5.40) Hemoglobin 7.4g/dL (12.0-15.5) 6.8g/dL (12.0-15.5) Hematocrit 21.3% (36.0-47.0) 18.8% (36.0-47.0) Mean Corpuscular Volume 106fL (79-100) 105fL (79-100) Mean Corpuscular Hemoglobin 37pg (25-35) 38pg (25-35) Mean Corpuscular Hemoglobin Concent 35g/dL (31-37) 36g/dL (31-37) Red Cell Distribution Width 22.9% (11.5-14.5) 24.1% (11.5-14.5) Platelet Count 386x10^3/uL (140-400) 308x10^3/uL (140-400) Neutrophils (%) (Auto) 50% (31-73) 62% (31-73) Lymphocytes (%) (Auto) 35% (24-48) 27% (24-48) Monocytes (%) (Auto) 11% (0-9) 9% (0-9) Eosinophils (%) (Auto) 3% (0-3) 3% (0-3) Basophils (%) (Auto) 1% (0-3) 1% (0-3) Neutrophils # (Auto) 7.3x10^3uL (1.8-7.7) 10.8x10^3uL (1.8-7.7) Lymphocytes # (Auto) 5.2x10^3/uL (1.0-4.8) 4.7x10^3/uL (1.0-4.8) Monocytes # (Auto) 1.7x10^3/uL (0.0-1.1) 1.5x10^3/uL (0.0-1.1) Eosinophils # (Auto) 0.5x10^3/uL (0.0-0.7) 0.4x10^3/uL (0.0-0.7) Basophils # (Auto) 0.1x10^3/uL (0.0-0.2) 0.1x10^3/uL (0.0-0.2) Platelet Estimate Adequate (ADEQUATE) Polychromasia Present Poikilocytosis Present Anisocytosis Present Microcytosis Present Macrocytosis Present Sickle Cells Present Ovalocytes Present Shelby-Ideal Bodies Present Reticulocyte Count (auto) 8.3% (0.5-2.5) 14.0% (0.5-2.5) Sodium Level 143mmol/L (136-145) 140mmol/L (136-145) Potassium Level 3.3mmol/L (3.5-5.1) 4.3mmol/L (3.5-5.1) Chloride Level 107mmol/L (98-107) 106mmol/L (98-107) Carbon Dioxide Level 23mmol/L (21-32) 26mmol/L (21-32) Anion Gap 13 (6-14) 8 (6-14) Blood Urea Nitrogen 6mg/dL (7-20) 4mg/dL (7-20) Creatinine 0.7mg/dL (0.6-1.0) 0.6mg/dL (0.6-1.0) Estimated GFR (Cockcroft-Gault) 125.5 149.9 Glucose Level 94mg/dL (70-99) 105mg/dL (70-99) Calcium Level 8.8mg/dL (8.5-10.1) 8.7mg/dL (8.5-10.1) BUN/Creatinine Ratio 7 (6-20) Total Bilirubin 2.0mg/dL (0.2-1.0) Aspartate Amino Transf (AST/SGOT) 23U/L (15-37) Alanine Aminotransferase (ALT/SGPT) 13U/L (14-59) Alkaline Phosphatase 86U/L (46-116) Total Protein 7.2g/dL (6.4-8.2) Albumin 3.4g/dL (3.4-5.0) Albumin/Globulin Ratio 0.9 (1.0-1.7) Laboratory Tests Test 12/31/16 10:00 White Blood Count 17.6x10^3/uL (4.0-11.0) Red Blood Count 1.79x10^6/uL (3.50-5.40) Hemoglobin 6.8g/dL (12.0-15.5) Hematocrit 18.8% (36.0-47.0) Mean Corpuscular Volume 105fL (79-100) Mean Corpuscular Hemoglobin 38pg (25-35) Mean Corpuscular Hemoglobin Concent 36g/dL (31-37) Red Cell Distribution Width 24.1% (11.5-14.5) Platelet Count 308x10^3/uL (140-400) Neutrophils (%) (Auto) 62% (31-73) Lymphocytes (%) (Auto) 27% (24-48) Monocytes (%) (Auto) 9% (0-9) Eosinophils (%) (Auto) 3% (0-3) Basophils (%) (Auto) 1% (0-3) Neutrophils # (Auto) 10.8x10^3uL (1.8-7.7) Lymphocytes # (Auto) 4.7x10^3/uL (1.0-4.8) Monocytes # (Auto) 1.5x10^3/uL (0.0-1.1) Eosinophils # (Auto) 0.4x10^3/uL (0.0-0.7) Basophils # (Auto) 0.1x10^3/uL (0.0-0.2) Reticulocyte Count (auto) 14.0% (0.5-2.5) Sodium Level 140mmol/L (136-145) Potassium Level 4.3mmol/L (3.5-5.1) Chloride Level 106mmol/L (98-107) Carbon Dioxide Level 26mmol/L (21-32) Anion Gap 8 (6-14) Blood Urea Nitrogen 4mg/dL (7-20) Creatinine 0.6mg/dL (0.6-1.0) Estimated GFR (Cockcroft-Gault) 149.9 BUN/Creatinine Ratio 7 (6-20) Glucose Level 105mg/dL (70-99) Calcium Level 8.7mg/dL (8.5-10.1) Total Bilirubin 2.0mg/dL (0.2-1.0) Aspartate Amino Transf (AST/SGOT) 23U/L (15-37) Alanine Aminotransferase (ALT/SGPT) 13U/L (14-59) Alkaline Phosphatase 86U/L (46-116) Total Protein 7.2g/dL (6.4-8.2) Albumin 3.4g/dL (3.4-5.0) Albumin/Globulin Ratio 0.9 (1.0-1.7) Medications Current Medications Hydromorphone HCl (Dilaudid) 2 mg 1X ONCE IM ; Start 12/30/16 at 10:15; Stop at 10:16; Status DC Hydromorphone HCl (Dilaudid) 1 mg 1X ONCE IV Last administered on 12/30/16 10 :51; Start 12/30/16 at 11:00; Stop 12/30/16 at 11:01; Status DC Ondansetron HCl 4 mg 4 mg 1X ONCE IV Last administered on 12/30/16 10:52; Start 12/30/16 at 11:00; Stop 12/30/16 at 11:01; Status DC Sodium Chloride (Iv Sodium Chloride 0.9% 1000ml Bag) 1,000 ml @ 1,000 mls/hr 1X ONCE IV Last administered on 12/30/16 10:52; Start 12/30/16 at 11:00; Stop 12/30/16 at 11:59; Status DC Hydromorphone HCl (Dilaudid) 1 mg 1X ONCE IV Last administered on 12/30/16 11 :58; Start 12/30/16 at 11:45; Stop 12/30/16 at 11:46; Status DC Ondansetron HCl 4 mg 4 mg PRN Q8HRS PRN IV NAUSEA/VOMITING Last administered on 12/31/16 00:53; Start 12/30/16 at 13:45; Stop 12/31/16 at 13:44 Sodium Chloride (Iv Sodium Chloride 0.9% 1000ml Bag) 1,000 ml @ 125 mls/hr Q8H IV Last administered on 12/30/16 15:43; Start 12/30/16 at 13:31; Stop at 16:51; Status DC Hydromorphone HCl (Dilaudid) 1 mg PRN Q2HR PRN IV PAIN Last administered on 06:23; Start 12/30/16 at 13:45; Stop 12/31/16 at 11:00; Status DC Morphine Sulfate (Ms Contin) 15 mg BID PO Last administered on 12/31/16 09:09 ; Start 12/30/16 at 14:15; Stop 12/31/16 at 11:00; Status DC Oxycodone/ Acetaminophen 1 tab 1 tab PRN Q4HRS PRN PO pain; Start 12/30/16 at 14:15; Stop 12/31/16 at 11:00; Status DC Sodium Chloride 1,000 ml @ 150 mls/hr Q6H40M IV Last administered on 00:51; Start 12/30/16 at 17:00 Magnesium Sulfate/ Dextrose (Magnesium Sulfate PREMIX 2GM) 50 ml @ 25 mls/hr 1X ONCE IV Last administered on 12/30/16 17:37; Start 12/30/16 at 17:00; Stop 12/30/16 at 18:59; Status DC Potassium Chloride (Klor-Con) 40 meq 1X ONCE PO Last administered on 17:37; Start 12/30/16 at 17:00; Stop 12/30/16 at 17:01; Status DC Potassium Chloride (Klor-Con) 20 meq [id number] PO Last administered on 09:07; Start 12/31/16 at 08:00 Docusate Sodium (Colace) 100 mg PRN DAILY PRN PO CONSTIPATION; Start 12/30/16 at 17:00 Polyethylene Glycol (miraLAX PACKET) 17 gm PRN DAILY PRN PO CONSTIPATION; Start 12/30/16 at 17:00 Acetaminophen (Tylenol) 325 mg QID PRN PO PAIN; Start 12/30/16 at 17:00 Diphenhydramine HCl (Benadryl) 50 mg Q6HRS PRN PO ANXIETY / AGITATION; Start at 17:00 Folic Acid (Folic Acid) 1 mg DAILY PO Last administered on 12/31/16 09:06; Start 12/31/16 at 09:00 Hydromorphone HCl (Dilaudid) 4 mg Q4HRS PRN PO PAIN Last administered on 10:32; Start 12/30/16 at 17:00 Hydroxyurea (Hydrea) 1,000 mg DAILY PO Last administered on 12/31/16 09:07; Start 12/31/16 at 09:00 Ibuprofen (Motrin) 200 mg PRN Q6HRS PRN PO INFLAMMATION Last administered on 00:51; Start 12/30/16 at 17:00 Zolpidem Tartrate (Ambien) 5 mg QHS PRN PO sleep Last administered on 21:50; Start 12/30/16 at 17:00 Enoxaparin Sodium (Lovenox 40mg Syringe) 40 mg QHS SQ Last administered on 12/30 20:42; Start 12/30/16 at 21:00 Hydromorphone HCl (Dilaudid) 1 mg PRN Q4HRS PRN IV PAIN; Start 12/31/16 at 13: 45 Active Scripts Active Percocet 5-325 Mg Tablet (Oxycodone/Acetaminophen) 1 Each Tablet 1 Tab PO PRN Q6HRS PRN Oxycodone Hcl 10 Mg Tablet 1 Tab PO QID Methadone Hcl 10 Mg Tablet 1 Tab PO TID Dilaudid (Hydromorphone Hcl) 4 Mg Tablet 1 Tab PO Q4HRS PRN Tylenol (Acetaminophen) 325 Mg Tablet 2 Tab PO QID PRN Benadryl (Diphenhydramine Hcl) 25 Mg Capsule 50 Mg PO Q6HRS PRN Ambien (Zolpidem Tartrate) 5 Mg Tablet 1 Tab PO QHS PRN Prednisone 10 Mg Tablet 10 Mg PO UD Take 3 tablets by mouth daily for 3 days, then take 2 tablets by mouth daily for 3 days, then take 1 tablet by mouth daily for 3 days, then stop. Ibuprofen 200 Mg Tablet 200 Mg PO PRN Q6HRS PRN Folic Acid 1 Mg Tablet 1 Tab PO DAILY Hydroxyurea 500 Mg Capsule 1,000 Mg PO DAILY Vitals/I & O Vital Sign - Last 24 Hours 12/30/16 12/30/16 12/30/16 12/30/16 14:30 15:00 15:00 16:06 Temp 97.8 97.8 97.8 97.8 Pulse 81 62 62 Resp 16 16 B/P 96/42 96/42 Pulse Ox 96 99 99 O2 Delivery Room Air Room Air Room Air 3/21/17 3/21/17 3/21/17 3/21/17 19:30 20:00 20:43 21:51 Temp 98.2 98.2 Pulse 85 Resp 18 B/P 110/78 Pulse Ox 99 O2 Delivery Room Air Room Air Room Air Room Air 12/30/16 12/31/16 12/31/16 12/31/16 23:58 00:49 02:09 03:30 Temp 98.3 98.3 Pulse 74 Resp 18 B/P 113/68 Pulse Ox 96 O2 Delivery Room Air Room Air Room Air Room Air 12/31/16 12/31/16 12/31/16 12/31/16 04:15 04:55 06:23 07:19 Temp 97.7 97.7 Pulse 74 Resp 17 B/P 104/69 Pulse Ox 96 95 O2 Delivery Room Air Room Air Room Air Room Air 12/31/16 12/31/16 08:00 10:51 Temp 97.9 97.9 Pulse 79 Resp 18 B/P 104/63 Pulse Ox 96 O2 Delivery Room Air Room Air Intake and Output 12/30/16 12/30/16 12/31/16 15:00 23:00 07:00 Intake Total 1000 ml 1800 ml 0 ml Balance 1000 ml 1800 ml 0 ml ROLAN SAEED MD Dec 31, 2016 12:18
[2016-12-31] MEDS ORDERED: HYDROMORPHONE 2 MG/ML VIAL. IV PRN (13:45)
[2016-12-31 15:03] VITALS: BP 101/44
[2016-12-31 19:30] VITALS: BP 113/64
[2016-12-31] MEDS: ENOXAPARIN 40 MG/0.4 ML DISP.SYRIN. SQ SCH (20:29)
[2016-12-31] MEDS: ZOLPIDEM 5 MG TABLET. PO PRN (21:20)
[2016-12-31 23:35] VITALS: BP 113/59
[2017-01-01] MEDS: HYDROMORPHONE 4 MG TABLET. PO PRN ×6 (00:03→22:49)
[2017-01-01] MEDS: IV 1/2 NORMAL SALINE 1,000 ML IV SCH ×5 (00:19→21:57)
[2017-01-01] MEDS: FOLIC ACID 1 MG TABLET PO SCH (08:16)
[2017-01-01] MEDS: HYDROXYUREA 500 MG CAPSULE PO SCH (08:22)
--- NOTE | 2017-01-01 12:17 | PDOC ---
PROGRESS NOTES Chief Complaint Chief Complaint acute on chronic sickle cell anemia pain sickle cell disease narcotic tolerance and dependence SIRS, not infectious, reactive leukocytosis, hypokalemia, plan: pt has insurance, comes to this hosp just for pain management. She SHOULD have a PCP, but likely refused find one. and comes here every month at least just for iv pain meds. i talked to her insurance before, pt would not take any help from anyone. She said she is taking FA and hydryurea tho. will cont dialudid po, decrease iv to q4h. dc other pain meds since pt said not helping any way. cont ivf discussed with SW and pillowcase turner no transfusion till hb <6 dvt ppx History of Present Illness History of Present Illness pain all the time, this is pt baseline Hb 6.8, also her baseline iv dilaudid not given Vitals Vitals Vital Signs Date Time Temp Pulse Resp B/P Pulse Ox O2 Delivery O2 Flow Rate FiO2 01/01/17 07:46 Room Air 12/31/16 23:35 99.5 87 20 113/59 91 99.5 Physical Exam General: Alert, Cooperative, moderate distress, Other (pain, wincing) Heart: Regular rate Lungs: Clear, Other Abdomen: Normal bowel sounds, Soft (tender, diffuse), Other Extremities: No clubbing, No edema Skin: No rashes, No breakdown Review of Systems Review of Systems no fever, chills, sob or chest pain Assessment and Plan Assessmemt and Plan Problems Medical Problems: (1) Sickle cell pain crisis Status: Acute Problems: Comment Review of Relevant I have reviewed the following items chris (where applicable) has been applied. Labs Laboratory Tests Test 12/31/16 10:00 White Blood Count 17.6x10^3/uL (4.0-11.0) Red Blood Count 1.79x10^6/uL (3.50-5.40) Hemoglobin 6.8g/dL (12.0-15.5) Hematocrit 18.8% (36.0-47.0) Mean Corpuscular Volume 105fL (79-100) Mean Corpuscular Hemoglobin 38pg (25-35) Mean Corpuscular Hemoglobin Concent 36g/dL (31-37) Red Cell Distribution Width 24.1% (11.5-14.5) Platelet Count 308x10^3/uL (140-400) Neutrophils (%) (Auto) 62% (31-73) Lymphocytes (%) (Auto) 27% (24-48) Monocytes (%) (Auto) 9% (0-9) Eosinophils (%) (Auto) 3% (0-3) Basophils (%) (Auto) 1% (0-3) Neutrophils # (Auto) 10.8x10^3uL (1.8-7.7) Lymphocytes # (Auto) 4.7x10^3/uL (1.0-4.8) Monocytes # (Auto) 1.5x10^3/uL (0.0-1.1) Eosinophils # (Auto) 0.4x10^3/uL (0.0-0.7) Basophils # (Auto) 0.1x10^3/uL (0.0-0.2) Reticulocyte Count (auto) 14.0% (0.5-2.5) Sodium Level 140mmol/L (136-145) Potassium Level 4.3mmol/L (3.5-5.1) Chloride Level 106mmol/L (98-107) Carbon Dioxide Level 26mmol/L (21-32) Anion Gap 8 (6-14) Blood Urea Nitrogen 4mg/dL (7-20) Creatinine 0.6mg/dL (0.6-1.0) Estimated GFR (Cockcroft-Gault) 149.9 BUN/Creatinine Ratio 7 (6-20) Glucose Level 105mg/dL (70-99) Calcium Level 8.7mg/dL (8.5-10.1) Total Bilirubin 2.0mg/dL (0.2-1.0) Aspartate Amino Transf (AST/SGOT) 23U/L (15-37) Alanine Aminotransferase (ALT/SGPT) 13U/L (14-59) Alkaline Phosphatase 86U/L (46-116) Total Protein 7.2g/dL (6.4-8.2) Albumin 3.4g/dL (3.4-5.0) Albumin/Globulin Ratio 0.9 (1.0-1.7) Medications Current Medications Hydromorphone HCl (Dilaudid) 2 mg 1X ONCE IM ; Start 12/30/16 at 10:15; Stop at 10:16; Status DC Hydromorphone HCl (Dilaudid) 1 mg 1X ONCE IV Last administered on 12/30/16 10 :51; Start 12/30/16 at 11:00; Stop 12/30/16 at 11:01; Status DC Ondansetron HCl 4 mg 4 mg 1X ONCE IV Last administered on 12/30/16 10:52; Start 12/30/16 at 11:00; Stop 12/30/16 at 11:01; Status DC Sodium Chloride (Iv Sodium Chloride 0.9% 1000ml Bag) 1,000 ml @ 1,000 mls/hr 1X ONCE IV Last administered on 12/30/16 10:52; Start 12/30/16 at 11:00; Stop 12/30/16 at 11:59; Status DC Hydromorphone HCl (Dilaudid) 1 mg 1X ONCE IV Last administered on 12/30/16 11 :58; Start 12/30/16 at 11:45; Stop 12/30/16 at 11:46; Status DC Ondansetron HCl 4 mg 4 mg PRN Q8HRS PRN IV NAUSEA/VOMITING Last administered on 12/31/16 00:53; Start 12/30/16 at 13:45; Stop 12/31/16 at 13:44; Status DC Sodium Chloride (Iv Sodium Chloride 0.9% 1000ml Bag) 1,000 ml @ 125 mls/hr Q8H IV Last administered on 12/30/16 15:43; Start 12/30/16 at 13:31; Stop at 16:51; Status DC Hydromorphone HCl (Dilaudid) 1 mg PRN Q2HR PRN IV PAIN Last administered on 06:23; Start 12/30/16 at 13:45; Stop 12/31/16 at 11:00; Status DC Morphine Sulfate (Ms Contin) 15 mg BID PO Last administered on 12/31/16 09:09 ; Start 12/30/16 at 14:15; Stop 12/31/16 at 11:00; Status DC Oxycodone/ Acetaminophen 1 tab 1 tab PRN Q4HRS PRN PO pain; Start 12/30/16 at 14:15; Stop 12/31/16 at 11:00; Status DC Sodium Chloride 1,000 ml @ 150 mls/hr Q6H40M IV Last administered on 08:17; Start 12/30/16 at 17:00 Magnesium Sulfate/ Dextrose (Magnesium Sulfate PREMIX 2GM) 50 ml @ 25 mls/hr 1X ONCE IV Last administered on 12/30/16 17:37; Start 12/30/16 at 17:00; Stop 12/30/16 at 18:59; Status DC Potassium Chloride (Klor-Con) 40 meq 1X ONCE PO Last administered on 17:37; Start 12/30/16 at 17:00; Stop 12/30/16 at 17:01; Status DC Potassium Chloride (Klor-Con) 20 meq DAILYWBKFT PO Last administered on 09:07; Start 12/31/16 at 08:00; Stop 12/31/16 at 12:18; Status DC Docusate Sodium (Colace) 100 mg PRN DAILY PRN PO CONSTIPATION; Start 12/30/16 at 17:00 Polyethylene Glycol (miraLAX PACKET) 17 gm PRN DAILY PRN PO CONSTIPATION; Start 12/30/16 at 17:00 Acetaminophen (Tylenol) 325 mg QID PRN PO PAIN; Start 12/30/16 at 17:00 Diphenhydramine HCl (Benadryl) 50 mg Q6HRS PRN PO ANXIETY / AGITATION; Start at 17:00 Folic Acid (Folic Acid) 1 mg DAILY PO Last administered on 01/01/17 08:16; Start 12/31/16 at 09:00 Hydromorphone HCl (Dilaudid) 4 mg Q4HRS PRN PO PAIN Last administered on 09:47; Start 12/30/16 at 17:00 Hydroxyurea (Hydrea) 1,000 mg DAILY PO Last administered on 01/01/17 08:22; Start 12/31/16 at 09:00 Ibuprofen (Motrin) 200 mg PRN Q6HRS PRN PO INFLAMMATION Last administered on 17:02; Start 12/30/16 at 17:00 Zolpidem Tartrate (Ambien) 5 mg QHS PRN PO sleep Last administered on 21:20; Start 12/30/16 at 17:00 Enoxaparin Sodium (Lovenox 40mg Syringe) 40 mg QHS SQ Last administered on 12/30t 20:42; Start 12/30/16 at 21:00 Hydromorphone HCl (Dilaudid) 1 mg PRN Q4HRS PRN IV PAIN; Start 12/31/16 at 13: 45 Active Scripts Active Percocet 5-325 Mg Tablet (Oxycodone/Acetaminophen) 1 Each Tablet 1 Tab PO PRN Q6HRS PRN Oxycodone Hcl 10 Mg Tablet 1 Tab PO QID Methadone Hcl 10 Mg Tablet 1 Tab PO TID Dilaudid (Hydromorphone Hcl) 4 Mg Tablet 1 Tab PO Q4HRS PRN Tylenol (Acetaminophen) 325 Mg Tablet 2 Tab PO QID PRN Benadryl (Diphenhydramine Hcl) 25 Mg Capsule 50 Mg PO Q6HRS PRN Ambien (Zolpidem Tartrate) 5 Mg Tablet 1 Tab PO QHS PRN Prednisone 10 Mg Tablet 10 Mg PO UD Take 3 tablets by mouth daily for 3 days, then take 2 tablets by mouth daily for 3 days, then take 1 tablet by mouth daily for 3 days, then stop. Ibuprofen 200 Mg Tablet 200 Mg PO PRN Q6HRS PRN Folic Acid 1 Mg Tablet 1 Tab PO DAILY Hydroxyurea 500 Mg Capsule 1,000 Mg PO DAILY Vitals/I & O Vital Sign - Last 24 Hours 12/31/16 12/31/16 12/31/16 12/31/16 14:32 15:03 19:30 20:00 Temp 97.9 98.6 97.9 98.6 Pulse 77 83 Resp 18 18 B/P 101/44 113/64 Pulse Ox 96 94 93 O2 Delivery Room Air Room Air Room Air Room Air 12/31/16 01/01/17 23:35 07:46 Temp 99.5 99.5 Pulse 87 Resp 20 B/P 113/59 Pulse Ox 91 O2 Delivery Room Air Room Air Intake and Output 12/31/16 12/31/16 01/01/17 15:00 23:00 07:00 Intake Total 900 ml 400 ml Output Total 1500 ml Balance 900 ml -1100 ml ROLAN SAEED MD Jan 01, 2017 12:17
[2017-01-01 13:55] LABS: BASO # 0.1 x10^3/uL (0.0-0.2); BASO % 1 % (0-3); EOS % 4 % (0-3); LYMPH # 4.5 x10^3/uL (1.0-4.8); LYMPH % 27 % (24-48); MEAN CORPUSCULAR HEMOGLOBIN 39 pg (25-35); MEAN CORPUSCULAR HGB CONC 37 g/dL (31-37); MEAN CORPUSCULAR VOLUME 105 fL (79-100); MONO % 8 % (0-9); NEUT % 61 % (31-73); PLATELET COUNT 315 x10^3/uL (140-400); RED BLOOD COUNT 1.63 x10^6/uL (3.50-5.40); RED CELL DISTRIBUTION WIDTH 26.5 % (11.5-14.5); WHITE BLOOD COUNT 17.2 x10^3/uL (4.0-11.0)
[2017-01-01 13:58] LABS: CALCIUM 8.4 mg/dL (8.5-10.1); CREATININE 0.6 mg/dL (0.6-1.0); GFR 149.9; POTASSIUM 4.3 mmol/L (3.5-5.1)
[2017-01-01 14:00] LABS: HEMATOCRIT 17.1 % (36.0-47.0); HEMOGLOBIN 6.3 g/dL (12.0-15.5)
[2017-01-01 14:04] LABS: ALBUMIN 3.5 g/dL (3.4-5.0); ALBUMIN/GLOBULIN RATIO 0.9 (1.0-1.7); TOTAL BILIRUBIN 2.2 mg/dL (0.2-1.0); TOTAL PROTEIN 7.4 g/dL (6.4-8.2)
[2017-01-01 15:10] VITALS: BP 118/71
[2017-01-01 19:00] VITALS: BP 125/71
[2017-01-01] MEDS: ENOXAPARIN 40 MG/0.4 ML DISP.SYRIN. SQ SCH (20:23)
[2017-01-01] MEDS: ZOLPIDEM 5 MG TABLET. PO PRN ×2 (20:25→21:57)
[2017-01-01 22:45] VITALS: BP 126/73
[2017-01-02] MEDS: HYDROMORPHONE 4 MG TABLET. PO PRN ×2 (02:53→07:45)
[2017-01-02 02:55] VITALS: BP 124/75
[2017-01-02] MEDS: IV 1/2 NORMAL SALINE 1,000 ML IV SCH (05:47)
[2017-01-02 07:30] VITALS: BP 119/73
[2017-01-02] MEDS: FOLIC ACID 1 MG TABLET PO SCH (07:45)
[2017-01-02] MEDS: HYDROXYUREA 500 MG CAPSULE PO SCH (07:48)
[2017-01-02 09:12] LABS: BASO # 0.1 x10^3/uL (0.0-0.2); BASO % 1 % (0-3); EOS % 4 % (0-3); LYMPH # 3.3 x10^3/uL (1.0-4.8); LYMPH % 21 % (24-48); MEAN CORPUSCULAR HEMOGLOBIN 39 pg (25-35); MEAN CORPUSCULAR HGB CONC 35 g/dL (31-37); MEAN CORPUSCULAR VOLUME 109 fL (79-100); MONO % 10 % (0-9); NEUT % 65 % (31-73); PLATELET COUNT 300 x10^3/uL (140-400); RED BLOOD COUNT 1.66 x10^6/uL (3.50-5.40); RED CELL DISTRIBUTION WIDTH 25.5 % (11.5-14.5); WHITE BLOOD COUNT 15.7 x10^3/uL (4.0-11.0)
[2017-01-02 09:16] LABS: HEMATOCRIT 18.1 % (36.0-47.0); HEMOGLOBIN 6.4 g/dL (12.0-15.5)
[2017-01-02 09:33] LABS: CALCIUM 8.8 mg/dL (8.5-10.1); CREATININE 0.6 mg/dL (0.6-1.0); GFR 149.9; POTASSIUM 4.5 mmol/L (3.5-5.1)
[2017-01-02] MEDS ORDERED: HYDROMORPHONE 4 MG TABLET. PO PRN (10:00)
[2017-01-02] MEDS ORDERED: HYDR4TAB13 PO (10:19)
--- NOTE | 2017-01-02 10:49 | PDOC3 ---
Discharge Summary [facility] Date of Admission: Dec 30, 2016 Discharge Date: Jan 02, 2017 Admitting Diagnosis acute on chronic sickle cell anemia pain sickle cell disease narcotic tolerance and dependence SIRS, not infectious, reactive leukocytosis hypokalemia, uncompliance Problems: Final Diagnosis Brief Hospital Course 21yo F, sickle cell dz, chronic pain , opoids dependence comes to ER for pain control. Pt is very uncompliant, she has insurance, but refused to find a pcp and pain clinic in [place]. She always comes here monthly to get iv pain meds. insurance company tried to help her, but she refused. Baselin Hb 6-7. pt got po dilaudid here, we wont give her iv pain meds since she looks comfortable, altho c/o pain forever and is a drug seeker. dc home with dilaudid 4-8mg po q4h prn, 30pills. and ambien 5mg qhs 5 pills. i will not give methadone since pt will not fu with anyone. no help can be given in this hosp. hope ER WILL NOT admit her next time. mental health case manager, mitzy, involved. PCP list given. dc time 40min. General: Alert, Cooperative, moderate distress, Other (pain, wincing) Heart: Regular rate Lungs: Clear, Other Abdomen: Normal bowel sounds, Soft (tender, diffuse), Other Extremities: No clubbing, No edema Skin: No rashes, No breakdown Patient History: Patient reports no known family medical history. Problems: Disposition home CONDITION AT DISCHARGE: Improved Diet regular Scheduled Folic Acid (Folic Acid) 1 TAB PO DAILY Hydroxyurea (Hydroxyurea) 1,000 MG PO DAILY Scheduled PRN Acetaminophen (Tylenol) 2 TAB PO QID PRN PRN PAIN Diphenhydramine Hcl (Benadryl) 50 MG PO Q6HRS PRN PRN ANXIETY / AGITATION Hydromorphone Hcl (Dilaudid) 8 MG PO PRN Q4HRS PRN PRN PAIN SEVERE Discontinued Medications Hydromorphone Hcl (Dilaudid) 1 TAB PO Q4HRS PRN PRN PAIN Ibuprofen (Ibuprofen) 200 MG PO PRN Q6HRS PRN PRN INFLAMMATION Methadone Hcl (Methadone Hcl) 1 TAB PO TID Oxycodone Hcl (Oxycodone Hcl) 1 TAB PO QID Oxycodone/Apap 5-325 (Percocet 5-325 Mg Tablet) 1 TAB PO PRN Q6HRS PRN PRN PAIN Prednisone (Prednisone) 10 MG PO UD Zolpidem Tartrate (Ambien) 1 TAB PO QHS PRN PRN sleep Follow Up need to find pcp to ROLAN Norris MD Jan 02, 2017 10:49
== END 2017-01-02 12:45 | disposition home or self-care (01) | DRG 812 ==
LOC: ER 10:05 → 6 SOUTH 13:30
PROVIDERS: ADMIT Internal Medicine; ATTEND Internal Medicine
DX: D57.00 Hb-SS disease with crisis, unspecified (principal); R65.10 Systemic inflammatory response syndrome (SIRS) of non-infectious origin without acute organ dysfunction; F11.20 Opioid dependence, uncomplicated; E87.6 Hypokalemia; G89.29 Other chronic pain; M54.5 Low back pain; Z88.1 Allergy status to other antibiotic agents
CPT/HCPCS: 36415; 80048; 80053; 85007; 85027; 85045; 96361; 96374; 96375; 96376; J1170; J1650; J2405; J7030; J7060; 99285-25

== ENCOUNTER 2017-01-10 17:34 | Emergency (ER) | payer OTHER ==
[~2017-01-10] VITALS: Ht 170.2 cm; Wt 63.5 kg
[2017-01-10] MEDS ORDERED: ONDANSETRON PF 4 MG/2 ML VIAL. IV PRN (18:15)
[2017-01-10 19:08] LABS: BASO # 0.2 x10^3/uL (0.0-0.2); BASO % 2 % (0-3); EOS % 5 % (0-3); HEMOGLOBIN 7.8 g/dL (12.0-15.5); LYMPH # 3.8 x10^3/uL (1.0-4.8); LYMPH % 31 % (24-48); MEAN CORPUSCULAR HEMOGLOBIN 39 pg (25-35); MEAN CORPUSCULAR HGB CONC 35 g/dL (31-37); MEAN CORPUSCULAR VOLUME 112 fL (79-100); MONO % 13 % (0-9); NEUT % 50 % (31-73); PLATELET COUNT 349 x10^3/uL (140-400); RED BLOOD COUNT 1.97 x10^6/uL (3.50-5.40); RED CELL DISTRIBUTION WIDTH 22.4 % (11.5-14.5); RETIC COUNT 6.9 % (0.5-2.5); WHITE BLOOD COUNT 12.2 x10^3/uL (4.0-11.0)
[2017-01-10 19:21] LABS: CALCIUM 9.1 mg/dL (8.5-10.1); CREATININE 0.6 mg/dL (0.6-1.0); GFR 149.9; POTASSIUM 4.5 mmol/L (3.5-5.1)
[2017-01-10 19:29] LABS: BILIRUBIN,URINE NEGATIVE (NEG); GLUCOSE,URINE NEGATIVE (NEG); NITRITE,URINE NEGATIVE (NEG); PROTEIN,URINE NEGATIVE (NEG-TRACE)
[2017-01-10] MEDS ORDERED: MORPHINE SULFATE 2 MG/ML DISP.SYRIN. ONE (19:41)
[2017-01-10 19:45] LABS: BACTERIA,URINE FEW /HPF (0-FEW); RBC,URINE 0 /HPF (0-2); SQUAMOUS EPITHELIAL CELL,UR FEW /LPF; WBC,URINE RARE /HPF (0-4)
[2017-01-10] MEDS: MORPHINE SULFATE 2 MG/ML DISP.SYRIN. IV PRN ×3 (19:45→21:11)
[2017-01-10] MEDS ORDERED: MORP15TA PO (20:05)
--- NOTE | 2017-01-10 20:05 | PHYS DOC ---
Past Medical History Past Medical History: Sickle Cell Disease Additional Past Medical Histor: sickle cell anemia Past Surgical History: Alcohol Use: None Drug Use: None Adult General Chief Complaint Chief Complaint: PAIN CONTROL HPI HPI 21-year-old female presenting to the emergency department today with pain in her muscles. She describes the pain is throbbing severe nonradiating and without alleviating factors. She ran out of her hydromorphone yesterday. She does not have a PCP. No specific timing. She denies shortness of breath but does have intermittent chest pain. Review of systems is negative for abdominal pain nausea vomiting diaphoresis fevers or chills. All other review of systems is negative unless otherwise noted in history of present illness. Review of Systems Review of Systems SEE ABOVE. Current Medications Current Medications Current Medications Medications (Trade) Dose Ordered Sig/Vanessa Start Time Stop Time Status Last Admin Dose Admin Morphine Sulfate 2 mg STK-MED ONCE 01/10/17 19:41 01/10/17 19:42 DC Ondansetron HCl (Zofran) 4 mg PRN Q30MIN PRN 01/10/17 18:15 01/10/17 19:38 4 MG Allergies Allergies Allergies Coded Allergies Type Severity Reaction Last Updated Verified acetaminophen Allergy Intermediate ITCHING 09/02/16 Yes I S O L A T I O N *CONTACT* Allergy Unknown 12/31/16 Yes Physical Exam Physical Exam Constitutional: Well developed, well nourished, no acute distress, non-toxic appearance. HENT: Normocephalic, atraumatic, bilateral external ears normal, oropharynx moist, no oral exudates, nose normal. [] Eyes: PERRLA, EOMI, conjunctiva normal, no discharge. Neck: Normal range of motion, no tenderness, supple, no stridor. [] Cardiovascular:Heart rate regular rhythm, no murmur Lungs & Thorax: Bilateral breath sounds clear to auscultation [] Abdomen: Bowel sounds normal, soft, no tenderness, no masses, no pulsatile masses. Skin: Warm, dry, no erythema, no rash. [] Back: No tenderness, no CVA tenderness. [] Extremities: No tenderness, no cyanosis, no clubbing, ROM intact, no edema. Neurologic: Alert and oriented X 3, normal motor function, normal sensory function, no focal deficits noted. Psychologic: Affect normal, judgement normal, mood normal. [] Current Patient Data Vital Signs Vital Signs Date Time Temp Pulse Resp B/P Pulse Ox O2 Delivery O2 Flow Rate FiO2 01/10/17 19:45 16 92 Room Air 01/10/17 17:38 98.4 100 123/66 98.4 Lab Values Laboratory Tests Test 01/10/17 17:50 01/10/17 19:00 01/10/17 19:10 POC Urine HCG, Qualitative Hcg negative (Negative) White Blood Count 12.2x10^3/uL (4.0-11.0) H Red Blood Count 1.97x10^6/uL (3.50-5.40) L Hemoglobin 7.8g/dL (12.0-15.5) L Hematocrit 22.0% (36.0-47.0) L Mean Corpuscular Volume 112fL (79-100) H Mean Corpuscular Hemoglobin 39pg (25-35) H Mean Corpuscular Hemoglobin Concent 35g/dL (31-37) Red Cell Distribution Width 22.4% (11.5-14.5) H Platelet Count 349x10^3/uL (140-400) Neutrophils (%) (Auto) 50% (31-73) Lymphocytes (%) (Auto) 31% (24-48) Monocytes (%) (Auto) 13% (0-9) H Eosinophils (%) (Auto) 5% (0-3) H Basophils (%) (Auto) 2% (0-3) Neutrophils # (Auto) 6.1x10^3uL (1.8-7.7) Lymphocytes # (Auto) 3.8x10^3/uL (1.0-4.8) Monocytes # (Auto) 1.5x10^3/uL (0.0-1.1) H Eosinophils # (Auto) 0.6x10^3/uL (0.0-0.7) Basophils # (Auto) 0.2x10^3/uL (0.0-0.2) Reticulocyte Count (auto) 6.9% (0.5-2.5) H Sodium Level 144mmol/L (136-145) Potassium Level 4.5mmol/L (3.5-5.1) Chloride Level 108mmol/L (98-107) H Carbon Dioxide Level 26mmol/L (21-32) Anion Gap 10 (6-14) Blood Urea Nitrogen 14mg/dL (7-20) Creatinine 0.6mg/dL (0.6-1.0) Estimated GFR (Cockcroft-Gault) 149.9 Glucose Level 98mg/dL (70-99) Calcium Level 9.1mg/dL (8.5-10.1) Urine Collection Type Unknown Urine Color Yellow Urine Clarity Clear Urine pH 7.0 Urine Specific [place] 1.010 Urine Protein Negativemg/dL (NEG-TRACE) Urine Glucose (UA) Negativemg/dL (NEG) Urine Ketones (Stick) Negativemg/dL (NEG) Urine Blood Negative (NEG) Urine Nitrite Negative (NEG) Urine Bilirubin Negative (NEG) Urine Urobilinogen Dipstick 1.0mg/dL (0.2 mg/dL) Urine Leukocyte Esterase Trace (NEG) Urine RBC 0/HPF (0-2) Urine WBC Rare/HPF (0-4) Urine Squamous Epithelial Cells Few/LPF Urine Bacteria Few/HPF (0-FEW) Laboratory Tests 01/10/17 19:00 Laboratory Tests 01/10/17 19:00 EKG EKG [] Radiology/Procedures Radiology/Procedures [] Chest x-ray shows no obvious infiltrate or pneumothorax. Course & Med Decision Making Course & Med Decision Making Pertinent Labs and Imaging studies reviewed. (See chart for details) [] 21-year-old female presenting to the emergency department with pain in her muscles likely secondary to sickle cell disease. Afebrile in the emergency department. Mild tachycardia. Otherwise unremarkable vital signs. Pertinent physical exam shows a normal physical exam. Chest x-ray normal. Reticulocyte count up. Otherwise chronic anemia present. The patient was treated with morphine in the emergency department and subsequently discharged home to follow up with PCP. Sandra Disclaimer Dragon Disclaimer This electronic medical record was generated, in whole or in part, using a voice recognition dictation system. Departure Departure Impression: Primary Impression: Sickle cell pain crisis Disposition: HOME, SELF-CARE Condition: STABLE Referrals: NO PCP (PCP) ASTRID FRANKLIN MD Patient Instructions: Sickle Cell Anemia, Sickle Cell Pain Crisis Additional Instructions: Thank you for allowing us to participate in your care today. Followup with your primary care physician in 3 days if your symptoms do not improve. If you do not have a primary care provider you can ask for a list of our primary care providers. Return to the emergency department you have any new or concerning findings. This should be evaluated by the primary care physician and any necessary consulting services for continued management within a few days after discharge. Return to emergency room if you have any new or concerning symptoms including but not limited to fever, chills, nausea, vomiting, intractable pain, any new rashes, chest pain, shortness of air, uncontrolled bleeding, difficulty breathing, and/or vision loss. You may have been prescribed medication that can change in your level of thinking and ability to operate machinery. These medications include hydrocodone and Ativan. Also, Benadryl has been known to do this as well. Be sure to check with your pharmacist and ask if the medications you've prescribed can affect your level of consciousness. I recommend not operating heavy machinery or driving while on medication such as these. Scripts Morphine Sulfate 15 Mg Tablet1 Tab PO PRN Q6-8HRS PRN SEVERE PAIN #8 TAB Prov:LEONEL MOJICA MD 01/10/17 LEONEL MOJICA MD Jan 10, 2017 20:05
[2017-01-10 20:13] LABS: ANISOCYTOSIS MOD; PLT ESTIMATE ADEQUATE (ADEQUATE); POLYCHROMASIA SLIGHT
[2017-01-10 20:14] LABS: SCHISTOCYTES OCC; SICKLE CELLS MOD; TARGET CELLS FEW
[2017-01-10 20:15] LABS: TOXIC GRANULATION SLIGHT
[2017-01-10 21:30] VITALS: BP 100/66
--- NOTE | 2017-01-11 07:58 | RAD ---
EXAM: Chest, 2 views. HISTORY: Chest pain. COMPARISON: 11/08/2016. FINDINGS: Frontal and lateral views of the chest are obtained. There is no infiltrate, effusion or pneumothorax. The heart is normal in size. IMPRESSION: No acute pulmonary finding.
== END 2017-01-10 21:45 | disposition home or self-care (01) ==
LOC: ER 17:34
DX: D57.00 Hb-SS disease with crisis, unspecified (principal); Z88.6 Allergy status to analgesic agent; Z91.041 Radiographic dye allergy status
CPT/HCPCS: 36415; 71020; 80048; 81001; 81025; 85007; 85027; 85045; 87086; 96374; 96375; 96376; 99285; J2270; J2405

== ENCOUNTER 2017-01-21 16:48 | Emergency (ER) | payer OTHER ==
[~2017-01-21] VITALS: Ht 170.2 cm; Wt 63.5 kg
[~2017-01-21 16:48] MED LIST changes: +MORP15TA PO
--- NOTE | 2017-01-21 20:07 | PHYS DOC ---
Past Medical History Past Medical History: Sickle Cell Disease Additional Past Medical Histor: sickle cell anemia Past Surgical History: Alcohol Use: None Drug Use: None Adult General Chief Complaint Chief Complaint: PAIN CONTROL HPI HPI Patient is a 21 year old female who presents with complaint of sickle cell pain. Patient states that she started having worsening symptoms today. Patient came to the emergency department for pain control. The patient states that she is not currently following with a primary physician that she recently moved to [facility] from [facility]. The patient states that she is not taking any medications other than morphine which was prescribed at her previous visit to help with pain control. Patient has not set up primary follow- up since her visit. Patient states that she is having intermittent chest pains which she has with previous exacerbations. Patient denies any fevers or other symptoms. Patient rates her pain as 10 out of 10 currently. Review of Systems Review of Systems Constitutional: Denies fever or chills [] Eyes: Denies change in visual acuity, redness, or eye pain [] HENT: Denies nasal congestion or sore throat [] Respiratory: Denies cough or shortness of breath [] Cardiovascular: Intermittent chest pain [] GI: Denies abdominal pain, nausea, vomiting, bloody stools or diarrhea [] : Denies dysuria or hematuria [] Musculoskeletal: Back pain, bilateral leg pain [] Integument: Denies rash or skin lesions [] Neurologic: Denies headache, focal weakness or sensory changes [] Current Medications Current Medications Current Medications Medications (Trade) Dose Ordered Sig/Vanessa Start Time Stop Time Status Last Admin Dose Admin Hydromorphone HCl (Dilaudid) 8 mg 1X ONCE 01/21/17 22:30 01/21/17 22:31 DC 01/21/17 22:21 8 MG Morphine Sulfate 5 mg 1X ONCE 01/21/17 20:15 01/21/17 20:16 DC 01/21/17 20:40 5 MG Ondansetron HCl (Zofran Odt) 4 mg 1X ONCE 01/21/17 20:15 01/21/17 20:16 DC 01/21/17 20:15 4 MG Allergies Allergies Allergies Coded Allergies Type Severity Reaction Last Updated Verified acetaminophen Allergy Intermediate ITCHING 09/02/16 Yes I S O L A T I O N *CONTACT* Allergy Unknown 12/31/16 Yes Physical Exam Physical Exam Constitutional: Well developed, well nourished, no acute distress, non-toxic appearance. [] HENT: Normocephalic, atraumatic, bilateral external ears normal, oropharynx moist, no oral exudates, nose normal. [] Eyes: PERRLA, EOMI, conjunctiva normal, no discharge. [] Neck: Normal range of motion, no tenderness, supple, no stridor. [] Cardiovascular:Heart rate regular rhythm, no murmur [] Lungs & Thorax: Bilateral breath sounds clear to auscultation [] Abdomen: Bowel sounds normal, soft, no tenderness, no masses, no pulsatile masses. [] Skin: Warm, dry, no erythema, no rash. [] Back: No tenderness, no CVA tenderness. [] Extremities: No tenderness, no cyanosis, no clubbing, ROM intact, no edema. [] Neurologic: Alert and oriented X 3, normal motor function, normal sensory function, no focal deficits noted. [] Current Patient Data Vital Signs Vital Signs Date Time Temp Pulse Resp B/P Pulse Ox O2 Delivery O2 Flow Rate FiO2 01/21/17 22:23 89 16 96 01/21/17 17:15 98.1 112/66 Room Air 98.1 Lab Values Laboratory Tests Test 01/21/17 21:25 White Blood Count 13.2x10^3/uL (4.0-11.0) H Red Blood Count 1.97x10^6/uL (3.50-5.40) L Hemoglobin 7.7g/dL (12.0-15.5) L Hematocrit 22.1% (36.0-47.0) L Mean Corpuscular Volume 112fL (79-100) H Mean Corpuscular Hemoglobin 39pg (25-35) H Mean Corpuscular Hemoglobin Concent 35g/dL (31-37) Red Cell Distribution Width 19.6% (11.5-14.5) H Platelet Count 428x10^3/uL (140-400) H Neutrophils (%) (Auto) 49% (31-73) Lymphocytes (%) (Auto) 33% (24-48) Monocytes (%) (Auto) 14% (0-9) H Eosinophils (%) (Auto) 4% (0-3) H Basophils (%) (Auto) 1% (0-3) Neutrophils # (Auto) 6.4x10^3uL (1.8-7.7) Lymphocytes # (Auto) 4.3x10^3/uL (1.0-4.8) Monocytes # (Auto) 1.9x10^3/uL (0.0-1.1) H Eosinophils # (Auto) 0.5x10^3/uL (0.0-0.7) Basophils # (Auto) 0.1x10^3/uL (0.0-0.2) Platelet Estimate Adequate (ADEQUATE) Polychromasia Slight Hypochromasia Mod Poikilocytosis Mod Anisocytosis Mod Macrocytosis Mod Sickle Cells Few Target Cells Occ [place] Bodies Present Reticulocyte Count (auto) 5.6% (0.5-2.5) H Sodium Level 133mmol/L (136-145) L Potassium Level 3.6mmol/L (3.5-5.1) Chloride Level 105mmol/L (98-107) Carbon Dioxide Level 24mmol/L (21-32) Anion Gap 4 (6-14) L Blood Urea Nitrogen 9mg/dL (7-20) Creatinine 0.5mg/dL (0.6-1.0) L Estimated GFR (Cockcroft-Gault) 185.0 Glucose Level 88mg/dL (70-99) Calcium Level 8.6mg/dL (8.5-10.1) Laboratory Tests 01/21/17 21:25 Laboratory Tests 01/21/17 21:25 EKG EKG Interpreted by me: Heart rate 77, sinus rhythm, normal intervals, normal axis, no acute ST/T-wave abnormalities present [] Radiology/Procedures Radiology/Procedures Not performed [] Course & Med Decision Making Course & Med Decision Making Pertinent Labs and Imaging studies reviewed. (See chart for details) Patient's exam was unremarkable. Patient's lab work was reviewed and compared to previous labs and found to be stable. Patient does not appear in extremis at this time. The patient was treated with IM morphine to assist with pain control. Patient was also given 1 dose of oral Dilaudid. I explained to the patient that for any further narcotic pain medication prescriptions she would need to abide by what was recommended at previous visits and secure primary care follow-up for continued monitoring and treatment of her chronic condition. I explained to the patient that continued use of the emergency department for treatment of chronic pain was not adequate or appropriate care for her condition. The patient was provided with a brochure including the phone number for the family medicine clinic here [facility] and patient was urged to call this number to make an appointment. The patient was advised to return to emergency department for any worsening symptoms. Patient voiced understanding and in agreement with treatment plan. Dragon Disclaimer Dragon Disclaimer This electronic medical record was generated, in whole or in part, using a voice recognition dictation system. Departure Departure Impression: Primary Impression: Sickle cell pain crisis Disposition: ADMITTED INPATIENT Condition: IMPROVED Referrals: NO PCP (PCP) Patient Instructions: Chronic Pain, Sickle Cell Pain Crisis Additional Instructions: Follow-up with your primary doctor in 3-5 days. Return to the emergency department for any worsening symptoms. MAYELA SEGOVIA MD Jan 21, 2017 20:07
[2017-01-21] MEDS ORDERED: ONDANSETRON ODT 4 MG TAB.RAPDIS. PO ONE (20:15)
[2017-01-21] MEDS ORDERED: MORPHINE SULFATE 10 MG/ML VIAL. IM ONE (20:15)
--- NOTE | 2017-01-21 21:12 | EKG ---
[facility] [address] [place] [address] Test Date: 2017-01-21 Test Time: 20:49:17 Pat Name: BHAVESH CERVANTES Department: Room: Gender: F Guide Visitor: : [id number] Requested By: MAYELA SEGOVIA Order Number: [id number] Reading MD: Chris Francisco Measurements Intervals [place] Rate: 77 P: 35 MN: 154 QRS: 51 QRSD: 68 T: 24 QT: 408 QTc: 464 Interpretive Statements SINUS RHYTHM Electronically Signed On 01-22-2017 8:29:44 CDT by Chris Francisco
[2017-01-21 21:33] LABS: BASO # 0.1 x10^3/uL (0.0-0.2); BASO % 1 % (0-3); EOS % 4 % (0-3); HEMATOCRIT 22.1 % (36.0-47.0); HEMOGLOBIN 7.7 g/dL (12.0-15.5); LYMPH # 4.3 x10^3/uL (1.0-4.8); LYMPH % 33 % (24-48); MEAN CORPUSCULAR HEMOGLOBIN 39 pg (25-35); MEAN CORPUSCULAR HGB CONC 35 g/dL (31-37); MEAN CORPUSCULAR VOLUME 112 fL (79-100); MONO % 14 % (0-9); NEUT % 49 % (31-73); PLATELET COUNT 428 x10^3/uL (140-400); RED BLOOD COUNT 1.97 x10^6/uL (3.50-5.40); RED CELL DISTRIBUTION WIDTH 19.6 % (11.5-14.5); WHITE BLOOD COUNT 13.2 x10^3/uL (4.0-11.0)
[2017-01-21 21:35] LABS: RETIC COUNT 5.6 % (0.5-2.5)
[2017-01-21 21:42] LABS: CALCIUM 8.6 mg/dL (8.5-10.1); CREATININE 0.5 mg/dL (0.6-1.0); POTASSIUM 3.6 mmol/L (3.5-5.1)
[2017-01-21 22:14] LABS: ANISOCYTOSIS MOD; HYPOCHROMIA MOD; PLT ESTIMATE ADEQUATE (ADEQUATE); POIKILOCYTOSIS MOD; POLYCHROMASIA SLIGHT; SICKLE CELLS FEW; TARGET CELLS OCC
[2017-01-21 22:15] LABS: HOWELL-JOLLY BODIES PRESENT
[2017-01-21 22:23] VITALS: BP 100/58
[2017-01-21] MEDS ORDERED: HYDROMORPHONE 4 MG TABLET. PO ONE (22:30)
== END 2017-01-21 22:31 | disposition other institution (70) ==
LOC: ER 16:48
DX: D57.00 Hb-SS disease with crisis, unspecified (principal); Z88.6 Allergy status to analgesic agent; Z91.041 Radiographic dye allergy status
CPT/HCPCS: 36415; 80048; 85007; 85027; 85045; 93005; 96372; 99285; J2270; Q0162

== ENCOUNTER 2017-11-26 14:47 | Inpatient (IN) | payer OTHER ==
[2017-11-26] MEDS: IV NORMAL SALINE 1000ML BAG 1,000 ML IV ×2 (15:37→17:36)
[2017-11-26 15:41] LABS: BILIRUBIN,URINE NEGATIVE (NEG); CLARITY,URINE CLOUDY; COLOR,URINE YELLOW; GLUCOSE,URINE NEGATIVE (NEG); NITRITE,URINE NEGATIVE (NEG); PH,URINE 7.5; PROTEIN,URINE NEGATIVE (NEG-TRACE); UROBILINOGEN,URINE 0.2 mg/dL (0.2 mg/dL)
[2017-11-26 15:41] LABS: URINE HCG POC HCG NEGATIVE (Negative)
[2017-11-26] MEDS: HYDROmorphone 2 MG/ML VIAL IV/SQ ×4 (15:41→19:58)
[2017-11-26 16:05] LABS: BACTERIA,URINE 0 /HPF (0-FEW); SQUAMOUS EPITHELIAL CELL,UR OCC /LPF; WBC,URINE OCC /HPF (0-4)
[2017-11-26 16:15] LABS: ADD MAN DIFF? NO; BASO # 0.1 x10^3/uL (0.0-0.2); BASO % 1 % (0-3); EOS # 0.4 x10^3/uL (0.0-0.7); EOS % 4 % (0-3); HEMOGLOBIN 8.1 g/dL (12.0-15.5); LYMPH # 3.3 x10^3/uL (1.0-4.8); LYMPH % 29 % (24-48); MEAN CORPUSCULAR HEMOGLOBIN 36 pg (25-35); MEAN CORPUSCULAR HGB CONC 35 g/dL (31-37); MEAN CORPUSCULAR VOLUME 103 fL (79-100); MONO # 1.2 x10^3/uL (0.0-1.1); MONO % 11 % (0-9); NEUT # 6.4 x10^3uL (1.8-7.7); NEUT % 56 % (31-73); PLATELET COUNT 327 x10^3/uL (140-400); RED BLOOD COUNT 2.23 x10^6/uL (3.50-5.40); RED CELL DISTRIBUTION WIDTH 22.4 % (11.5-14.5); RETIC COUNT 6.4 % (0.5-2.5); WHITE BLOOD COUNT 11.4 x10^3/uL (4.0-11.0)
[2017-11-26 16:21] LABS: ANION GAP 9 (6-14); BLOOD UREA NITROGEN 9 mg/dL (7-20); BUN/CREATININE RATIO 15 (6-20); CALCIUM 8.9 mg/dL (8.5-10.1); CARBON DIOXIDE 25 mmol/L (21-32); CHLORIDE 103 mmol/L (98-107); CREATININE 0.6 mg/dL (0.6-1.0); GFR 148.6; GLUCOSE 92 mg/dL (70-99); POTASSIUM 4.2 mmol/L (3.5-5.1); SODIUM 137 mmol/L (136-145)
[2017-11-26 16:26] LABS: ALBUMIN 3.8 g/dL (3.4-5.0); ALBUMIN/GLOBULIN RATIO 0.8 (1.0-1.7); ALK PHOS 93 U/L (46-116); ALT (SGPT) 24 U/L (14-59); AST (SGOT) 49 U/L (15-37); TOTAL BILIRUBIN 1.2 mg/dL (0.2-1.0); TOTAL PROTEIN 8.5 g/dL (6.4-8.2)
[2017-11-26 17:37] LABS: ANISOCYTOSIS MOD; PLT ESTIMATE ADEQUATE (ADEQUATE); POLYCHROMASIA SLIGHT; SICKLE CELLS FEW; TARGET CELLS FEW
[2017-11-26] MEDS ORDERED: ONDANSETRON PF 4 MG/2 ML VIAL. IV (17:45)
[2017-11-26] MEDS: ZOLPIDEM 5 MG TABLET. PO (22:25)
[2017-11-26] MEDS: HYDROmorphone 2 MG/ML VIAL IVP (22:25)
[2017-11-27] MEDS: IV NORMAL SALINE 1000ML BAG 1,000 ML IV ×3 (02:02→15:41)
[2017-11-27] MEDS: HYDROmorphone 2 MG/ML VIAL IVP ×4 (03:06→22:49)
[2017-11-27 05:53] LABS: ADD MAN DIFF? NO
[2017-11-27 06:15] LABS: BASO # 0.1 x10^3/uL (0.0-0.2); BASO % 1 % (0-3); EOS # 0.4 x10^3/uL (0.0-0.7); EOS % 3 % (0-3); HEMATOCRIT 22.1 % (36.0-47.0); HEMOGLOBIN 7.7 g/dL (12.0-15.5); LYMPH # 3.3 x10^3/uL (1.0-4.8); LYMPH % 28 % (24-48); MEAN CORPUSCULAR HEMOGLOBIN 36 pg (25-35); MEAN CORPUSCULAR HGB CONC 35 g/dL (31-37); MEAN CORPUSCULAR VOLUME 102 fL (79-100); MONO # 1.2 x10^3/uL (0.0-1.1); MONO % 10 % (0-9); NEUT # 6.9 x10^3uL (1.8-7.7); NEUT % 58 % (31-73); PLATELET COUNT 313 x10^3/uL (140-400); RED BLOOD COUNT 2.16 x10^6/uL (3.50-5.40); RED CELL DISTRIBUTION WIDTH 21.5 % (11.5-14.5); WHITE BLOOD COUNT 11.8 x10^3/uL (4.0-11.0)
[2017-11-27 06:31] LABS: ANION GAP 7 (6-14); BLOOD UREA NITROGEN 8 mg/dL (7-20); CALCIUM 8.4 mg/dL (8.5-10.1); CARBON DIOXIDE 26 mmol/L (21-32); CHLORIDE 109 mmol/L (98-107); CREATININE 0.6 mg/dL (0.6-1.0); GFR 148.6; GLUCOSE 82 mg/dL (70-99); POTASSIUM 4.9 mmol/L (3.5-5.1); SODIUM 142 mmol/L (136-145)
[2017-11-27 09:02] LABS: RETIC COUNT 4.3 % (0.5-2.5)
[2017-11-27] MEDS ORDERED: ONDANSETRON PF 4 MG/2 ML VIAL. IV (09:15)
[2017-11-27] MEDS ORDERED: ACETAMINOPHEN 325 MG TABLET. PO (09:15)
[2017-11-27] MEDS ORDERED: MAGNESIUM HYDROXIDE 2,400 MG/30 ML ORAL.SUSP. PO (10:00)
[2017-11-27] MEDS: POLYETHYLENE GLYCOL 3350 17 GM PACKET. PO (10:00)
[2017-11-27] MEDS: FOLIC ACID 1 MG TABLET. PO (11:17)
[2017-11-27] MEDS: DOCUSATE SODIUM 100 MG CAPSULE. PO (11:17)
[2017-11-27] MEDS: MORPHINE IR 15 MG TABLET PO ×2 (11:17→20:20)
[2017-11-27] MEDS: HYDROXYUREA 500 MG CAPSULE PO (11:26)
[2017-11-27] MEDS: HYDROmorphone 4 MG TABLET PO (13:18)
[2017-11-27] MEDS: ZOLPIDEM 5 MG TABLET. PO (20:20)
[2017-11-28] MEDS: HYDROmorphone 2 MG/ML VIAL IVP ×4 (03:09→20:13)
[2017-11-28 04:27] LABS: HEMATOCRIT 21.1 % (36.0-47.0); HEMOGLOBIN 7.2 g/dL (12.0-15.5); MEAN CORPUSCULAR HGB CONC 34 g/dL (31-37)
[2017-11-28] MEDS: IBUPROFEN 400 MG TABLET. PO (08:36)
[2017-11-28] MEDS: DOCUSATE SODIUM 100 MG CAPSULE. PO (08:36)
[2017-11-28] MEDS: FOLIC ACID 1 MG TABLET. PO (08:37)
[2017-11-28] MEDS: MORPHINE IR 15 MG TABLET PO ×2 (08:37→20:05)
[2017-11-28] MEDS: HYDROXYUREA 500 MG CAPSULE PO (08:43)
[2017-11-28] MEDS: POLYETHYLENE GLYCOL 3350 17 GM PACKET. PO (08:43)
[2017-11-28] MEDS: IBUPROFEN 600 MG TABLET. PO (10:01)
[2017-11-28] MEDS: IV NORMAL SALINE 1000ML BAG 1,000 ML IV ×2 (13:43→21:59)
[2017-11-28] MEDS: ZOLPIDEM 5 MG TABLET. PO (20:05)
[2017-11-29] MEDS: HYDROmorphone 2 MG/ML VIAL IVP ×5 (00:24→23:29)
[2017-11-29] MEDS: IV NORMAL SALINE 1000ML BAG 1,000 ML IV ×3 (04:56→20:49)
[2017-11-29 05:23] LABS: MEAN CORPUSCULAR HGB CONC 35 g/dL (31-37)
[2017-11-29 05:30] LABS: RETIC COUNT 3.2 % (0.5-2.5)
[2017-11-29 05:33] LABS: HEMATOCRIT 19.1 % (36.0-47.0); HEMOGLOBIN 6.7 g/dL (12.0-15.5)
[2017-11-29] MEDS: POLYETHYLENE GLYCOL 3350 17 GM PACKET. PO (09:00)
[2017-11-29] MEDS: DOCUSATE SODIUM 100 MG CAPSULE. PO (09:31)
[2017-11-29] MEDS: FOLIC ACID 1 MG TABLET. PO (09:31)
[2017-11-29] MEDS: MORPHINE IR 15 MG TABLET PO ×2 (09:32→20:23)
[2017-11-29] MEDS: HYDROXYUREA 500 MG CAPSULE PO (09:36)
[2017-11-29] MEDS: HYDROmorphone 4 MG TABLET PO ×2 (10:43→20:23)
[2017-11-29] MEDS: ZOLPIDEM 5 MG TABLET. PO (20:22)
[2017-11-30] MEDS: IV NORMAL SALINE 1000ML BAG 1,000 ML IV ×3 (01:00→17:33)
[2017-11-30] MEDS: HYDROmorphone 2 MG/ML VIAL IVP ×3 (03:38→16:23)
[2017-11-30 04:51] LABS: CROSSMATCH AHG 1 1
[2017-11-30] MEDS: IBUPROFEN 400 MG TABLET. PO (04:55)
[2017-11-30] MEDS: diphenhydrAMINE HCL 25 MG CAPSULE PO (04:55)
[2017-11-30] MEDS: HYDROmorphone 4 MG TABLET PO ×4 (05:00→21:38)
[2017-11-30] MEDS: DOCUSATE SODIUM 100 MG CAPSULE. PO (08:34)
[2017-11-30] MEDS: FOLIC ACID 1 MG TABLET. PO (08:34)
[2017-11-30] MEDS: HYDROXYUREA 500 MG CAPSULE PO (08:34)
[2017-11-30] MEDS: MORPHINE IR 15 MG TABLET PO ×2 (08:35→21:32)
[2017-11-30] MEDS: POLYETHYLENE GLYCOL 3350 17 GM PACKET. PO (08:40)
[2017-11-30 12:07] LABS: MEAN CORPUSCULAR HGB CONC 35 g/dL (31-37)
[2017-11-30 12:12] LABS: HEMATOCRIT 19.8 % (36.0-47.0)
[2017-11-30] MEDS: ZOLPIDEM 5 MG TABLET. PO (21:38)
[2017-12-01] MEDS: IV NORMAL SALINE 1000ML BAG 1,000 ML IV ×3 (01:15→16:10)
[2017-12-01] MEDS: HYDROmorphone 2 MG/ML VIAL IVP ×5 (01:21→23:05)
[2017-12-01] MEDS: HYDROmorphone 4 MG TABLET PO ×5 (02:19→20:26)
[2017-12-01 05:49] LABS: HEMATOCRIT 21.3 % (36.0-47.0); HEMOGLOBIN 7.4 g/dL (12.0-15.5); MEAN CORPUSCULAR HGB CONC 35 g/dL (31-37)
[2017-12-01 05:54] LABS: RETIC COUNT 2.8 % (0.5-2.5)
[2017-12-01] MEDS: MORPHINE IR 15 MG TABLET PO ×2 (08:45→20:26)
[2017-12-01] MEDS: DOCUSATE SODIUM 100 MG CAPSULE. PO (08:45)
[2017-12-01] MEDS: FOLIC ACID 1 MG TABLET. PO (08:45)
[2017-12-01] MEDS: HYDROXYUREA 500 MG CAPSULE PO (08:51)
[2017-12-01] MEDS: POLYETHYLENE GLYCOL 3350 17 GM PACKET. PO (08:52)
[2017-12-01] MEDS: ZOLPIDEM 5 MG TABLET. PO (20:25)
[2017-12-02] MEDS: HYDROmorphone 4 MG TABLET PO ×6 (00:04→20:51)
[2017-12-02] MEDS: DOCUSATE SODIUM 100 MG CAPSULE. PO (08:51)
[2017-12-02] MEDS: FOLIC ACID 1 MG TABLET. PO (08:52)
[2017-12-02] MEDS: MORPHINE IR 15 MG TABLET PO ×2 (08:52→20:53)
[2017-12-02] MEDS: IV NORMAL SALINE 1000ML BAG 1,000 ML IV ×3 (08:53→16:51)
[2017-12-02] MEDS: HYDROXYUREA 500 MG CAPSULE PO (09:00)
[2017-12-02] MEDS: POLYETHYLENE GLYCOL 3350 17 GM PACKET. PO (09:00)
[2017-12-02] MEDS: fentaNYL PF VIAL 100 MCG/2 ML VIAL IV ×3 (10:56→22:21)
[2017-12-02] MEDS: ZOLPIDEM 5 MG TABLET. PO (20:53)
[2017-12-03] MEDS: IV NORMAL SALINE 1000ML BAG 1,000 ML IV ×4 (00:17→22:25)
[2017-12-03] MEDS: HYDROmorphone 4 MG TABLET PO ×6 (00:17→20:08)
[2017-12-03] MEDS: fentaNYL PF VIAL 100 MCG/2 ML VIAL IV ×4 (03:05→18:27)
[2017-12-03] MEDS: FOLIC ACID 1 MG TABLET. PO (08:08)
[2017-12-03] MEDS: MORPHINE IR 15 MG TABLET PO ×2 (08:09→20:08)
[2017-12-03] MEDS: POLYETHYLENE GLYCOL 3350 17 GM PACKET. PO (08:10)
[2017-12-03] MEDS: DOCUSATE SODIUM 100 MG CAPSULE. PO (08:10)
[2017-12-03] MEDS: HYDROXYUREA 500 MG CAPSULE PO (08:15)
[2017-12-03 12:40] LABS: HEMOGLOBIN 7.2 g/dL (12.0-15.5); MEAN CORPUSCULAR HGB CONC 34 g/dL (31-37)
[2017-12-03 12:44] LABS: RETIC COUNT 1.2 % (0.5-2.5)
[2017-12-03] MEDS: ZOLPIDEM 5 MG TABLET. PO (20:08)
[2017-12-04] MEDS: fentaNYL PF VIAL 100 MCG/2 ML VIAL IV ×3 (00:55→09:13)
[2017-12-04] MEDS: HYDROmorphone 4 MG TABLET PO ×4 (04:19→11:53)
[2017-12-04] MEDS: IV NORMAL SALINE 1000ML BAG 1,000 ML IV (05:56)
[2017-12-04] MEDS: FOLIC ACID 1 MG TABLET. PO (09:11)
[2017-12-04] MEDS: DOCUSATE SODIUM 100 MG CAPSULE. PO (09:11)
[2017-12-04] MEDS: MORPHINE IR 15 MG TABLET PO (09:12)
[2017-12-04] MEDS: POLYETHYLENE GLYCOL 3350 17 GM PACKET. PO ×2 (09:19→11:52)
[2017-12-04] MEDS: HYDROXYUREA 500 MG CAPSULE PO (09:19)
[2017-12-04] MEDS ORDERED: fentaNYL PF VIAL 100 MCG/2 ML VIAL IV (10:15)
[2017-12-04] MEDS ORDERED: MAGNESIUM HYDROXIDE 2,400 MG/30 ML ORAL.SUSP. PO (10:15)
[2017-12-04] MEDS: fentaNYL 75MCG/HR PATCH 1 PATCH PATCH.TD72 TD (11:53)
== END 2017-12-04 15:12 | disposition home or self-care (01) | DRG 812 ==
LOC: ER 14:47 → ED HOLD 17:17 → 5 SOUTH 20:47
PROC: 02HV33Z Insertion of Infusion Device into Superior Vena Cava, Percutaneous Approach (ICD-10-PCS; principal; 2017-11-26)
PROC: 30233N1 Transfusion of Nonautologous Red Blood Cells into Peripheral Vein, Percutaneous Approach (ICD-10-PCS; 2017-11-26)
PROC: 5A09357 Assistance with Respiratory Ventilation, Less than 24 Consecutive Hours, Continuous Positive Airway Pressure (ICD-10-PCS; 2017-11-26)
DX: D57.00 Hb-SS disease with crisis, unspecified (principal); D72.829 Elevated white blood cell count, unspecified; G89.29 Other chronic pain; M79.89 Other specified soft tissue disorders; F41.9 Anxiety disorder, unspecified; Z82.49 Family history of ischemic heart disease and other diseases of the circulatory system; Z87.891 Personal history of nicotine dependence; Z88.8 Allergy status to other drugs, medicaments and biological substances; Z71.89 Other specified counseling
CPT/HCPCS: 36415; 36569; 71045; 80048; 80053; 81001; 81025; 85014; 85018; 85025; 85045; 86850; 86900; 86901; 86902; 86922; 93971; 96361; 96374; 96376; 99285; 99285-25; J1170; J3010; J7030; P9016; Q0163

== ENCOUNTER 2018-01-08 15:47 | Inpatient (IN) | payer OTHER ==
[2018-01-08 18:15] LABS: BILIRUBIN,URINE NEGATIVE (NEG); CLARITY,URINE CLOUDY; COLOR,URINE YELLOW; GLUCOSE,URINE NEGATIVE (NEG); NITRITE,URINE NEGATIVE (NEG); PROTEIN,URINE NEGATIVE (NEG-TRACE)
[2018-01-08 18:15] LABS: URINE HCG POC HCG NEGATIVE (Negative)
[2018-01-08 18:20] LABS: ADD MAN DIFF? NO
[2018-01-08 18:24] LABS: BASO # 0.1 x10^3/uL (0.0-0.2); BASO % 1 % (0-3); EOS # 0.4 x10^3/uL (0.0-0.7); EOS % 3 % (0-3); HEMATOCRIT 22.5 % (36.0-47.0); HEMOGLOBIN 7.9 g/dL (12.0-15.5); LYMPH # 4.4 x10^3/uL (1.0-4.8); LYMPH % 32 % (24-48); MEAN CORPUSCULAR HEMOGLOBIN 37 pg (25-35); MEAN CORPUSCULAR HGB CONC 35 g/dL (31-37); MEAN CORPUSCULAR VOLUME 105 fL (79-100); MONO # 1.7 x10^3/uL (0.0-1.1); MONO % 12 % (0-9); NEUT # 7.3 x10^3uL (1.8-7.7); NEUT % 52 % (31-73); PLATELET COUNT 373 x10^3/uL (140-400); RED BLOOD COUNT 2.14 x10^6/uL (3.50-5.40); RED CELL DISTRIBUTION WIDTH 19.4 % (11.5-14.5)
[2018-01-08 18:29] LABS: RETIC COUNT 6.1 % (0.5-2.5)
[2018-01-08 18:36] LABS: BACTERIA,URINE 0 /HPF (0-FEW); RBC,URINE 0 /HPF (0-2); SQUAMOUS EPITHELIAL CELL,UR FEW /LPF; WBC,URINE 0 /HPF (0-4)
[2018-01-08 18:37] LABS: LACTATE DEHYDROGENASE 412 U/L (81-234)
[2018-01-08 18:37] LABS: ANION GAP 10 (6-14); BLOOD UREA NITROGEN 8 mg/dL (7-20); BUN/CREATININE RATIO 16 (6-20); CALCIUM 8.8 mg/dL (8.5-10.1); CARBON DIOXIDE 22 mmol/L (21-32); CHLORIDE 109 mmol/L (98-107); CREATININE 0.5 mg/dL (0.6-1.0); GFR 183.4; GLUCOSE 95 mg/dL (70-99); POTASSIUM 4.9 mmol/L (3.5-5.1); SODIUM 141 mmol/L (136-145)
[2018-01-08 18:42] LABS: ALBUMIN 3.6 g/dL (3.4-5.0); ALBUMIN/GLOBULIN RATIO 0.9 (1.0-1.7); ALK PHOS 102 U/L (46-116); ALT (SGPT) 20 U/L (14-59); AST (SGOT) 30 U/L (15-37); TOTAL BILIRUBIN 1.8 mg/dL (0.2-1.0); TOTAL PROTEIN 7.8 g/dL (6.4-8.2)
[2018-01-08] MEDS: IV NORMAL SALINE 1000ML BAG 1,000 ML IV ×3 (18:45→23:02)
[2018-01-08] MEDS: HYDROmorphone 2 MG/ML VIAL IV ×2 (18:48→20:36)
[2018-01-08 19:30] LABS: ANISOCYTOSIS MOD; PLT ESTIMATE ADEQUATE (ADEQUATE); POIKILOCYTOSIS MOD
[2018-01-08 19:31] LABS: OVALOCYTES MOD; SICKLE CELLS FEW; TARGET CELLS FEW
[2018-01-08] MEDS: HYDROmorphone 4 MG TABLET PO (23:45)
[2018-01-09] MEDS: ZOLPIDEM 5 MG TABLET. PO ×2 (00:09→20:40)
[2018-01-09] MEDS: fentaNYL PF VIAL 100 MCG/2 ML VIAL IV (00:11)
[2018-01-09 03:55] LABS: ADD MAN DIFF? NO
[2018-01-09 04:13] LABS: BASO # 0.1 x10^3/uL (0.0-0.2); BASO % 1 % (0-3); EOS # 0.4 x10^3/uL (0.0-0.7); EOS % 3 % (0-3); HEMOGLOBIN 7.3 g/dL (12.0-15.5); LYMPH % 40 % (24-48); MEAN CORPUSCULAR HEMOGLOBIN 37 pg (25-35); MEAN CORPUSCULAR HGB CONC 35 g/dL (31-37); MEAN CORPUSCULAR VOLUME 105 fL (79-100); MONO # 1.6 x10^3/uL (0.0-1.1); MONO % 11 % (0-9); NEUT % 46 % (31-73); PLATELET COUNT 321 x10^3/uL (140-400); RED BLOOD COUNT 1.98 x10^6/uL (3.50-5.40); RED CELL DISTRIBUTION WIDTH 19.9 % (11.5-14.5); WHITE BLOOD COUNT 15.1 x10^3/uL (4.0-11.0)
[2018-01-09 04:31] LABS: HEMATOCRIT 20.8 % (36.0-47.0)
[2018-01-09 04:33] LABS: ALBUMIN 3.2 g/dL (3.4-5.0); ALBUMIN/GLOBULIN RATIO 0.9 (1.0-1.7); ALK PHOS 95 U/L (46-116); ALT (SGPT) 20 U/L (14-59); ANION GAP 8 (6-14); AST (SGOT) 36 U/L (15-37); BLOOD UREA NITROGEN 7 mg/dL (7-20); BUN/CREATININE RATIO 18 (6-20); CALCIUM 8.5 mg/dL (8.5-10.1); CARBON DIOXIDE 22 mmol/L (21-32); CHLORIDE 111 mmol/L (98-107); CREATININE 0.4 mg/dL (0.6-1.0); GFR 237.3; GLUCOSE 81 mg/dL (70-99); POTASSIUM 4.8 mmol/L (3.5-5.1); SODIUM 141 mmol/L (136-145); TOTAL BILIRUBIN 1.8 mg/dL (0.2-1.0); TOTAL PROTEIN 6.9 g/dL (6.4-8.2)
[2018-01-09] MEDS: IV NORMAL SALINE 1000ML BAG 1,000 ML IV ×2 (06:48→15:10)
[2018-01-09] MEDS: FOLIC ACID 1 MG TABLET. PO (10:15)
[2018-01-09] MEDS: HYDROmorphone 4 MG TABLET PO ×3 (10:15→20:40)
[2018-01-09] MEDS: MORPHINE ER 30 MG TABLET.ER PO ×2 (10:15→20:35)
[2018-01-09] MEDS ORDERED: diphenhydrAMINE HCL 25 MG CAPSULE PO (12:45)
[2018-01-09] MEDS ORDERED: fentaNYL PF VIAL 100 MCG/2 ML VIAL IV (12:45)
[2018-01-09] MEDS: HYDROXYUREA 500 MG CAPSULE PO (14:47)
[2018-01-09] MEDS: MORPHINE IR 15 MG TABLET PO (15:10)
[2018-01-09] MEDS ORDERED: MORPHINE SULFATE 4 MG/ML DISP.SYRIN. IV (15:30)
[2018-01-09] MEDS ORDERED: traMADol 50 MG TABLET PO (15:30)
[2018-01-09] MEDS: IV 1/2 NORMAL SALINE 1,000 ML IV ×2 (15:30→23:30)
[2018-01-09] MEDS ORDERED: hydrALAZINE 20 MG/ML VIAL. IVP (15:30)
[2018-01-09] MEDS ORDERED: ONDANSETRON PF 4 MG/2 ML VIAL. IV (15:30)
[2018-01-09] MEDS: ONDANSETRON PF 4 MG/2 ML VIAL. IV (17:18)
[2018-01-09] MEDS: ENOXAPARIN 40 MG/0.4 ML SYRINGE. SQ (17:18)
[2018-01-10] MEDS: HYDROmorphone 4 MG TABLET PO ×7 (01:27→23:41)
[2018-01-10] MEDS: FOLIC ACID 1 MG TABLET. PO (09:03)
[2018-01-10] MEDS: MORPHINE ER 30 MG TABLET.ER PO ×2 (09:03→21:00)
[2018-01-10] MEDS: HYDROXYUREA 500 MG CAPSULE PO (09:07)
[2018-01-10 09:29] LABS: ADD MAN DIFF? NO
[2018-01-10 09:35] LABS: BASO % 0 % (0-3); EOS # 0.4 x10^3/uL (0.0-0.7); EOS % 3 % (0-3); HEMOGLOBIN 7.3 g/dL (12.0-15.5); LYMPH # 1.6 x10^3/uL (1.0-4.8); LYMPH % 12 % (24-48); MEAN CORPUSCULAR HEMOGLOBIN 38 pg (25-35); MEAN CORPUSCULAR HGB CONC 36 g/dL (31-37); MEAN CORPUSCULAR VOLUME 105 fL (79-100); MONO # 0.4 x10^3/uL (0.0-1.1); MONO % 3 % (0-9); NEUT # 10.7 x10^3uL (1.8-7.7); NEUT % 81 % (31-73); PLATELET COUNT 313 x10^3/uL (140-400); RED BLOOD COUNT 1.94 x10^6/uL (3.50-5.40); RED CELL DISTRIBUTION WIDTH 19.3 % (11.5-14.5); WHITE BLOOD COUNT 13.2 x10^3/uL (4.0-11.0)
[2018-01-10 09:42] LABS: ANION GAP 10 (6-14); BLOOD UREA NITROGEN 5 mg/dL (7-20); CALCIUM 8.3 mg/dL (8.5-10.1); CARBON DIOXIDE 23 mmol/L (21-32); CHLORIDE 107 mmol/L (98-107); CREATININE 0.5 mg/dL (0.6-1.0); GFR 183.4; GLUCOSE 100 mg/dL (70-99); POTASSIUM 4.2 mmol/L (3.5-5.1); SODIUM 140 mmol/L (136-145)
[2018-01-10 09:44] LABS: HEMATOCRIT 20.4 % (36.0-47.0)
[2018-01-10] MEDS: IV 1/2 NORMAL SALINE 1,000 ML IV ×3 (11:56→19:51)
[2018-01-10] MEDS ORDERED: MORPHINE SULFATE 4 MG/ML DISP.SYRIN. IV (12:00)
[2018-01-10] MEDS: MORPHINE IR 15 MG TABLET PO (12:54)
[2018-01-10] MEDS: ENOXAPARIN 40 MG/0.4 ML SYRINGE. SQ (16:53)
[2018-01-10] MEDS: ZOLPIDEM 5 MG TABLET. PO (19:50)
[2018-01-11] MEDS: HYDROmorphone 4 MG TABLET PO ×5 (03:36→21:04)
[2018-01-11] MEDS: FOLIC ACID 1 MG TABLET. PO (09:42)
[2018-01-11] MEDS: MORPHINE ER 30 MG TABLET.ER PO ×2 (09:42→22:42)
[2018-01-11] MEDS: HYDROXYUREA 500 MG CAPSULE PO (09:50)
[2018-01-11] MEDS: IV 1/2 NORMAL SALINE 1,000 ML IV ×2 (10:09→16:52)
[2018-01-11] MEDS: ENOXAPARIN 40 MG/0.4 ML SYRINGE. SQ (16:51)
[2018-01-11] MEDS: ZOLPIDEM 5 MG TABLET. PO (21:04)
[2018-01-11] MEDS: DOCUSATE SODIUM 100 MG CAPSULE. PO (21:04)
[2018-01-12] MEDS: IV 1/2 NORMAL SALINE 1,000 ML IV ×4 (00:16→23:46)
[2018-01-12] MEDS: HYDROmorphone 4 MG TABLET PO ×6 (03:00→20:17)
[2018-01-12] MEDS: MORPHINE ER 30 MG TABLET.ER PO ×2 (08:14→21:30)
[2018-01-12] MEDS: FOLIC ACID 1 MG TABLET. PO (08:15)
[2018-01-12] MEDS: HYDROXYUREA 500 MG CAPSULE PO (08:22)
[2018-01-12] MEDS: ENOXAPARIN 40 MG/0.4 ML SYRINGE. SQ (15:49)
[2018-01-12] MEDS: ZOLPIDEM 5 MG TABLET. PO ×2 (20:24→21:27)
[2018-01-13] MEDS: MORPHINE ER 30 MG TABLET.ER PO (01:30)
[2018-01-13] MEDS: HYDROmorphone 4 MG TABLET PO ×5 (03:02→15:40)
[2018-01-13] MEDS: IV 1/2 NORMAL SALINE 1,000 ML IV ×2 (07:53→15:30)
[2018-01-13] MEDS: FOLIC ACID 1 MG TABLET. PO (07:54)
[2018-01-13] MEDS: HYDROXYUREA 500 MG CAPSULE PO (08:00)
[2018-01-13] MEDS: ENOXAPARIN 40 MG/0.4 ML SYRINGE. SQ (15:34)
== END 2018-01-13 19:16 | disposition home or self-care (01) | DRG 812 ==
LOC: 6 SOUTH 22:33 → ER 15:47 → 6 SOUTH 21:00
DX: D57.00 Hb-SS disease with crisis, unspecified (principal); F11.20 Opioid dependence, uncomplicated; G89.29 Other chronic pain; Z82.49 Family history of ischemic heart disease and other diseases of the circulatory system; Z83.3 Family history of diabetes mellitus; Z87.891 Personal history of nicotine dependence; Z88.8 Allergy status to other drugs, medicaments and biological substances; Z91.041 Radiographic dye allergy status
CPT/HCPCS: 36415; 80048; 80053; 81001; 81025; 83615; 85025; 85045; 96361; 96374; 96375; 99285; 99285-25; J1170; J1650; J2405; J3010; J7030

== ENCOUNTER 2018-01-29 11:34 | Inpatient (IN) | payer OTHER ==
[2018-01-29] MEDS: ONDANSETRON PF 4 MG/2 ML VIAL. IV (13:08)
[2018-01-29] MEDS: MORPHINE SULFATE 4 MG/ML DISP.SYRIN. IV/SQ ×3 (13:08→15:22)
[2018-01-29] MEDS: IV NORMAL SALINE 1000ML BAG 1,000 ML IV ×3 (13:09→20:44)
[2018-01-29 13:21] LABS: ADD MAN DIFF? NO
[2018-01-29 13:24] LABS: BASO # 0.1 x10^3/uL (0.0-0.2); BASO % 1 % (0-3); EOS # 0.6 x10^3/uL (0.0-0.7); EOS % 6 % (0-3); HEMATOCRIT 24.4 % (36.0-47.0); HEMOGLOBIN 8.6 g/dL (12.0-15.5); LYMPH # 2.8 x10^3/uL (1.0-4.8); LYMPH % 27 % (24-48); MEAN CORPUSCULAR HEMOGLOBIN 37 pg (25-35); MEAN CORPUSCULAR HGB CONC 35 g/dL (31-37); MEAN CORPUSCULAR VOLUME 104 fL (79-100); MONO % 10 % (0-9); NEUT # 5.8 x10^3uL (1.8-7.7); NEUT % 56 % (31-73); PLATELET COUNT 621 x10^3/uL (140-400); RED BLOOD COUNT 2.35 x10^6/uL (3.50-5.40); RED CELL DISTRIBUTION WIDTH 17.8 % (11.5-14.5); RETIC COUNT 7.2 % (0.5-2.5); WHITE BLOOD COUNT 10.3 x10^3/uL (4.0-11.0)
[2018-01-29 13:39] LABS: ANION GAP 5 (6-14); BLOOD UREA NITROGEN 6 mg/dL (7-20); BUN/CREATININE RATIO 10 (6-20); CALCIUM 8.8 mg/dL (8.5-10.1); CARBON DIOXIDE 27 mmol/L (21-32); CHLORIDE 105 mmol/L (98-107); CREATININE 0.6 mg/dL (0.6-1.0); GFR 148.6; GLUCOSE 92 mg/dL (70-99); POTASSIUM 4.6 mmol/L (3.5-5.1); SODIUM 137 mmol/L (136-145)
[2018-01-29 13:44] LABS: ALBUMIN 3.6 g/dL (3.4-5.0); ALBUMIN/GLOBULIN RATIO 0.7 (1.0-1.7); ALK PHOS 88 U/L (46-116); ALT (SGPT) 18 U/L (14-59); AST (SGOT) 34 U/L (15-37); TOTAL BILIRUBIN 1.7 mg/dL (0.2-1.0); TOTAL PROTEIN 8.9 g/dL (6.4-8.2)
[2018-01-29] MEDS ORDERED: ACETAMINOPHEN 325 MG TABLET. PO (14:45)
[2018-01-29] MEDS ORDERED: MORPHINE SULFATE 4 MG/ML DISP.SYRIN. IV ×2 (14:45→15:00)
[2018-01-29] MEDS ORDERED: ONDANSETRON ODT 4 MG TAB.RAPDIS. PO (14:45)
[2018-01-29] MEDS ORDERED: MAGNESIUM HYDROXIDE 2,400 MG/30 ML ORAL.SUSP. PO (14:45)
[2018-01-29] MEDS ORDERED: fentaNYL PF VIAL 100 MCG/2 ML VIAL IV (14:45)
[2018-01-29] MEDS ORDERED: diphenhydrAMINE HCL 25 MG CAPSULE PO (14:45)
[2018-01-29] MEDS ORDERED: IV NORMAL SALINE 1000ML BAG 1,000 ML IV (14:48)
[2018-01-29] MEDS ORDERED: ONDANSETRON PF 4 MG/2 ML VIAL. IV (15:00)
[2018-01-29] MEDS ORDERED: HYDROmorphone 4 MG TABLET PO (17:00)
[2018-01-29] MEDS: HYDROmorphone 4 MG TABLET PO ×2 (18:51→20:00)
[2018-01-29] MEDS ORDERED: NICOTINE 21MG PATCH. TD (19:45)
[2018-01-29] MEDS: ZOLPIDEM 5 MG TABLET. PO ×2 (20:35→20:41)
[2018-01-29] MEDS: oxyCODONE ER 15 MG TAB.ER.12H PO (20:36)
[2018-01-29] MEDS ORDERED: MORPHINE IR 15 MG TABLET PO (21:00)
[2018-01-29] MEDS ORDERED: MORPHINE ER 30 MG TABLET.ER PO (21:00)
[2018-01-29] MEDS ORDERED: ZOLPIDEM 5 MG TABLET. PO ×2 (21:00)
[2018-01-30] MEDS: HYDROmorphone 4 MG TABLET PO ×7 (03:13→23:54)
[2018-01-30] MEDS: IV NORMAL SALINE 1000ML BAG 1,000 ML IV ×4 (03:14→23:54)
[2018-01-30 06:13] LABS: ADD MAN DIFF? NO
[2018-01-30 06:22] LABS: BASO % 0 % (0-3); EOS # 0.5 x10^3/uL (0.0-0.7); EOS % 4 % (0-3); HEMOGLOBIN 7.1 g/dL (12.0-15.5); LYMPH # 3.8 x10^3/uL (1.0-4.8); LYMPH % 32 % (24-48); MEAN CORPUSCULAR HEMOGLOBIN 37 pg (25-35); MEAN CORPUSCULAR HGB CONC 36 g/dL (31-37); MEAN CORPUSCULAR VOLUME 104 fL (79-100); MONO # 1.2 x10^3/uL (0.0-1.1); MONO % 10 % (0-9); NEUT # 6.4 x10^3uL (1.8-7.7); NEUT % 54 % (31-73); PLATELET COUNT 474 x10^3/uL (140-400); RED CELL DISTRIBUTION WIDTH 18.3 % (11.5-14.5); WHITE BLOOD COUNT 11.9 x10^3/uL (4.0-11.0)
[2018-01-30 06:30] LABS: RETIC COUNT 3.4 % (0.5-2.5)
[2018-01-30 06:32] LABS: HEMATOCRIT 19.8 % (36.0-47.0)
[2018-01-30 06:46] LABS: ANION GAP 8 (6-14); BLOOD UREA NITROGEN 8 mg/dL (7-20); CALCIUM 8.1 mg/dL (8.5-10.1); CARBON DIOXIDE 25 mmol/L (21-32); CHLORIDE 107 mmol/L (98-107); CREATININE 0.6 mg/dL (0.6-1.0); GFR 148.6; GLUCOSE 88 mg/dL (70-99); POTASSIUM 4.7 mmol/L (3.5-5.1); SODIUM 140 mmol/L (136-145)
[2018-01-30] MEDS: oxyCODONE/APAP 10/325 1 TAB TABLET PO (07:21)
[2018-01-30] MEDS: FOLIC ACID 1 MG TABLET. PO (08:34)
[2018-01-30] MEDS: DOCUSATE SODIUM 100 MG CAPSULE. PO (08:34)
[2018-01-30] MEDS: oxyCODONE ER 15 MG TAB.ER.12H PO ×2 (08:35→20:01)
[2018-01-30] MEDS: HYDROXYUREA 500 MG CAPSULE PO (08:40)
[2018-01-30] MEDS ORDERED: HYDROXYUREA 500 MG CAPSULE PO (09:00)
[2018-01-30] MEDS: POLYETHYLENE GLYCOL 3350 17 GM PACKET. PO (09:00)
[2018-01-30] MEDS: MORPHINE SULFATE 4 MG/ML DISP.SYRIN. IV ×2 (09:57→16:00)
[2018-01-30] MEDS: ONDANSETRON PF 4 MG/2 ML VIAL. IV (19:41)
[2018-01-30] MEDS: ZOLPIDEM 5 MG TABLET. PO ×2 (20:01→20:06)
[2018-01-31] MEDS: oxyCODONE/APAP 10/325 1 TAB TABLET PO (01:15)
[2018-01-31] MEDS: HYDROmorphone 4 MG TABLET PO ×7 (04:00→23:35)
[2018-01-31] MEDS: IV NORMAL SALINE 1000ML BAG 1,000 ML IV ×3 (06:02→20:17)
[2018-01-31 07:28] LABS: MEAN CORPUSCULAR HEMOGLOBIN 38 pg (25-35); MEAN CORPUSCULAR HGB CONC 37 g/dL (31-37); MEAN CORPUSCULAR VOLUME 102 fL (79-100); PLATELET COUNT 416 x10^3/uL (140-400); RED BLOOD COUNT 1.77 x10^6/uL (3.50-5.40); RED CELL DISTRIBUTION WIDTH 19.2 % (11.5-14.5); WHITE BLOOD COUNT 14.6 x10^3/uL (4.0-11.0)
[2018-01-31 07:35] LABS: HEMOGLOBIN 6.6 g/dL (12.0-15.5)
[2018-01-31 07:36] LABS: HEMATOCRIT 18.1 % (36.0-47.0)
[2018-01-31] MEDS: oxyCODONE ER 15 MG TAB.ER.12H PO ×2 (08:56→21:57)
[2018-01-31] MEDS: DOCUSATE SODIUM 100 MG CAPSULE. PO (08:57)
[2018-01-31] MEDS: FOLIC ACID 1 MG TABLET. PO ×2 (08:57→16:05)
[2018-01-31] MEDS: HYDROXYUREA 500 MG CAPSULE PO (08:58)
[2018-01-31] MEDS: POLYETHYLENE GLYCOL 3350 17 GM PACKET. PO (09:00)
[2018-01-31] MEDS: MORPHINE SULFATE 4 MG/ML DISP.SYRIN. IV (12:48)
[2018-01-31] MEDS: VITAMIN B12,B9,B6 COMPLEX 1 TABLET. PO (16:37)
[2018-01-31] MEDS: ZOLPIDEM 5 MG TABLET. PO ×2 (20:22→20:23)
[2018-01-31 23:29] LABS: BILIRUBIN,URINE NEGATIVE (NEG); CLARITY,URINE CLEAR; COLOR,URINE YELLOW; GLUCOSE,URINE NEGATIVE (NEG); NITRITE,URINE NEGATIVE (NEG); PROTEIN,URINE NEGATIVE (NEG-TRACE)
[2018-01-31 23:38] LABS: BACTERIA,URINE FEW /HPF (0-FEW); RBC,URINE 0 /HPF (0-2); SQUAMOUS EPITHELIAL CELL,UR MOD /LPF; WBC,URINE 0 /HPF (0-4)
[2018-02-01] MEDS: IV NORMAL SALINE 1000ML BAG 1,000 ML IV (04:50)
[2018-02-01] MEDS: HYDROmorphone 4 MG TABLET PO ×5 (04:51→21:42)
[2018-02-01 08:22] LABS: ADD MAN DIFF? NO
[2018-02-01] MEDS: oxyCODONE ER 15 MG TAB.ER.12H PO ×2 (08:29→21:42)
[2018-02-01 08:31] LABS: BASO # 0.1 x10^3/uL (0.0-0.2); BASO % 1 % (0-3); EOS % 7 % (0-3); LYMPH # 2.9 x10^3/uL (1.0-4.8); LYMPH % 19 % (24-48); MEAN CORPUSCULAR HEMOGLOBIN 37 pg (25-35); MEAN CORPUSCULAR HGB CONC 36 g/dL (31-37); MEAN CORPUSCULAR VOLUME 103 fL (79-100); MONO # 1.5 x10^3/uL (0.0-1.1); MONO % 10 % (0-9); NEUT # 9.6 x10^3uL (1.8-7.7); NEUT % 63 % (31-73); PLATELET COUNT 339 x10^3/uL (140-400); RED BLOOD COUNT 1.65 x10^6/uL (3.50-5.40); RED CELL DISTRIBUTION WIDTH 19.4 % (11.5-14.5); RETIC COUNT 7.3 % (0.5-2.5); WHITE BLOOD COUNT 15.2 x10^3/uL (4.0-11.0)
[2018-02-01] MEDS: VITAMIN B12,B9,B6 COMPLEX 1 TABLET. PO (08:31)
[2018-02-01] MEDS: FOLIC ACID 1 MG TABLET. PO (08:32)
[2018-02-01] MEDS: DOCUSATE SODIUM 100 MG CAPSULE. PO (08:32)
[2018-02-01 08:39] LABS: HEMOGLOBIN 6.1 g/dL (12.0-15.5)
[2018-02-01] MEDS: POLYETHYLENE GLYCOL 3350 17 GM PACKET. PO (08:39)
[2018-02-01] MEDS: HYDROXYUREA 500 MG CAPSULE PO (08:39)
[2018-02-01 08:59] LABS: ALBUMIN 3.1 g/dL (3.4-5.0); ALBUMIN/GLOBULIN RATIO 0.7 (1.0-1.7); ALK PHOS 78 U/L (46-116); ALT (SGPT) 19 U/L (14-59); ANION GAP 5 (6-14); AST (SGOT) 38 U/L (15-37); BLOOD UREA NITROGEN 6 mg/dL (7-20); BUN/CREATININE RATIO 10 (6-20); CALCIUM 8.7 mg/dL (8.5-10.1); CARBON DIOXIDE 28 mmol/L (21-32); CHLORIDE 105 mmol/L (98-107); CREATININE 0.6 mg/dL (0.6-1.0); GFR 148.6; GLUCOSE 85 mg/dL (70-99); POTASSIUM 4.1 mmol/L (3.5-5.1); SODIUM 138 mmol/L (136-145); TOTAL BILIRUBIN 1.7 mg/dL (0.2-1.0); TOTAL PROTEIN 7.5 g/dL (6.4-8.2)
[2018-02-01] MEDS: IV 1/2 NORMAL SALINE 1,000 ML IV ×2 (10:42→17:36)
[2018-02-01] MEDS: MORPHINE SULFATE 4 MG/ML DISP.SYRIN. IV ×2 (10:50→17:41)
[2018-02-01] MEDS: ZOLPIDEM 5 MG TABLET. PO ×2 (23:27)
[2018-02-02] MEDS: HYDROmorphone 4 MG TABLET PO ×4 (01:18→12:03)
[2018-02-02] MEDS: VITAMIN B12,B9,B6 COMPLEX 1 TABLET. PO (08:41)
[2018-02-02] MEDS: FOLIC ACID 1 MG TABLET. PO (08:42)
[2018-02-02] MEDS: oxyCODONE ER 15 MG TAB.ER.12H PO (08:44)
[2018-02-02] MEDS: HYDROXYUREA 500 MG CAPSULE PO (08:44)
[2018-02-02] MEDS: POLYETHYLENE GLYCOL 3350 17 GM PACKET. PO (08:45)
[2018-02-02] MEDS: DOCUSATE SODIUM 100 MG CAPSULE. PO (08:46)
[2018-02-02] MEDS: IV 1/2 NORMAL SALINE 1,000 ML IV ×2 (08:47→09:30)
[2018-02-02 09:08] LABS: ADD MAN DIFF? NO
[2018-02-02 09:35] LABS: BASO # 0.1 x10^3/uL (0.0-0.2); BASO % 1 % (0-3); EOS % 7 % (0-3); LYMPH # 2.2 x10^3/uL (1.0-4.8); LYMPH % 16 % (24-48); MEAN CORPUSCULAR HEMOGLOBIN 36 pg (25-35); MEAN CORPUSCULAR HGB CONC 35 g/dL (31-37); MEAN CORPUSCULAR VOLUME 104 fL (79-100); MONO # 1.8 x10^3/uL (0.0-1.1); MONO % 13 % (0-9); NEUT # 8.8 x10^3uL (1.8-7.7); NEUT % 64 % (31-73); PLATELET COUNT 343 x10^3/uL (140-400); RED BLOOD COUNT 1.76 x10^6/uL (3.50-5.40); RED CELL DISTRIBUTION WIDTH 19.4 % (11.5-14.5); WHITE BLOOD COUNT 13.8 x10^3/uL (4.0-11.0)
[2018-02-02 09:46] LABS: RETIC COUNT 4.4 % (0.5-2.5)
[2018-02-02 09:48] LABS: HEMATOCRIT 18.2 % (36.0-47.0); HEMOGLOBIN 6.4 g/dL (12.0-15.5)
[2018-02-02] MEDS: MORPHINE SULFATE 4 MG/ML DISP.SYRIN. IV (10:09)
[2018-02-02 12:50] LABS: PLT ESTIMATE ADEQUATE (ADEQUATE)
[2018-02-02 12:51] LABS: ANISOCYTOSIS MOD
[2018-02-02 12:55] LABS: SICKLE CELLS FEW
[2018-02-02 12:57] LABS: HYPOCHROMIA MARKED
== END 2018-02-02 12:00 | disposition home or self-care (01) | DRG 812 ==
LOC: ER 11:34 → 5 SOUTH 14:36
DX: D57.00 Hb-SS disease with crisis, unspecified (principal); F11.20 Opioid dependence, uncomplicated; G89.29 Other chronic pain; Z88.8 Allergy status to other drugs, medicaments and biological substances; Z83.3 Family history of diabetes mellitus; Z82.49 Family history of ischemic heart disease and other diseases of the circulatory system
CPT/HCPCS: 36415; 80048; 80053; 81001; 85025; 85027; 85045; 96361; 96374; 96375; 96376; 99285-25; J2270; J2405; J7030

== ENCOUNTER 2018-02-25 15:30 | Emergency (ER) | payer OTHER ==
[2018-02-25 17:03] LABS: ADD MAN DIFF? NO
[2018-02-25 17:07] LABS: BASO # 0.1 x10^3/uL (0.0-0.2); BASO % 1 % (0-3); EOS # 0.6 x10^3/uL (0.0-0.7); EOS % 5 % (0-3); HEMATOCRIT 24.2 % (36.0-47.0); HEMOGLOBIN 8.6 g/dL (12.0-15.5); LYMPH # 3.6 x10^3/uL (1.0-4.8); LYMPH % 32 % (24-48); MEAN CORPUSCULAR HEMOGLOBIN 37 pg (25-35); MEAN CORPUSCULAR HGB CONC 36 g/dL (31-37); MEAN CORPUSCULAR VOLUME 104 fL (79-100); MONO # 0.8 x10^3/uL (0.0-1.1); MONO % 8 % (0-9); NEUT # 5.9 x10^3uL (1.8-7.7); NEUT % 54 % (31-73); PLATELET COUNT 428 x10^3/uL (140-400); RED BLOOD COUNT 2.33 x10^6/uL (3.50-5.40); RED CELL DISTRIBUTION WIDTH 18.6 % (11.5-14.5); RETIC COUNT 8.2 % (0.5-2.5)
[2018-02-25 17:12] LABS: ANION GAP 9 (6-14); BLOOD UREA NITROGEN 7 mg/dL (7-20); BUN/CREATININE RATIO 10 (6-20); CALCIUM 8.8 mg/dL (8.5-10.1); CARBON DIOXIDE 24 mmol/L (21-32); CHLORIDE 107 mmol/L (98-107); CREATININE 0.7 mg/dL (0.6-1.0); GFR 124.4; GLUCOSE 97 mg/dL (70-99); POTASSIUM 4.5 mmol/L (3.5-5.1); SODIUM 140 mmol/L (136-145)
[2018-02-25 17:18] LABS: ALBUMIN/GLOBULIN RATIO 0.8 (1.0-1.7); ALK PHOS 96 U/L (46-116); ALT (SGPT) 18 U/L (14-59); AST (SGOT) 31 U/L (15-37); TOTAL BILIRUBIN 1.5 mg/dL (0.2-1.0)
[2018-02-25] MEDS: ONDANSETRON PF 4 MG/2 ML VIAL. IV (17:36)
[2018-02-25] MEDS: fentaNYL PF VIAL 100 MCG/2 ML VIAL IV ×2 (17:36→19:08)
[2018-02-25] MEDS: IV NORMAL SALINE 1000ML BAG 1,000 ML IV (17:37)
[2018-02-25 18:03] LABS: BILIRUBIN,URINE NEGATIVE (NEG); COLOR,URINE YELLOW; GLUCOSE,URINE NEGATIVE (NEG); NITRITE,URINE NEGATIVE (NEG); PROTEIN,URINE NEGATIVE (NEG-TRACE)
[2018-02-25 18:12] LABS: AMORPHOUS SEDIMENT,UR PRESENT /HPF; BACTERIA,URINE FEW /HPF (0-FEW); CLARITY,URINE HAZY; RBC,URINE 0 /HPF (0-2); SQUAMOUS EPITHELIAL CELL,UR FEW /LPF; WBC,URINE 0 /HPF (0-4)
[2018-02-25 18:13] LABS: NEG OBC UR NEG; POS OBC UR POS; U PREG PATIENT NEGATIVE (NEG)
== END 2018-02-25 20:10 | disposition home or self-care (01) ==
LOC: ER 15:30
DX: D57.00 Hb-SS disease with crisis, unspecified (principal)
CPT/HCPCS: 36415; 80053; 81001; 81025; 85025; 85045; 96374; 96375; 96376; 99284-25; J2405; J3010; J7030

== ENCOUNTER 2018-02-28 18:58 | Emergency (ER) | payer OTHER ==
[2018-02-28] MEDS: IV NORMAL SALINE 1000ML BAG 1,000 ML IV (19:35)
[2018-02-28] MEDS: diphenhydrAMINE 50 MG/ML VIAL IVP (19:35)
[2018-02-28] MEDS: fentaNYL PF VIAL 100 MCG/2 ML VIAL IV ×3 (19:35→22:15)
[2018-02-28] MEDS: KETOROLAC 30 MG/ML INJ. IV (19:35)
[2018-02-28] MEDS: diphenhydrAMINE 50 MG/ML VIAL IM (19:45)
[2018-02-28] MEDS: PROCHLORPERAZINE 10 MG/2 ML VIAL. IV (20:30)
[2018-02-28 20:43] LABS: ADD MAN DIFF? NO
[2018-02-28 20:47] LABS: BILIRUBIN,URINE NEGATIVE (NEG); CLARITY,URINE CLEAR; COLOR,URINE YELLOW; GLUCOSE,URINE NEGATIVE (NEG); NITRITE,URINE NEGATIVE (NEG); PROTEIN,URINE NEGATIVE (NEG-TRACE); UROBILINOGEN,URINE >=8.0 mg/dL (0.2 mg/dL)
[2018-02-28 20:48] LABS: BASO # 0.1 x10^3/uL (0.0-0.2); BASO % 1 % (0-3); EOS # 0.5 x10^3/uL (0.0-0.7); EOS % 5 % (0-3); HEMATOCRIT 23.4 % (36.0-47.0); HEMOGLOBIN 8.5 g/dL (12.0-15.5); LYMPH # 4.1 x10^3/uL (1.0-4.8); LYMPH % 36 % (24-48); MEAN CORPUSCULAR HEMOGLOBIN 38 pg (25-35); MEAN CORPUSCULAR HGB CONC 37 g/dL (31-37); MEAN CORPUSCULAR VOLUME 104 fL (79-100); MONO # 1.3 x10^3/uL (0.0-1.1); MONO % 12 % (0-9); NEUT # 5.3 x10^3uL (1.8-7.7); NEUT % 47 % (31-73); PLATELET COUNT 393 x10^3/uL (140-400); RED BLOOD COUNT 2.24 x10^6/uL (3.50-5.40); RED CELL DISTRIBUTION WIDTH 17.8 % (11.5-14.5); WHITE BLOOD COUNT 11.4 x10^3/uL (4.0-11.0)
[2018-02-28 20:49] LABS: RETIC COUNT 4.9 % (0.5-2.5)
[2018-02-28 20:53] LABS: ANION GAP 8 (6-14); BACTERIA,URINE FEW /HPF (0-FEW); BLOOD UREA NITROGEN 5 mg/dL (7-20); CALCIUM 8.6 mg/dL (8.5-10.1); CARBON DIOXIDE 26 mmol/L (21-32); CHLORIDE 107 mmol/L (98-107); CREATININE 0.7 mg/dL (0.6-1.0); GFR 124.4; GLUCOSE 96 mg/dL (70-99); RBC,URINE OCC /HPF (0-2); SODIUM 141 mmol/L (136-145); SQUAMOUS EPITHELIAL CELL,UR MOD /LPF; WBC,URINE OCC /HPF (0-4)
[2018-02-28 20:58] LABS: LACTATE DEHYDROGENASE 443 U/L (81-234)
== END 2018-02-28 23:00 | disposition home or self-care (01) ==
LOC: ER 18:58
DX: D57.00 Hb-SS disease with crisis, unspecified (principal); Z88.6 Allergy status to analgesic agent
CPT/HCPCS: 36415; 80048; 81001; 83615; 85025; 85045; 96374; 96375; 96376; 99284; J0780; J1200; J1885; J3010; J7030

== ENCOUNTER 2018-04-13 11:04 | Emergency (ER) | payer OTHER ==
[2018-04-13 13:44] LABS: BILIRUBIN,URINE NEGATIVE (NEG); CLARITY,URINE CLEAR; COLOR,URINE YELLOW; GLUCOSE,URINE NEGATIVE (NEG); NITRITE,URINE NEGATIVE (NEG); PH,URINE 7.5; PROTEIN,URINE NEGATIVE (NEG-TRACE)
[2018-04-13 13:51] LABS: BARBITURATES NEG (NEG); BENZODIAZEPINES NEG (NEG); CANNABINOIDS NEG (NEG); COCAINE NEG (NEG); METHADONE NEG (NEG); OPIATES POS (NEG); PHENCYCLIDINE NEG (NEG)
[2018-04-13 13:53] LABS: AMPHETAMINE/METHAMPHETAMINE NEG (NEG); ETHANOL, URINE NEG (NEG)
[2018-04-13 14:03] LABS: ADD MAN DIFF? NO
[2018-04-13] MEDS: ONDANSETRON PF 4 MG/2 ML VIAL. IV (14:03)
[2018-04-13] MEDS: fentaNYL PF VIAL 100 MCG/2 ML VIAL IV ×2 (14:03→15:20)
[2018-04-13] MEDS: IV NORMAL SALINE 1000ML BAG 1,000 ML IV (14:03)
[2018-04-13 14:07] LABS: BACTERIA,URINE MANY /HPF (0-FEW); RBC,URINE 0 /HPF (0-2); SQUAMOUS EPITHELIAL CELL,UR FEW /LPF
[2018-04-13 14:08] LABS: BASO % 0 % (0-3); EOS # 0.3 x10^3/uL (0.0-0.7); EOS % 4 % (0-3); HEMATOCRIT 21.4 % (36.0-47.0); HEMOGLOBIN 7.7 g/dL (12.0-15.5); LYMPH # 2.7 x10^3/uL (1.0-4.8); LYMPH % 28 % (24-48); MEAN CORPUSCULAR HEMOGLOBIN 38 pg (25-35); MEAN CORPUSCULAR HGB CONC 36 g/dL (31-37); MEAN CORPUSCULAR VOLUME 104 fL (79-100); MONO # 0.8 x10^3/uL (0.0-1.1); MONO % 9 % (0-9); NEUT # 5.8 x10^3uL (1.8-7.7); NEUT % 59 % (31-73); PLATELET COUNT 273 x10^3/uL (140-400); RED BLOOD COUNT 2.05 x10^6/uL (3.50-5.40); RED CELL DISTRIBUTION WIDTH 19.2 % (11.5-14.5); RETIC COUNT 4.7 % (0.5-2.5); WHITE BLOOD COUNT 9.7 x10^3/uL (4.0-11.0)
[2018-04-13 14:16] LABS: INR 1.3 (0.8-1.1); PROTHROMBIN TIME PATIENT 15.7 SEC (11.7-14.0)
[2018-04-13 14:22] LABS: ANION GAP 6 (6-14); BLOOD UREA NITROGEN 8 mg/dL (7-20); BUN/CREATININE RATIO 16 (6-20); CALCIUM 8.5 mg/dL (8.5-10.1); CARBON DIOXIDE 23 mmol/L (21-32); CHLORIDE 106 mmol/L (98-107); CREATININE 0.5 mg/dL (0.6-1.0); GFR 183.4; GLUCOSE 93 mg/dL (70-99); NEG OBC SER NEG; POS OBC SER POS; POTASSIUM 4.2 mmol/L (3.5-5.1); PREG TEST PT QUAL NEGATIVE (NEG); SODIUM 135 mmol/L (136-145)
[2018-04-13 14:28] LABS: ALBUMIN 3.9 g/dL (3.4-5.0); ALBUMIN/GLOBULIN RATIO 0.9 (1.0-1.7); ALK PHOS 88 U/L (46-116); ALT (SGPT) 18 U/L (14-59); AST (SGOT) 32 U/L (15-37); LACTATE DEHYDROGENASE 501 U/L (81-234); TOTAL BILIRUBIN 1.7 mg/dL (0.2-1.0); TOTAL PROTEIN 8.3 g/dL (6.4-8.2)
[2018-04-13] MEDS: AZITHROMYCIN 250 MG TABLET. PO (16:09)
[2018-04-13] MEDS: cefTRIAXone IM 250 MG VIAL IM (16:09)
[2018-04-13] MEDS ORDERED: HEPARIN PF 500 UNIT/5 ML DISP.SYRIN. IV (16:40)
[2018-04-13] MEDS: HEPARIN PF 500 UNIT/5 ML DISP.SYRIN. IV (16:45)
== END 2018-04-13 16:51 | disposition home or self-care (01) ==
LOC: ER 11:04
DX: D57.1 Sickle-cell disease without crisis (principal); N89.8 Other specified noninflammatory disorders of vagina; M54.89 Other dorsalgia; M79.669 Pain in unspecified lower leg; F17.200 Nicotine dependence, unspecified, uncomplicated; Z88.5 Allergy status to narcotic agent
CPT/HCPCS: 36415; 80053; 80307; 81001; 83615; 84703; 85025; 85045; 85610; 87491; 87591; 96361; 96372; 96374; 96375; 96376; 99284-25; J0696; J2405; J3010; J7030; Q0144

== ENCOUNTER 2018-04-27 17:49 | Emergency (ER) | payer OTHER ==
[2018-04-27 19:36] LABS: ADD MAN DIFF? NO
[2018-04-27] MEDS: fentaNYL PF VIAL 100 MCG/2 ML VIAL IV (19:44)
[2018-04-27] MEDS: IV NORMAL SALINE 1000ML BAG 1,000 ML IV (19:45)
[2018-04-27 19:51] LABS: BASO # 0.1 x10^3/uL (0.0-0.2); BASO % 1 % (0-3); EOS # 0.4 x10^3/uL (0.0-0.7); EOS % 3 % (0-3); LYMPH # 3.7 x10^3/uL (1.0-4.8); LYMPH % 28 % (24-48); MEAN CORPUSCULAR HEMOGLOBIN 40 pg (25-35); MEAN CORPUSCULAR HGB CONC 37 g/dL (31-37); MEAN CORPUSCULAR VOLUME 109 fL (79-100); MONO # 0.9 x10^3/uL (0.0-1.1); MONO % 7 % (0-9); NEUT % 61 % (31-73); PLATELET COUNT 329 x10^3/uL (140-400); RED BLOOD COUNT 1.86 x10^6/uL (3.50-5.40); RED CELL DISTRIBUTION WIDTH 19.7 % (11.5-14.5); WHITE BLOOD COUNT 13.1 x10^3/uL (4.0-11.0)
[2018-04-27 19:52] LABS: ANION GAP 9 (6-14); BLOOD UREA NITROGEN 9 mg/dL (7-20); BUN/CREATININE RATIO 13 (6-20); CALCIUM 8.1 mg/dL (8.5-10.1); CARBON DIOXIDE 25 mmol/L (21-32); CHLORIDE 105 mmol/L (98-107); CREATININE 0.7 mg/dL (0.6-1.0); GFR 124.4; GLUCOSE 89 mg/dL (70-99); POTASSIUM 4.5 mmol/L (3.5-5.1); SODIUM 139 mmol/L (136-145)
[2018-04-27 19:55] LABS: HEMATOCRIT 20.2 % (36.0-47.0); HEMOGLOBIN 7.4 g/dL (12.0-15.5)
[2018-04-27 19:56] LABS: ALBUMIN 3.8 g/dL (3.4-5.0); ALBUMIN/GLOBULIN RATIO 0.9 (1.0-1.7); ALK PHOS 91 U/L (46-116); ALT (SGPT) 26 U/L (14-59); AST (SGOT) 43 U/L (15-37); RETIC COUNT 3.9 % (0.5-2.5); TOTAL BILIRUBIN 1.1 mg/dL (0.2-1.0); TOTAL PROTEIN 8.1 g/dL (6.4-8.2)
[2018-04-27 19:59] LABS: BILIRUBIN,URINE NEGATIVE (NEG); CLARITY,URINE CLEAR; COLOR,URINE YELLOW; GLUCOSE,URINE NEGATIVE (NEG); NITRITE,URINE NEGATIVE (NEG); PROTEIN,URINE NEGATIVE (NEG-TRACE)
[2018-04-27 20:08] LABS: RBC,URINE OCC /HPF (0-2)
[2018-04-27 20:09] LABS: BACTERIA,URINE MANY /HPF (0-FEW); SQUAMOUS EPITHELIAL CELL,UR OCC /LPF
[2018-04-27 20:41] LABS: PLT ESTIMATE ADEQUATE (ADEQUATE); SICKLE CELLS OCC
[2018-04-27 20:42] LABS: POIKILOCYTOSIS SLIGHT
[2018-04-27 20:43] LABS: TOXIC VACUOLATION SLIGHT
[2018-04-27] MEDS: MORPHINE SULFATE 4 MG/ML DISP.SYRIN. IV ×2 (21:16→22:57)
[2018-04-27] MEDS: KETAMINE HCL 500 MG/10 ML VIAL. IV ×2 (21:57→22:58)
== END 2018-04-27 23:38 | disposition home or self-care (01) ==
LOC: ER 17:49
DX: D57.1 Sickle-cell disease without crisis (principal); M25.561 Pain in right knee; M25.562 Pain in left knee; M54.9 Dorsalgia, unspecified; Z88.5 Allergy status to narcotic agent
CPT/HCPCS: 36415; 80053; 81001; 84702; 85025; 85045; 87086; 96374; 96375; 96376; 99284-25; J2270; J3010; J3490; J7030

== ENCOUNTER 2018-04-30 14:50 | Emergency (ER) | payer OTHER ==
[2018-04-30 15:17] LABS: URINE HCG POC HCG NEGATIVE (Negative)
[2018-04-30 15:37] LABS: BILIRUBIN,URINE NEGATIVE (NEG); CLARITY,URINE CLEAR; COLOR,URINE YELLOW; GLUCOSE,URINE NEGATIVE (NEG); NITRITE,URINE NEGATIVE (NEG); PH,URINE 6.5; PROTEIN,URINE NEGATIVE (NEG-TRACE)
[2018-04-30] MEDS: IV NORMAL SALINE 1000ML BAG 1,000 ML IV (15:44)
[2018-04-30 15:50] LABS: ADD MAN DIFF? NO
[2018-04-30] MEDS: MORPHINE SULFATE 10 MG/ML VIAL. IV ×2 (15:52→18:00)
[2018-04-30] MEDS: KETAMINE HCL 500 MG/10 ML VIAL. IV (15:52)
[2018-04-30 15:53] LABS: BACTERIA,URINE MANY /HPF (0-FEW); SQUAMOUS EPITHELIAL CELL,UR FEW /LPF; WBC,URINE 20-40 /HPF (0-4)
[2018-04-30 16:02] LABS: ANION GAP 7 (6-14); BASO # 0.1 x10^3/uL (0.0-0.2); BASO % 1 % (0-3); BLOOD UREA NITROGEN 8 mg/dL (7-20); BUN/CREATININE RATIO 11 (6-20); CALCIUM 8.3 mg/dL (8.5-10.1); CARBON DIOXIDE 27 mmol/L (21-32); CHLORIDE 103 mmol/L (98-107); CREATININE 0.7 mg/dL (0.6-1.0); EOS # 0.4 x10^3/uL (0.0-0.7); EOS % 6 % (0-3); GFR 124.4; GLUCOSE 100 mg/dL (70-99); LYMPH # 2.4 x10^3/uL (1.0-4.8); LYMPH % 35 % (24-48); MEAN CORPUSCULAR HEMOGLOBIN 40 pg (25-35); MEAN CORPUSCULAR HGB CONC 36 g/dL (31-37); MEAN CORPUSCULAR VOLUME 109 fL (79-100); MONO # 1.1 x10^3/uL (0.0-1.1); MONO % 16 % (0-9); NEUT # 2.9 x10^3uL (1.8-7.7); NEUT % 42 % (31-73); PLATELET COUNT 305 x10^3/uL (140-400); POTASSIUM 4.3 mmol/L (3.5-5.1); RED BLOOD COUNT 1.87 x10^6/uL (3.50-5.40); RED CELL DISTRIBUTION WIDTH 20.3 % (11.5-14.5); SODIUM 137 mmol/L (136-145); WHITE BLOOD COUNT 6.9 x10^3/uL (4.0-11.0)
[2018-04-30 16:05] LABS: ALBUMIN 3.8 g/dL (3.4-5.0); ALBUMIN/GLOBULIN RATIO 0.9 (1.0-1.7); ALK PHOS 93 U/L (46-116); ALT (SGPT) 49 U/L (14-59); AST (SGOT) 53 U/L (15-37); HEMATOCRIT 20.3 % (36.0-47.0); MAGNESIUM 1.8 mg/dL (1.8-2.4); TOTAL PROTEIN 8.1 g/dL (6.4-8.2)
[2018-04-30 16:06] LABS: HEMOGLOBIN 7.4 g/dL (12.0-15.5)
[2018-04-30 16:07] LABS: RETIC COUNT 5.1 % (0.5-2.5)
[2018-04-30] MEDS: ORPHENADRINE CITRATE 60 MG/2 ML VIAL. IM (16:30)
[2018-04-30] MEDS: NITROFURANTOIN MONOHYD/M-CRYST 100 MG CAPSULE. PO (16:58)
[2018-04-30] MEDS: DEXAMETHASONE SOD PHOS 4 MG/ML VIAL IV (16:59)
[2018-04-30 17:01] LABS: ANISOCYTOSIS MOD; OVALOCYTES FEW; PLT ESTIMATE ADEQUATE (ADEQUATE); POIKILOCYTOSIS MOD; SICKLE CELLS FEW; TARGET CELLS OCC
[2018-04-30] MEDS: ORPHENADRINE CITRATE 60 MG/2 ML VIAL. IV (17:59)
== END 2018-04-30 17:54 | disposition home or self-care (01) ==
LOC: ER 14:50
DX: D57.00 Hb-SS disease with crisis, unspecified (principal); N30.90 Cystitis, unspecified without hematuria; Z88.6 Allergy status to analgesic agent
CPT/HCPCS: 36415; 80053; 81001; 81025; 83735; 85025; 85045; 87086; 96374; 96375; 96376; 99284-25; J1100; J2270; J2360; J3490; J7030

== ENCOUNTER 2018-05-17 16:45 | Emergency (ER) | payer OTHER ==
[2018-05-17] MEDS: diphenhydrAMINE 50 MG/ML VIAL IVP (18:20)
[2018-05-17] MEDS: PROCHLORPERAZINE 10 MG/2 ML VIAL. IV (18:21)
[2018-05-17] MEDS: fentaNYL PF VIAL 100 MCG/2 ML VIAL IV (18:23)
[2018-05-17] MEDS: IV NORMAL SALINE 1000ML BAG 1,000 ML IV ×2 (18:24→19:51)
[2018-05-17 19:36] LABS: ADD MAN DIFF? NO
[2018-05-17 19:39] LABS: BASO # 0.1 x10^3/uL (0.0-0.2); BASO % 0 % (0-3); EOS # 0.4 x10^3/uL (0.0-0.7); EOS % 3 % (0-3); HEMATOCRIT 22.4 % (36.0-47.0); LYMPH # 3.9 x10^3/uL (1.0-4.8); LYMPH % 33 % (24-48); MEAN CORPUSCULAR HEMOGLOBIN 40 pg (25-35); MEAN CORPUSCULAR HGB CONC 36 g/dL (31-37); MEAN CORPUSCULAR VOLUME 112 fL (79-100); MONO # 1.1 x10^3/uL (0.0-1.1); MONO % 10 % (0-9); NEUT # 6.4 x10^3uL (1.8-7.7); NEUT % 54 % (31-73); PLATELET COUNT 291 x10^3/uL (140-400); RED BLOOD COUNT 1.99 x10^6/uL (3.50-5.40); WHITE BLOOD COUNT 11.9 x10^3/uL (4.0-11.0)
[2018-05-17 19:40] LABS: RETIC COUNT 5.5 % (0.5-2.5)
[2018-05-17 19:47] LABS: INR 1.3 (0.8-1.1); PROTHROMBIN TIME PATIENT 15.3 SEC (11.7-14.0)
[2018-05-17] MEDS: MORPHINE SULFATE 10 MG/ML VIAL. IV ×2 (19:52→22:10)
[2018-05-17] MEDS: KETAMINE HCL 500 MG/10 ML VIAL. IV (19:52)
[2018-05-17 19:56] LABS: NEG OBC SER NEG; POS OBC SER POS; PREG TEST PT QUAL NEGATIVE (NEG)
[2018-05-17 19:57] LABS: ANION GAP 9 (6-14); BLOOD UREA NITROGEN 6 mg/dL (7-20); BUN/CREATININE RATIO 10 (6-20); CALCIUM 8.6 mg/dL (8.5-10.1); CARBON DIOXIDE 25 mmol/L (21-32); CHLORIDE 104 mmol/L (98-107); CREATININE 0.6 mg/dL (0.6-1.0); GFR 148.6; GLUCOSE 104 mg/dL (70-99); POTASSIUM 3.8 mmol/L (3.5-5.1); SODIUM 138 mmol/L (136-145)
[2018-05-17 20:02] LABS: ALBUMIN 3.9 g/dL (3.4-5.0); ALK PHOS 81 U/L (46-116); ALT (SGPT) 38 U/L (14-59); AST (SGOT) 31 U/L (15-37); TOTAL BILIRUBIN 1.3 mg/dL (0.2-1.0); TOTAL PROTEIN 7.9 g/dL (6.4-8.2)
[2018-05-17 20:25] LABS: PLT ESTIMATE ADEQUATE (ADEQUATE)
[2018-05-17 20:30] LABS: ANISOCYTOSIS SLIGHT; HYPOCHROMIA SLIGHT; POIKILOCYTOSIS MOD; POLYCHROMASIA SLIGHT; SICKLE CELLS FEW; TARGET CELLS FEW
[2018-05-17] MEDS: HEPARIN PF 500 UNIT/5 ML DISP.SYRIN. IV (22:22)
== END 2018-05-17 22:31 | disposition home or self-care (01) ==
LOC: ER 16:45
DX: D57.00 Hb-SS disease with crisis, unspecified (principal); Z88.6 Allergy status to analgesic agent
CPT/HCPCS: 36415; 80053; 83735; 84703; 85025; 85045; 85610; 96374; 96375; 96376; 99284-25; J0780; J1200; J2270; J3010; J3490; J7030

== ENCOUNTER 2018-06-07 16:50 | Emergency (ER) | payer OTHER ==
[~2018-06-07] VITALS: Ht 170.2 cm; Wt 63.5 kg
[~2018-06-07 16:50] MED LIST changes: +CEPH-264 PO; +CEPH500C PO; -HYDR2TAB13 PO; +HYDR2TAB31 PO; -HYDR4TAB13 PO; +HYDR4TAB45 PO; +HYDR500C16 PO; -HYDR500C3 PO; +MORP30TA PO; +NITR100C62 PO; +ORPH100T PO; +OXYC60TA7 PO; +ZOLP10TA PO
[2018-06-07] MEDS ORDERED: diphenhydrAMINE 50 MG/ML VIAL IVP ONE (19:30)
[2018-06-07] MEDS ORDERED: IV NORMAL SALINE 1000ML BAG 1,000 ML IV ONE (19:30)
[2018-06-07] MEDS ORDERED: fentaNYL PF VIAL 100 MCG/2 ML VIAL IV ONE ×3 (19:30→20:45)
[2018-06-07] MEDS ORDERED: ONDANSETRON PF 4 MG/2 ML VIAL. IV ONE (19:30)
[2018-06-07 20:30] VITALS: BP 120/72
--- NOTE | 2018-06-07 20:51 | PHYS DOC ---
Past Medical History Past Medical History: Sickle Cell Disease, Other Additional Past Medical Histor: sickle cell anemia Past Surgical History: , Other Additional Past Surgical Histo: I&D abscess , RIGHT ARM, portacath placement Alcohol Use: None Drug Use: None Adult General Chief Complaint Chief Complaint: OTHER COMPLAINTS HPI HPI Patient is a 22 year old female who presents with sickle cell related pain. The patient has been having pain in the low back and hips over the last several days. Her pain symptoms are exactly similar to prior sickle cell related pain. The patient has pain medications at home but states he has not been helping. She denies fever or chills. No chest pain. No shortness of breath. The patient is well-known to this emergency department. She has no red flags on her history of present illness. Review of Systems Review of Systems Constitutional: Denies fever or chills Eyes: Denies change in visual acuity HENT: Denies nasal congestion or sore throat Respiratory: Denies cough or shortness of breath Cardiovascular: No additional information not addressed in HPI GI: Denies abdominal pain : Denies dysuria or hematuria Integument: Denies rash Neurologic: Denies headache Endocrine: Denies polyuria All other systems were reviewed and found to be within normal limits, except as documented in this note. Current Medications Current Medications Current Medications Medications (Trade) Dose Ordered Sig/Vanessa Start Time Stop Time Status Last Admin Dose Admin Diphenhydramine HCl (Benadryl) 25 mg 1X ONCE 06/07/18 19:30 06/07/18 19:31 DC 06/07/18 19:48 25 MG Fentanyl Citrate (Fentanyl 2ml Vial) 100 mcg 1X ONCE 06/07/18 20:45 06/07/18 20:46 DC 06/07/18 20:52 100 MCG Heparin Sodium (Porcine) (Hep Lock Adult) 500 unit STK-MED ONCE 06/07/18 21:33 06/08/18 00:41 DC Ondansetron HCl (Zofran) 4 mg 1X ONCE 06/07/18 19:30 06/07/18 19:31 DC 06/07/18 19:48 4 MG Sodium Chloride 1,000 ml @ 1,000 mls/hr 1X ONCE 06/07/18 19:30 06/07/18 20:29 DC 06/07/18 19:49 1,000 MLS/HR Allergies Allergies Allergies Coded Allergies Type Severity Reaction Last Updated Verified acetaminophen Allergy Intermediate ITCHING 09/02/16 Yes Physical Exam Physical Exam Constitutional: Well developed, well nourished, no acute distress, non-toxic appearance HENT: Normocephalic, atraumatic, bilateral external ears normal, oropharynx moist Eyes: PERRLA, EOMI Neck: Normal range of motion Cardiovascular:Heart rate regular rate and rhythm Lungs & Thorax: Bilateral breath sounds clear to auscultation Abdomen: Bowel sounds normal, soft Skin: Warm, dry, no erythema Back: No tenderness, no CVA tenderness Extremities: No edema Neurologic: Alert and oriented X 3 Psychologic: Affect normal Current Patient Data Vital Signs Vital Signs Date Time Temp Pulse Resp B/P (MAP) Pulse Ox O2 Delivery O2 Flow Rate FiO2 06/07/18 20:52 15 100 Nasal Cannula 2.0 06/07/18 20:30 63 120/72 (88) 06/07/18 19:13 98.1 98.1 EKG EKG [] Radiology/Procedures Radiology/Procedures [] Course & Med Decision Making Course & Med Decision Making Pertinent Labs and Imaging studies reviewed. (See chart for details) Patient is seen and examined. She is offered the option of 3 doses of pain medication to be given in the emergency department. Patient was evaluated in the emergency department for sickle cell pain. She was given 3 doses of fentanyl. Following that, she was discharged to home. Encouraged to follow-up with her primary care physician or return to the ER for any new or worsening symptoms. Dragon Disclaimer Dragon Disclaimer This electronic medical record was generated, in whole or in part, using a voice recognition dictation system. Departure Departure Referrals: ANIA MCELROY MD (PCP) SARAH BILLINGSLEY DO Jun 07, 2018 20:51
[2018-06-07] MEDS ORDERED: HEPARIN PF 500 UNIT/5 ML DISP.SYRIN. IV ONE (21:33)
== END 2018-06-07 22:15 | disposition home or self-care (01) ==
LOC: ER 16:50
DX: D57.1 Sickle-cell disease without crisis (principal); M54.5 Low back pain; Z88.6 Allergy status to analgesic agent
CPT/HCPCS: 96374; 96375; 96376; 99284; J1200; J2405; J3010; J7030

== ENCOUNTER 2018-06-22 17:22 | Emergency (ER) | payer OTHER ==
[~2018-06-22] VITALS: Ht 170.2 cm; Wt 61.2 kg
--- NOTE | 2018-06-22 18:40 | PHYS DOC ---
Past Medical History Past Medical History: Sickle Cell Disease, Other Additional Past Medical Histor: sickle cell anemia Past Surgical History: , Other Additional Past Surgical Histo: I&D abscess , RIGHT ARM, portacath placement Alcohol Use: None Drug Use: None Adult General Chief Complaint Chief Complaint: PAIN CONTROL HPI HPI 22-year-old female presents to ER via EMS for complaints of increased pain over the past couple of days which she reports is similar to previous sickle cell crisis episodes. Review of Systems Review of Systems Constitutional: Denies fever or chills [] Eyes: Denies change in visual acuity, redness, or eye pain [] HENT: Denies nasal congestion or sore throat [] Respiratory: Denies cough or shortness of breath [] Cardiovascular: No additional information not addressed in HPI [] GI: Denies abdominal pain, nausea, vomiting, bloody stools or diarrhea [] : Denies dysuria or hematuria [] Musculoskeletal: Denies back pain or joint pain [] Integument: Denies rash or skin lesions [] Neurologic: Denies headache, focal weakness or sensory changes [] Endocrine: Denies polyuria or polydipsia [] All other systems were reviewed and found to be within normal limits, except as documented in this note. Current Medications Current Medications Current Medications Medications (Trade) Dose Ordered Sig/Vanessa Start Time Stop Time Status Last Admin Dose Admin Fentanyl Citrate (Fentanyl 2ml Vial) 50 mcg 1X ONCE 06/22/18 20:00 06/22/18 20:01 DC 06/22/18 20:03 50 MCG Heparin Sodium (Porcine) (Hep Lock Adult) 500 unit 1X ONCE 06/22/18 21:15 06/22/18 21:16 DC Sodium Chloride 1,000 ml @ 1,000 mls/hr 1X ONCE 06/22/18 19:00 06/22/18 20:14 DC Allergies Allergies Allergies Coded Allergies Type Severity Reaction Last Updated Verified acetaminophen Allergy Intermediate ITCHING 09/02/16 Yes Physical Exam Physical Exam Constitutional: Well developed, well nourished, no acute distress, non-toxic appearance. [] HENT: Normocephalic, atraumatic, bilateral external ears normal, oropharynx moist, no oral exudates, nose normal. [] Eyes: PERRLA, EOMI, conjunctiva normal, no discharge. [] Neck: Normal range of motion, no tenderness, supple, no stridor. [] Cardiovascular:Heart rate regular rhythm, no murmur [] Lungs & Thorax: Bilateral breath sounds clear to auscultation [] Abdomen: Bowel sounds normal, soft, no tenderness, no masses, no pulsatile masses. [] Skin: Warm, dry, no erythema, no rash. [] Back: No tenderness, no CVA tenderness. [] Extremities: No tenderness, no cyanosis, no clubbing, ROM intact, no edema. [] Neurologic: Alert and oriented X 3, normal motor function, normal sensory function, no focal deficits noted. [] Psychologic: Affect normal, judgement normal, mood normal. [] Current Patient Data Vital Signs Vital Signs Date Time Temp Pulse Resp B/P (MAP) Pulse Ox O2 Delivery O2 Flow Rate FiO2 06/22/18 20:03 16 98 Nasal Cannula 2.0 06/22/18 17:22 98.4 78 109/58 (75) 98.4 Lab Values Laboratory Tests Test 06/22/18 18:41 06/22/18 19:00 06/22/18 19:08 White Blood Count 11.8 x10^3/uL (4.0-11.0) H Red Blood Count 2.11 x10^6/uL (3.50-5.40) L Hemoglobin 8.3 g/dL (12.0-15.5) L Hematocrit 23.4 % (36.0-47.0) L Mean Corpuscular Volume 111 fL (79-100) H Mean Corpuscular Hemoglobin 39 pg (25-35) H Mean Corpuscular Hemoglobin Concent 35 g/dL (31-37) Red Cell Distribution Width 17.7 % (11.5-14.5) H Platelet Count 320 x10^3/uL (140-400) Neutrophils (%) (Auto) 57 % (31-73) Lymphocytes (%) (Auto) 30 % (24-48) Monocytes (%) (Auto) 10 % (0-9) H Eosinophils (%) (Auto) 3 % (0-3) Basophils (%) (Auto) 1 % (0-3) Neutrophils # (Auto) 6.7 x10^3uL (1.8-7.7) Lymphocytes # (Auto) 3.5 x10^3/uL (1.0-4.8) Monocytes # (Auto) 1.2 x10^3/uL (0.0-1.1) H Eosinophils # (Auto) 0.3 x10^3/uL (0.0-0.7) Basophils # (Auto) 0.1 x10^3/uL (0.0-0.2) Platelet Estimate Adequate (ADEQUATE) Polychromasia Slight Anisocytosis Mod Macrocytosis Mod Sickle Cells Occ Target Cells Many Schistocytes Few Reticulocyte Count (auto) 2.7 % (0.5-2.5) H Sodium Level 139 mmol/L (136-145) Potassium Level 3.9 mmol/L (3.5-5.1) Chloride Level 106 mmol/L (98-107) Carbon Dioxide Level 26 mmol/L (21-32) Anion Gap 7 (6-14) Blood Urea Nitrogen 8 mg/dL (7-20) Creatinine 0.7 mg/dL (0.6-1.0) Estimated GFR (Cockcroft-Gault) 124.4 BUN/Creatinine Ratio 11 (6-20) Glucose Level 98 mg/dL (70-99) Calcium Level 8.6 mg/dL (8.5-10.1) Total Bilirubin 1.4 mg/dL (0.2-1.0) H Aspartate Amino Transferase (AST) 37 U/L (15-37) Alanine Aminotransferase (ALT) 27 U/L (14-59) Alkaline Phosphatase 78 U/L (46-116) Total Protein 7.9 g/dL (6.4-8.2) Albumin 3.9 g/dL (3.4-5.0) Albumin/Globulin Ratio 1.0 (1.0-1.7) Urine Collection Type Unknown Urine Color Jenni Urine Clarity Clear Urine pH 5.5 Urine Specific Schuyler 1.015 Urine Protein Negative mg/dL (NEG-TRACE) Urine Glucose (UA) Negative mg/dL (NEG) Urine Ketones (Stick) Negative mg/dL (NEG) Urine Blood Moderate (NEG) Urine Nitrite Negative (NEG) Urine Bilirubin Negative (NEG) Urine Urobilinogen Dipstick 1.0 mg/dL (0.2 mg/dL) Urine Leukocyte Esterase Negative (NEG) Urine RBC 0 /HPF (0-2) Urine WBC Occ /HPF (0-4) Urine Squamous Epithelial Cells Mod /LPF Urine Bacteria 0 /HPF (0-FEW) Urine Hyaline Casts Few /HPF Urine Mucus Mod /LPF POC Urine HCG, Qualitative Hcg negative (Negative) Laboratory Tests 06/22/18 18:41 Laboratory Tests 06/22/18 18:41 EKG EKG [] Radiology/Procedures Radiology/Procedures [] Course & Med Decision Making Course & Med Decision Making Pertinent Labs and Imaging studies reviewed. (See chart for details) 2049: In-depth discussion had with patient regarding lab and chest xray results and comparison results being similar 2055: Spoke with Dr. Marvin, hospitalist and discussed pt's case and test results. Dragon Disclaimer Dragon Disclaimer This electronic medical record was generated, in whole or in part, using a voice recognition dictation system. Departure Departure Impression: Primary Impression: Chronic pain Additional Impression: Sickle cell anemia Disposition: HOME, SELF-CARE Condition: STABLE Referrals: ANIA MCELROY MD (PCP) SARAH PERKINS MD pain management Patient Instructions: Chronic Pain, Sickle Cell Anemia Additional Instructions: As discussed you should continue taking your prescribed medications for pain DIRECTED. You need follow-up with your primary doctor in 1 day and with chronic pain you are being provided with pain management information- call and schedule an appointment as soon as possible. No driving as you received narcotics while in the Emergency Department. Problem Qualifiers NITHYA RAMIREZ APRN Jun 22, 2018 18:40
[2018-06-22] MEDS ORDERED: fentaNYL PF VIAL 100 MCG/2 ML VIAL IV ONE ×2 (18:45→20:00)
[2018-06-22] MEDS ORDERED: IV NORMAL SALINE 1000ML BAG 1,000 ML IV ONE ×2 (18:45→19:00)
[2018-06-22 19:11] LABS: BASO # 0.1 x10^3/uL (0.0-0.2); BASO % 1 % (0-3); EOS # 0.3 x10^3/uL (0.0-0.7); EOS % 3 % (0-3); HEMATOCRIT 23.4 % (36.0-47.0); HEMOGLOBIN 8.3 g/dL (12.0-15.5); LYMPH # 3.5 x10^3/uL (1.0-4.8); LYMPH % 30 % (24-48); MEAN CORPUSCULAR HEMOGLOBIN 39 pg (25-35); MEAN CORPUSCULAR HGB CONC 35 g/dL (31-37); MEAN CORPUSCULAR VOLUME 111 fL (79-100); MONO # 1.2 x10^3/uL (0.0-1.1); MONO % 10 % (0-9); NEUT # 6.7 x10^3uL (1.8-7.7); NEUT % 57 % (31-73); PLATELET COUNT 320 x10^3/uL (140-400); RED BLOOD COUNT 2.11 x10^6/uL (3.50-5.40); RED CELL DISTRIBUTION WIDTH 17.7 % (11.5-14.5); WHITE BLOOD COUNT 11.8 x10^3/uL (4.0-11.0)
[2018-06-22 19:12] LABS: CALCIUM 8.6 mg/dL (8.5-10.1); CREATININE 0.7 mg/dL (0.6-1.0); GFR 124.4; POTASSIUM 3.9 mmol/L (3.5-5.1)
[2018-06-22 19:14] LABS: RETIC COUNT 2.7 % (0.5-2.5)
[2018-06-22 19:18] LABS: ALBUMIN 3.9 g/dL (3.4-5.0); TOTAL BILIRUBIN 1.4 mg/dL (0.2-1.0); TOTAL PROTEIN 7.9 g/dL (6.4-8.2)
[2018-06-22 19:19] LABS: BILIRUBIN,URINE NEGATIVE (NEG); CLARITY,URINE CLEAR; COLOR,URINE AMBER; NITRITE,URINE NEGATIVE (NEG); PH,URINE 5.5; PROTEIN,URINE NEGATIVE (NEG-TRACE)
[2018-06-22 19:23] LABS: BACTERIA,URINE 0 /HPF (0-FEW); HYALINE CASTS, URINE FEW /HPF; RBC,URINE 0 /HPF (0-2); SQUAMOUS EPITHELIAL CELL,UR MOD /LPF; WBC,URINE OCC /HPF (0-4)
[2018-06-22 19:52] LABS: ANISOCYTOSIS MOD; PLT ESTIMATE ADEQUATE (ADEQUATE); POLYCHROMASIA SLIGHT; SCHISTOCYTES FEW; SICKLE CELLS OCC; TARGET CELLS MANY
[2018-06-22 21:00] VITALS: BP 102/57
[2018-06-22] MEDS ORDERED: HEPARIN PF 500 UNIT/5 ML DISP.SYRIN. IV ONE (21:15)
--- NOTE | 2018-06-23 08:11 | RAD ---
Chest radiograph 06/22/2018 6:40 PM INDICATION: Diffuse pain associated with sickle cell. COMPARISON: November 30, 2017 TECHNIQUE: Portable upright frontal view of the chest is provided. FINDINGS: The cardiomediastinal silhouette is within normal limits. Right chest wall infusion port catheter is identified with the distal tip projecting over the cavoatrial junction. There are no pleural effusions. There is no pulmonary vascular congestion. There is no pneumothorax. The lungs are clear. No significant osseous abnormality is identified. IMPRESSION: No acute cardiopulmonary process. Electronically signed by: Sara Mcfarland MD (06/23/2018 8:08 AM) [id number]
== END 2018-06-22 21:38 | disposition home or self-care (01) ==
LOC: ER 17:22
DX: D57.1 Sickle-cell disease without crisis (principal); G89.29 Other chronic pain; Z88.6 Allergy status to analgesic agent
CPT/HCPCS: 36415; 71045; 80053; 81001; 81025; 85025; 85045; 96374; 96375; 96376; 99285; J3010; J7030

== ENCOUNTER 2018-06-25 12:10 | Emergency (ER) | payer OTHER ==
[~2018-06-25] VITALS: Ht 170.2 cm; Wt 63.5 kg
--- NOTE | 2018-06-25 13:26 | PHYS DOC ---
Past Medical History Past Medical History: Sickle Cell Disease, Other Additional Past Medical Histor: sickle cell anemia Past Surgical History: , Other Additional Past Surgical Histo: I&D abscess , RIGHT ARM, portacath placement Alcohol Use: None Drug Use: None Adult General Chief Complaint Chief Complaint: PAIN CONTROL HPI HPI Patient is a 22 year old male with history of sickle cell disease presented to ER today by EMS for evaluation of pain all over. Patient had been frequently evaluated here multiple times for the same problem. Patient was seen here 3 days ago for pain. Patient is on OxyContin, Dilaudid at home, she had taken her medicationS but continued to have pain so she came here for evaluation. Patient was observed walking in here from the EMS BASE without any problem. She denies any fever, no headache. Review of Systems Review of Systems Constitutional: Denies fever or chills [] Eyes: Denies change in visual acuity, redness, or eye pain [] HENT: Denies nasal congestion or sore throat [] Respiratory: Denies cough or shortness of breath [] Cardiovascular: No additional information not addressed in HPI [] GI: Denies abdominal pain, nausea, vomiting, bloody stools or diarrhea [] : Denies dysuria or hematuria [] Musculoskeletal: Positive for back pain , joint pain. Integument: Denies rash or skin lesions [] Neurologic: Denies headache, focal weakness or sensory changes [] Endocrine: Denies polyuria or polydipsia [] All other systems were reviewed and found to be within normal limits, except as documented in this note. Current Medications Current Medications Current Medications Medications (Trade) Dose Ordered Sig/[facility] Start Time Stop Time Status Last Admin Dose Admin Fentanyl Citrate (Fentanyl 2ml Vial) 50 mcg 1X ONCE 06/25/18 14:15 06/25/18 14:16 DC 06/25/18 14:19 50 MCG Ketorolac Tromethamine (Toradol 30mg Vial) 30 mg 1X ONCE 06/25/18 13:30 06/25/18 13:31 DC 06/25/18 13:47 30 MG Sodium Chloride 1,000 ml @ 1,000 mls/hr 1X ONCE 06/25/18 13:30 06/25/18 14:29 06/25/18 13:47 1,000 MLS/HR Allergies Allergies Allergies Coded Allergies Type Severity Reaction Last Updated Verified acetaminophen Allergy Intermediate ITCHING 09/02/16 Yes Physical Exam Physical Exam Constitutional: Well developed, well nourished, no acute distress, non-toxic appearance. [] HENT: Normocephalic, atraumatic, bilateral external ears normal, oropharynx moist, no oral exudates, nose normal. [] Eyes: PERRLA, EOMI, conjunctiva normal, no discharge. [] Neck: Normal range of motion, no tenderness, supple, no stridor. [] Cardiovascular:Heart rate regular rhythm, no murmur [] Lungs & Thorax: Bilateral breath sounds clear to auscultation [] Abdomen: Bowel sounds normal, soft, no tenderness, no masses, no pulsatile masses. [] Skin: Warm, dry, no erythema, no rash. [] Back: No tenderness, no CVA tenderness. [] Extremities: No tenderness, no cyanosis, no clubbing, ROM intact, no edema. [] Neurologic: Alert and oriented X 3, normal motor function, normal sensory function, no focal deficits noted. [] Psychologic: Affect normal, judgement normal, mood normal. [] Current Patient Data Vital Signs Vital Signs Date Time Temp Pulse Resp B/P (MAP) Pulse Ox O2 Delivery O2 Flow Rate FiO2 06/25/18 12:15 99.0 81 14 111/59 (76) 99 Room Air 99.0 Lab Values Laboratory Tests Test 06/25/18 12:00 White Blood Count 9.1 x10^3/uL (4.0-11.0) Red Blood Count 2.06 x10^6/uL (3.50-5.40) L Hemoglobin 8.2 g/dL (12.0-15.5) L Hematocrit 22.5 % (36.0-47.0) L Mean Corpuscular Volume 110 fL (79-100) H Mean Corpuscular Hemoglobin 40 pg (25-35) H Mean Corpuscular Hemoglobin Concent 36 g/dL (31-37) Red Cell Distribution Width 16.9 % (11.5-14.5) H Platelet Count 321 x10^3/uL (140-400) Neutrophils (%) (Auto) 46 % (31-73) Lymphocytes (%) (Auto) 39 % (24-48) Monocytes (%) (Auto) 11 % (0-9) H Eosinophils (%) (Auto) 4 % (0-3) H Basophils (%) (Auto) 1 % (0-3) Neutrophils # (Auto) 4.2 x10^3uL (1.8-7.7) Lymphocytes # (Auto) 3.5 x10^3/uL (1.0-4.8) Monocytes # (Auto) 1.0 x10^3/uL (0.0-1.1) Eosinophils # (Auto) 0.3 x10^3/uL (0.0-0.7) Basophils # (Auto) 0.1 x10^3/uL (0.0-0.2) Reticulocyte Count (auto) 2.4 % (0.5-2.5) Sodium Level 140 mmol/L (136-145) Potassium Level 3.8 mmol/L (3.5-5.1) Chloride Level 106 mmol/L (98-107) Carbon Dioxide Level 26 mmol/L (21-32) Anion Gap 8 (6-14) Blood Urea Nitrogen 4 mg/dL (7-20) L Creatinine 0.6 mg/dL (0.6-1.0) Estimated GFR (Cockcroft-Gault) 148.6 BUN/Creatinine Ratio 7 (6-20) Glucose Level 128 mg/dL (70-99) H Calcium Level 8.3 mg/dL (8.5-10.1) L Total Bilirubin 0.9 mg/dL (0.2-1.0) Aspartate Amino Transferase (AST) 53 U/L (15-37) H Alanine Aminotransferase (ALT) 70 U/L (14-59) H Alkaline Phosphatase 80 U/L (46-116) Total Protein 7.7 g/dL (6.4-8.2) Albumin 3.7 g/dL (3.4-5.0) Albumin/Globulin Ratio 0.9 (1.0-1.7) L Laboratory Tests 06/25/18 12:00 Laboratory Tests 06/25/18 12:00 EKG EKG [] Radiology/Procedures Radiology/Procedures [] Course & Med Decision Making Course & Med Decision Making Pertinent Labs and Imaging studies reviewed. (See chart for details) [] Dragon Disclaimer Dragon Disclaimer This electronic medical record was generated, in whole or in part, using a voice recognition dictation system. Departure Departure Impression: Primary Impression: Chronic pain Disposition: HOME, SELF-CARE Condition: STABLE Referrals: ANIA MCELROY MD (PCP) FOLLOW UP WITH YOUR DOCTOR ON THURSDAY Patient Instructions: Chronic Pain RACHEL JONES DO Jun 25, 2018 13:26
[2018-06-25] MEDS ORDERED: IV NORMAL SALINE 1000ML BAG 1,000 ML IV ONE (13:30)
[2018-06-25] MEDS ORDERED: KETOROLAC 30 MG/ML VIAL. IV ONE (13:30)
[2018-06-25 13:34] LABS: BASO # 0.1 x10^3/uL (0.0-0.2); BASO % 1 % (0-3); EOS # 0.3 x10^3/uL (0.0-0.7); EOS % 4 % (0-3); HEMATOCRIT 22.5 % (36.0-47.0); HEMOGLOBIN 8.2 g/dL (12.0-15.5); LYMPH # 3.5 x10^3/uL (1.0-4.8); LYMPH % 39 % (24-48); MEAN CORPUSCULAR HEMOGLOBIN 40 pg (25-35); MEAN CORPUSCULAR HGB CONC 36 g/dL (31-37); MEAN CORPUSCULAR VOLUME 110 fL (79-100); MONO % 11 % (0-9); NEUT # 4.2 x10^3uL (1.8-7.7); NEUT % 46 % (31-73); PLATELET COUNT 321 x10^3/uL (140-400); RED BLOOD COUNT 2.06 x10^6/uL (3.50-5.40); RED CELL DISTRIBUTION WIDTH 16.9 % (11.5-14.5); WHITE BLOOD COUNT 9.1 x10^3/uL (4.0-11.0)
[2018-06-25 13:37] LABS: RETIC COUNT 2.4 % (0.5-2.5)
[2018-06-25 13:50] LABS: CALCIUM 8.3 mg/dL (8.5-10.1); CREATININE 0.6 mg/dL (0.6-1.0); GFR 148.6; POTASSIUM 3.8 mmol/L (3.5-5.1)
[2018-06-25 13:56] LABS: ALBUMIN 3.7 g/dL (3.4-5.0); ALBUMIN/GLOBULIN RATIO 0.9 (1.0-1.7); TOTAL BILIRUBIN 0.9 mg/dL (0.2-1.0); TOTAL PROTEIN 7.7 g/dL (6.4-8.2)
[2018-06-25] MEDS ORDERED: fentaNYL PF VIAL 100 MCG/2 ML VIAL IV ONE (14:15)
[2018-06-25 14:30] VITALS: BP 104/68
[2018-06-25] MEDS ORDERED: HEPARIN PF 500 UNIT/5 ML DISP.SYRIN. IV ONE (14:30)
== END 2018-06-25 14:41 | disposition home or self-care (01) ==
LOC: ER 12:10
DX: G89.29 Other chronic pain (principal); Z88.6 Allergy status to analgesic agent; D57.819 Other sickle-cell disorders with crisis, unspecified
CPT/HCPCS: 36415; 80053; 85025; 85045; 96374; 96375; 99284; J1885; J3010; J7030

== ENCOUNTER 2018-06-27 12:16 | Emergency (ER) | payer OTHER ==
[~2018-06-27] VITALS: Ht 170.2 cm; Wt 63.5 kg
[2018-06-27] MEDS ORDERED: IV NORMAL SALINE 1000ML BAG 1,000 ML IV SCH (12:39)
[2018-06-27] MEDS ORDERED: KETOROLAC 30 MG/ML VIAL. IV ONE (12:45)
[2018-06-27] MEDS ORDERED: HYDROmorphone 4 MG TABLET PO ONE (12:45)
--- NOTE | 2018-06-27 13:02 | PHYS DOC ---
Past Medical History Past Medical History: Sickle Cell Disease, Other Additional Past Medical Histor: sickle cell anemia Past Surgical History: , Other Additional Past Surgical Histo: I&D abscess , RIGHT ARM, portacath placement Alcohol Use: None Drug Use: None Adult General Chief Complaint Chief Complaint: PAIN CONTROL HPI HPI Patient is a 22-year-old -Citizen Of [place] female who has a history of sickle cell anemia, and chronic pain from the same, who presents to the emergency department for evaluation. She states that for the past week, she has just felt not well, and been having pain "all over". She denies any focal pain. She has not had any fevers, chills, cough, or shortness of breath. She denies any chest pain. She has not had any urinary frequency, dysuria, or foul-smelling urine. She states the diffuse pain that she is having is typical of her sickle cell pain. She is followed by Dr Mccabe, Heme/Onc at [facility]. She states that she takes both Dilor and OxyContin for her pain, and is due to see her PCP for refill on 07/06, but she states she is almost out of her medication, because when she is certain she takes more medication than she is supposed to. She states that she does not have a chronic pain management physician, other than her director of fundraising. Review of the patient's prescription history reveals that most of her prescriptions have been consistently written by one physician, Dr. Mccabe. Review of Systems Review of Systems Constitutional: Denies fever or chills [] Eyes: Denies change in visual acuity, redness, or eye pain [] HENT: Denies nasal congestion or sore throat [] Respiratory: Denies cough or shortness of breath [] Cardiovascular: No additional information not addressed in HPI [] GI: Denies abdominal pain, nausea, vomiting, bloody stools or diarrhea [] : Denies dysuria or hematuria. The patient denies . [] Musculoskeletal: Denies focal back pain or focal joint pain. Reports diffuse pain [] Integument: Denies rash or skin lesions [] Neurologic: Denies headache, focal weakness or sensory changes [] Endocrine: Denies polyuria or polydipsia [] All other systems were reviewed and found to be within normal limits, except as documented in this note. Current Medications Current Medications Current Medications Medications (Trade) Dose Ordered Sig/Vanessa Start Time Stop Time Status Last Admin Dose Admin Hydromorphone HCl (Dilaudid) 8 mg 1X ONCE 06/27/18 12:45 06/27/18 12:46 DC 06/27/18 14:03 8 MG Ketorolac Tromethamine (Toradol 30mg Vial) 30 mg 1X ONCE 06/27/18 12:45 06/27/18 12:46 DC 06/27/18 13:57 30 MG Sodium Chloride 1,000 ml @ 1,000 mls/hr Q1H 06/27/18 12:39 06/27/18 13:38 DC 06/27/18 14:01 1,000 MLS/HR Allergies Allergies Allergies Coded Allergies Type Severity Reaction Last Updated Verified acetaminophen Allergy Intermediate ITCHING 09/02/16 Yes Physical Exam Physical Exam PHYSICAL EXAM: CONSTITUTIONAL: Well developed, well nourished HEAD: normocephalic, atraumatic EENT: PERRL, EOMI. Conjunctivae normal color, sclerae non-icteric; moist mucous membranes. NECK: Supple, non-tender; no meningismus. LUNGS: Lungs CTA, breathing even and unlabored. Normal air movement. HEART: Regular rate and rhythm, no murmur CHEST: No deformity; non-tender ABDOMEN: The abdomen is soft, and non-tender, no masses or bruits. EXTREM: Normal ROM; no deformity, no calf tenderness. Normal pulses palpable in all extremities. There is no pedal edema. SKIN: No rash; no diaphoresis NEURO: Alert; normal speech and cognition; CN's grossly intact; strength grossly intact without focal deficit. BACK: No CVA TTP. Current Patient Data Vital Signs Vital Signs Date Time Temp Pulse Resp B/P (MAP) Pulse Ox O2 Delivery O2 Flow Rate FiO2 06/27/18 12:27 98.1 94 16 128/63 (84) 98 Room Air 98.1 Lab Values Laboratory Tests Test 06/27/18 14:00 White Blood Count 10.4 x10^3/uL (4.0-11.0) Red Blood Count 2.13 x10^6/uL (3.50-5.40) L Hemoglobin 8.3 g/dL (12.0-15.5) L Hematocrit 23.3 % (36.0-47.0) L Mean Corpuscular Volume 110 fL (79-100) H Mean Corpuscular Hemoglobin 39 pg (25-35) H Mean Corpuscular Hemoglobin Concent 36 g/dL (31-37) Red Cell Distribution Width 16.8 % (11.5-14.5) H Platelet Count 337 x10^3/uL (140-400) Neutrophils (%) (Auto) 47 % (31-73) Lymphocytes (%) (Auto) 37 % (24-48) Monocytes (%) (Auto) 13 % (0-9) H Eosinophils (%) (Auto) 3 % (0-3) Basophils (%) (Auto) 1 % (0-3) Neutrophils # (Auto) 4.8 x10^3uL (1.8-7.7) Lymphocytes # (Auto) 3.8 x10^3/uL (1.0-4.8) Monocytes # (Auto) 1.4 x10^3/uL (0.0-1.1) H Eosinophils # (Auto) 0.3 x10^3/uL (0.0-0.7) Basophils # (Auto) 0.1 x10^3/uL (0.0-0.2) Reticulocyte Count (auto) 2.9 % (0.5-2.5) H Sodium Level 142 mmol/L (136-145) Potassium Level 3.9 mmol/L (3.5-5.1) Chloride Level 108 mmol/L (98-107) H Carbon Dioxide Level 26 mmol/L (21-32) Anion Gap 8 (6-14) Blood Urea Nitrogen 4 mg/dL (7-20) L Creatinine 0.6 mg/dL (0.6-1.0) Estimated GFR (Cockcroft-Gault) 148.6 BUN/Creatinine Ratio 7 (6-20) Glucose Level 99 mg/dL (70-99) Calcium Level 8.5 mg/dL (8.5-10.1) Total Bilirubin 1.3 mg/dL (0.2-1.0) H Aspartate Amino Transferase (AST) 33 U/L (15-37) Alanine Aminotransferase (ALT) 45 U/L (14-59) Alkaline Phosphatase 79 U/L (46-116) Creatine Kinase 22 U/L (26-192) L Total Protein 7.5 g/dL (6.4-8.2) Albumin 3.6 g/dL (3.4-5.0) Albumin/Globulin Ratio 0.9 (1.0-1.7) L Serum Test, Qualitative Negative (NEG) Laboratory Tests 06/27/18 14:00 Laboratory Tests 06/27/18 14:00 EKG EKG [] Radiology/Procedures Radiology/Procedures [] Course & Med Decision Making Course & Med Decision Making Pertinent Lab studies reviewed. (See chart for details) [2:48 PM:Patient remains stable. I discussed test results, the need for close follow-up, and return precautions. I did recommend to the patient that she might receive benefit from establishing care with a painter and decorator apprentice.] Dragon Disclaimer Dragon Disclaimer This electronic medical record was generated, in whole or in part, using a voice recognition dictation system. Departure Departure Impression: Primary Impression: Chronic pain Additional Impression: Sickle cell anemia Disposition: HOME, SELF-CARE Condition: STABLE Referrals: ANIA MCELROY MD (PCP) Patient Instructions: Chronic Pain, Sickle Cell Anemia, Sickle Cell Pain Crisis Additional Instructions: Follow-up with your primary care provider/director of fundraising, Dr. Mccabe for further management. You might have benefit from establishing care with a primary painter and decorator apprentice. Problem Qualifiers JENA SHELTON MD Jun 27, 2018 13:01
[2018-06-27 14:23] LABS: CALCIUM 8.5 mg/dL (8.5-10.1); CREATININE 0.6 mg/dL (0.6-1.0); GFR 148.6; POTASSIUM 3.9 mmol/L (3.5-5.1)
[2018-06-27 14:25] LABS: BASO # 0.1 x10^3/uL (0.0-0.2); BASO % 1 % (0-3); EOS # 0.3 x10^3/uL (0.0-0.7); EOS % 3 % (0-3); HEMATOCRIT 23.3 % (36.0-47.0); HEMOGLOBIN 8.3 g/dL (12.0-15.5); LYMPH # 3.8 x10^3/uL (1.0-4.8); LYMPH % 37 % (24-48); MEAN CORPUSCULAR HEMOGLOBIN 39 pg (25-35); MEAN CORPUSCULAR HGB CONC 36 g/dL (31-37); MEAN CORPUSCULAR VOLUME 110 fL (79-100); MONO # 1.4 x10^3/uL (0.0-1.1); MONO % 13 % (0-9); NEUT # 4.8 x10^3uL (1.8-7.7); NEUT % 47 % (31-73); PLATELET COUNT 337 x10^3/uL (140-400); RED BLOOD COUNT 2.13 x10^6/uL (3.50-5.40); RED CELL DISTRIBUTION WIDTH 16.8 % (11.5-14.5); WHITE BLOOD COUNT 10.4 x10^3/uL (4.0-11.0)
[2018-06-27 14:27] LABS: RETIC COUNT 2.9 % (0.5-2.5)
[2018-06-27 14:29] LABS: PREG TEST PT QUAL NEGATIVE (NEG)
[2018-06-27 14:30] LABS: ALBUMIN 3.6 g/dL (3.4-5.0); ALBUMIN/GLOBULIN RATIO 0.9 (1.0-1.7); TOTAL BILIRUBIN 1.3 mg/dL (0.2-1.0); TOTAL PROTEIN 7.5 g/dL (6.4-8.2)
[2018-06-27] MEDS ORDERED: DICL50TA4 PO (14:53)
[2018-06-27 15:18] VITALS: BP 117/61
[2018-06-27] MEDS ORDERED: HEPARIN PF 500 UNIT/5 ML DISP.SYRIN. IV ONE (15:30)
== END 2018-06-27 15:55 | disposition home or self-care (01) ==
LOC: ER 12:16
DX: G89.29 Other chronic pain (principal); D57.1 Sickle-cell disease without crisis; Z88.6 Allergy status to analgesic agent
CPT/HCPCS: 36415; 80053; 82550; 84703; 85025; 85045; 96374; 96375; 99285; J1885; J7030

== ENCOUNTER 2018-11-13 17:01 | Emergency (ER) | payer OTHER ==
[~2018-11-13] VITALS: Ht 170.2 cm; Wt 67.1 kg
[~2018-11-13 17:01] MED LIST changes: +DICL50TA4 PO; +HYDR8TAB PO; +LORA10TA3 PO; -OXYC-323 PO; +OXYC1TAB15 PO; -OXYC30TA PO; +OXYC30TA3 PO; +TIZA2TAB2 PO
[2018-11-13] MEDS ORDERED: IV NORMAL SALINE 1000ML BAG 1,000 ML IV ONE (17:30)
--- NOTE | 2018-11-13 17:52 | PHYS DOC ---
Past Medical History Past Medical History: Sickle Cell Disease Additional Past Medical Histor: sickle cell anemia Past Surgical History: , Other Additional Past Surgical Histo: I&D abscess , RIGHT ARM, portacath placement& REMOVAL Alcohol Use: None Drug Use: None Adult General Chief Complaint Chief Complaint: PAIN CONTROL HPI HPI Patient is a 23 year old [place]de[place] female with history of chronic pain, sickle cell anemia who presents with diffuse low back pain and intermittent right knee pain for the past 3 days. Patient states symptoms are consistent with previous sickle cell pain flares. Patient takes OxyContin 20 mg 4 times daily and up to 12 mg daily for sickle cell flares last took Dilaudid 1 hour prior to ED arrival. No fever chills, nausea vomiting or sweats. No chest pain, chest tightness, abdominal pain, urinary frequency urgency issue area. No headache, focal extremity weakness or loss of sensation. Last menstrual period was week ago. 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 [] Review of Systems Review of Systems Review symptoms as per history of present illness. All other review symptoms are negative. All other systems were reviewed and found to be within normal limits, except as documented in this note. Current Medications Current Medications Current Medications Medications (Trade) Dose Ordered Sig/Vanessa Start Time Stop Time Status Last Admin Dose Admin Sodium Chloride 1,000 ml @ 1,000 mls/hr 1X ONCE 11/13/18 17:30 11/13/18 18:29 Allergies Allergies Allergies Coded Allergies Type Severity Reaction Last Updated Verified acetaminophen Allergy Intermediate ITCHING 09/02/16 Yes Physical Exam Physical Exam Constitutional: Well developed, well nourished, no acute distress, non-toxic appearance. [] HENT: Normocephalic, atraumatic, bilateral external ears normal, oropharynx moist, no oral exudates, nose normal. [] Eyes: PERRLA, EOMI, conjunctiva normal, no discharge. [] Neck: Normal range of motion, no tenderness, supple, no stridor. [] Cardiovascular:Heart rate regular rhythm, no murmur [] Lungs & Thorax: Bilateral breath sounds clear to auscultation [] Abdomen: Bowel sounds normal, soft, no tenderness. [] Skin: Warm, dry, no erythema, no rash. [] Back: No tenderness, no CVA tenderness. [] Extremities: No tenderness, no cyanosis, no clubbing, ROM intact, no edema. [] Neurologic: Alert and oriented X 3, normal motor function, normal sensory function, no focal deficits noted. [] Psychologic: Affect normal, judgement normal, mood normal. [] EKG EKG [] Radiology/Procedures Radiology/Procedures [] Course & Med Decision Making Course & Med Decision Making Pertinent Labs and Imaging studies reviewed. (See chart for details) [Unremarkable physical exam, vital signs stable. Basic labs pending. Patient did take Dilaudid just prior to ED arrival. Care endorsed to oncoming ERP at 1800 with labs and disposition pending.] Dragon Disclaimer Dragon Disclaimer This electronic medical record was generated, in whole or in part, using a voice recognition dictation system. Departure Departure Impression: Primary Impression: Back pain Additional Impression: Arthralgia Referrals: NO PCP (PCP) Problem Qualifiers NANCY LARA DO Nov 13, 2018 17:52
[2018-11-13 18:19] LABS: BILIRUBIN,URINE NEGATIVE (NEG); CLARITY,URINE CLEAR; COLOR,URINE YELLOW; NITRITE,URINE NEGATIVE (NEG); PH,URINE 5.5; PROTEIN,URINE NEGATIVE (NEG-TRACE); UROBILINOGEN,URINE 0.2 mg/dL (0.2 mg/dL)
[2018-11-13 18:23] LABS: BACTERIA,URINE 0 /HPF (0-FEW); RBC,URINE 0 /HPF (0-2); SQUAMOUS EPITHELIAL CELL,UR FEW /LPF; WBC,URINE 0 /HPF (0-4)
[2018-11-13 18:30] LABS: BASO % 0 % (0-3); EOS # 0.2 x10^3/uL (0.0-0.7); EOS % 2 % (0-3); HEMOGLOBIN 9.9 g/dL (12.0-15.5); LYMPH # 5.6 x10^3/uL (1.0-4.8); LYMPH % 57 % (24-48); MEAN CORPUSCULAR HEMOGLOBIN 44 pg (25-35); MEAN CORPUSCULAR HGB CONC 34 g/dL (31-37); MEAN CORPUSCULAR VOLUME 127 fL (79-100); MONO # 0.6 x10^3/uL (0.0-1.1); MONO % 6 % (0-9); NEUT # 3.5 x10^3uL (1.8-7.7); NEUT % 36 % (31-73); PLATELET COUNT 412 x10^3/uL (140-400); RED BLOOD COUNT 2.28 x10^6/uL (3.50-5.40); RED CELL DISTRIBUTION WIDTH 19.9 % (11.5-14.5); RETIC COUNT 3.5 % (0.5-2.5); WHITE BLOOD COUNT 9.8 x10^3/uL (4.0-11.0)
[2018-11-13] MEDS ORDERED: ONDANSETRON PF 4 MG/2 ML VIAL. ONE (18:43)
[2018-11-13 18:44] LABS: ALBUMIN 3.4 g/dL (3.4-5.0); ALBUMIN/GLOBULIN RATIO 0.7 (1.0-1.7); CREATININE 0.6 mg/dL (0.6-1.0); GFR 147.4; POTASSIUM 4.1 mmol/L (3.5-5.1); TOTAL BILIRUBIN 0.7 mg/dL (0.2-1.0); TOTAL PROTEIN 8.2 g/dL (6.4-8.2)
[2018-11-13] MEDS ORDERED: HYDROmorphone 2 MG/ML VIAL ONE (18:44)
[2018-11-13] MEDS ORDERED: HYDROmorphone 2 MG/ML VIAL IV ONE (18:45)
[2018-11-13] MEDS ORDERED: ONDANSETRON PF 4 MG/2 ML VIAL. IM ONE (18:45)
[2018-11-13] MEDS ORDERED: ONDANSETRON PF 4 MG/2 ML VIAL. IV ONE (19:00)
[2018-11-13] MEDS ORDERED: KETOROLAC 15 MG/ML VIAL. IV ONE (19:15)
[2018-11-13 19:33] LABS: ANISOCYTOSIS SLIGHT; PLT ESTIMATE ADEQUATE (ADEQUATE); POIKILOCYTOSIS SLIGHT; POLYCHROMASIA SLIGHT
[2018-11-13 19:34] LABS: HOWELL-JOLLY BODIES PRESENT; SICKLE CELLS PRESENT; TARGET CELLS PRESENT
[2018-11-13 20:28] VITALS: BP 101/57
[2018-11-14] MEDS ORDERED: ONDA4TAB12 PO (21:13)
== END 2018-11-13 20:35 | disposition home or self-care (01) ==
LOC: ER 17:01
DX: M54.5 Low back pain (principal); M25.561 Pain in right knee; G89.29 Other chronic pain; Z86.2 Personal history of diseases of the blood and blood-forming organs and certain disorders involving the immune mechanism; Z88.6 Allergy status to analgesic agent
CPT/HCPCS: 36415; 80053; 81001; 81025; 85025; 85045; 96374; 96375; 99283; J1170; J1885; J2405; J7030

== ENCOUNTER 2018-11-14 19:33 | Emergency (ER) | payer OTHER ==
[~2018-11-14] VITALS: Ht 170.2 cm; Wt 67.1 kg
[~2018-11-14 19:33] MED LIST changes: +TIZA2TAB PO; -TIZA2TAB2 PO
[2018-11-14 19:45] VITALS: BP 113/66
[2018-11-14] MEDS ORDERED: ONDANSETRON ODT 4 MG TAB.RAPDIS. PO ONE (19:45)
[2018-11-14] MEDS ORDERED: ONDA4TAB12 PO (21:13)
--- NOTE | 2018-11-14 21:13 | PHYS DOC ---
Past Medical History Past Medical History: Sickle Cell Disease Additional Past Medical Histor: sickle cell anemia Past Surgical History: , Other Additional Past Surgical Histo: I&D abscess , RIGHT ARM, portacath placement& REMOVAL Alcohol Use: None Drug Use: None Adult General Chief Complaint Chief Complaint: PAIN CONTROL HPI HPI Patient is a 23 year old [f__sex] who presents with [] Review of Systems Review of Systems Constitutional: Denies fever or chills [] Eyes: Denies change in visual acuity, redness, or eye pain [] HENT: Denies nasal congestion or sore throat [] Respiratory: Denies cough or shortness of breath [] Cardiovascular: No additional information not addressed in HPI [] GI: Denies abdominal pain, nausea, vomiting, bloody stools or diarrhea [] : Denies dysuria or hematuria [] Musculoskeletal: Denies back pain or joint pain [] Integument: Denies rash or skin lesions [] Neurologic: Denies headache, focal weakness or sensory changes [] Endocrine: Denies polyuria or polydipsia [] All other systems were reviewed and found to be within normal limits, except as documented in this note. Current Medications Current Medications Current Medications Medications (Trade) Dose Ordered Sig/Vanessa Start Time Stop Time Status Last Admin Dose Admin Ondansetron HCl (Zofran Odt) 4 mg 1X ONCE 11/14/18 19:45 11/14/18 19:46 DC 11/14/18 19:55 4 MG Allergies Allergies Allergies Coded Allergies Type Severity Reaction Last Updated Verified acetaminophen Allergy Intermediate ITCHING 09/02/16 Yes Physical Exam Physical Exam Constitutional: Well developed, well nourished, no acute distress, non-toxic appearance. [] HENT: Normocephalic, atraumatic, bilateral external ears normal, oropharynx moist, no oral exudates, nose normal. [] Eyes: PERRLA, EOMI, conjunctiva normal, no discharge. [] Neck: Normal range of motion, no tenderness, supple, no stridor. [] Cardiovascular:Heart rate regular rhythm, no murmur [] Lungs & Thorax: Bilateral breath sounds clear to auscultation [] Abdomen: Bowel sounds normal, soft, no tenderness, no masses, no pulsatile masses. [] Skin: Warm, dry, no erythema, no rash. [] Back: No tenderness, no CVA tenderness. [] Extremities: No tenderness, no cyanosis, no clubbing, ROM intact, no edema. [] Neurologic: Alert and oriented X 3, normal motor function, normal sensory function, no focal deficits noted. [] Psychologic: Affect normal, judgement normal, mood normal. [] Current Patient Data Vital Signs Vital Signs Date Time Temp Pulse Resp B/P (MAP) Pulse Ox O2 Delivery O2 Flow Rate FiO2 11/14/18 19:45 98.6 80 16 113/66 (82) 97 Room Air 98.6 EKG EKG [] Radiology/Procedures Radiology/Procedures [] Course & Med Decision Making Course & Med Decision Making Pertinent Labs and Imaging studies reviewed. (See chart for details) [] Dragon Disclaimer Dragon Disclaimer This electronic medical record was generated, in whole or in part, using a voice recognition dictation system. Departure Departure Impression: Primary Impression: Chronic pain Additional Impression: Nausea Disposition: 01 HOME, SELF-CARE Condition: STABLE Referrals: NO PCP (PCP) Patient Instructions: Chronic Pain, Nausea and Vomiting Additional Instructions: Take the Zofran to control nausea. Increase fluids and rest. Follow-up with your primary care provider tomorrow. Take your at home pain medications as directed. Scripts Ondansetron (ONDANSETRON ODT) 4 Mg Tab.rapdis 1 TAB PO PRN Q6-8HRS for nausea, #16 TAB Prov: MENDOZA AGUIAR APRN 11/14/18 Problem Qualifiers MENDOZA AGUIAR APRN Nov 14, 2018 21:13
== END 2018-11-14 21:50 | disposition home or self-care (01) ==
LOC: ER 19:33
DX: G89.29 Other chronic pain (principal); R11.0 Nausea; D57.1 Sickle-cell disease without crisis; Z98.890 Other specified postprocedural states; Z88.6 Allergy status to analgesic agent
CPT/HCPCS: 99283; Q0162

== ENCOUNTER 2018-11-25 05:24 | Emergency (ER) | payer OTHER ==
[~2018-11-25] VITALS: Ht 170.2 cm; Wt 67.1 kg
[~2018-11-25 05:24] MED LIST changes: +ONDA4TAB12 PO
--- NOTE | 2018-11-25 06:54 | PHYS DOC ---
Past Medical History Past Medical History: Sickle Cell Disease Additional Past Medical Histor: sickle cell anemia Past Surgical History: , Other Additional Past Surgical Histo: I&D abscess , RIGHT ARM, portacath placement& REMOVAL Additional Information: 4-5 CIGARETTES PER DAY Alcohol Use: None Drug Use: Marijuana Adult General Chief Complaint Chief Complaint: PAIN CONTROL HPI HPI Patient is a 23 year old female who presents with "pain all over." Describes the pain as diffuse, sharp stabbing pain without localization to any specific area. Rated 9/10. No aggravating or alleviating factors. Reports discharge from [facility] yesterday with 4 day LOS. She has a follow-up with her PCP at [facility] on Thursday11/29/18. Denies any recent illness , shortness of breath, fever, chills, nausea, vomiting, constipation or diarrhea. Review of Systems Review of Systems Constitutional: Denies fever or chills [] Eyes: Denies change in visual acuity, redness, or eye pain [] HENT: Denies nasal congestion or sore throat [] Respiratory: Denies cough or shortness of breath [] Cardiovascular: No additional information not addressed in HPI [] GI: Denies abdominal pain, nausea, vomiting, bloody stools or diarrhea [] : Denies dysuria or hematuria [] Musculoskeletal: Denies back pain or joint pain [] Integument: Denies rash or skin lesions [] Neurologic: Denies headache, focal weakness or sensory changes [] Endocrine: Denies polyuria or polydipsia [] All other systems were reviewed and found to be within normal limits, except as documented in this note. Current Medications Current Medications Current Medications Medications (Trade) Dose Ordered Sig/Vanessa Start Time Stop Time Status Last Admin Dose Admin Hydromorphone HCl (Dilaudid) 2 mg 1X ONCE 11/25/18 07:00 11/25/18 07:01 DC 11/25/18 06:50 2 MG Ketorolac Tromethamine (Toradol 30mg Vial) 30 mg 1X ONCE 11/25/18 07:30 11/25/18 07:32 DC 11/25/18 07:39 30 MG Allergies Allergies Allergies Coded Allergies Type Severity Reaction Last Updated Verified acetaminophen Allergy Intermediate ITCHING 09/02/16 Yes Physical Exam Physical Exam Constitutional: Well developed, well nourished, mild acute distress, non-toxic appearance. HENT: Normocephalic, atraumatic, bilateral external ears normal, oropharynx moist, no oral exudates, nose normal. Eyes: PERRLA, EOMI, conjunctiva normal, no discharge. Neck: Normal range of motion, no tenderness, supple, no stridor. Cardiovascular:Heart rate regular rhythm, no murmur Lungs & Thorax: Bilateral breath sounds clear to auscultation Abdomen: Bowel sounds normal, soft, no tenderness, no masses, no pulsatile masses. Skin: Warm, dry, no erythema, no rash. Back: No tenderness, no CVA tenderness. Extremities: No tenderness, no cyanosis, no clubbing, ROM intact, no edema, no bony abnormalities. Neurologic: Alert and oriented X 3, normal motor function, normal sensory function, no focal deficits noted. Psychologic: Affect constricted, tearful, judgement normal, mood . Current Patient Data Vital Signs Vital Signs Date Time Temp Pulse Resp B/P (MAP) Pulse Ox O2 Delivery O2 Flow Rate FiO2 11/25/18 07:41 16 11/25/18 07:27 83 97 11/25/18 06:50 Room Air 11/25/18 05:30 98.5 107/55 (72) 98.5 EKG EKG [] Radiology/Procedures Radiology/Procedures [] Course & Med Decision Making Course & Med Decision Making Pt is a 23 year old female with past medical history of sickle cell anemia who presents with uncontrolled chronic pain. Expectation management that patient will not have total elimination of pain even with treatment here in the ED. Recommended discussion with PCP regarding long-term management. In the setting of recent discharge from [facility] and lack of specific complaint, labs and imaging do not seem warranted at this time. Conservative pain management. Pertinent Labs and Imaging studies reviewed. (See chart for details) Plan: Pain management dilaudid and toradol were given. she said it didnt really help but she did appear much more comfortable on re-evaluation. transient drop in bp likely parenteral narcotic related, it was improving. return prec discussed no focal symptoms or findings on physical exam, i dont thinkw e need labwork at this time Follow up with PCP at [facility] for scheduled appointment 11/29/18 [] Dragon Disclaimer Dragon Disclaimer This electronic medical record was generated, in whole or in part, using a voice recognition dictation system. Departure Departure Impression: Primary Impression: Chronic pain Disposition: HOME, SELF-CARE Condition: STABLE Referrals: NO PCP (PCP) VIK ALMAGUER MD Nov 25, 2018 06:54
[2018-11-25] MEDS ORDERED: HYDROmorphone 2 MG/ML VIAL IM ONE (07:00)
[2018-11-25] MEDS ORDERED: KETOROLAC 30 MG/ML VIAL. IM ONE (07:30)
[2018-11-25 07:41] VITALS: BP 109/69
== END 2018-11-25 08:41 | disposition home or self-care (01) ==
LOC: ER 05:24
DX: G89.29 Other chronic pain (principal); Z86.2 Personal history of diseases of the blood and blood-forming organs and certain disorders involving the immune mechanism; F17.210 Nicotine dependence, cigarettes, uncomplicated; Z88.6 Allergy status to analgesic agent
CPT/HCPCS: 96372; 99283; J1170; J1885